=== PATIENT | male | born 1955 | race Caucasian/White ===

== ENCOUNTER 2019-12-01 17:04 | Inpatient (IN) | payer OTHER ==
[2019-12-01 17:45] LABS: #Lymphocytes 1.1 thou/uL (1.20-3.40); #Monocytes 0.6 thou/uL (0.11-0.59); %Basophils 0.1 % (0.0-1.0); %Eosinophils 0.1 % (0.0-10.0); %Lymphocytes 10.6 % (21.0-51.0); %Monocytes 5.6 % (0.0-10.0); %Neutrophils 83.7 % (42.0-75.0); Hemoglobin 15.2 g/dL (14.0-18.0); Mean Corpuscular HGB CONC 32.5 g/dL (32.0-36.0); Mean Corpuscular Hemoglobin 31.6 pg (27.0-31.0); Mean Corpuscular Volume 97.4 fL (78.0-98.0); Mean Platelet Volume 9.2 fL (7.4-10.4); Platelet Count 133 thou/uL (130-400); RBC Distribution Width 11.5 % (11.5-14.5); White Blood Cell (WBC) Count 10.8 thou/uL (4.8-10.8)
[2019-12-01 18:07] LABS: ALT (SGPT) 16 U/L (8-55); AST (SGOT) 55 U/L (5-34); Alkaline Phosphatase 121 U/L (40-110); Anion Gap 17 mmol/L (10-20); BUN (Urea Nitrogen) 19 mg/dL (8.4-25.7); CK (CPK) 2595 U/L (30-200); Calc. Creatinine Clearance 0 mL/min (70-130); Carbon Dioxide 21 mmol/L (23-31); Chloride 106 mmol/L (98-107); Estimated GFR-MDRD Greater than 90; Globulin 4.2 g/dL (2.4-3.5); Glucose 102 mg/dL (80-115); Protein, Total 9.2 g/dL (5.8-8.1); Sodium 140 mmol/L (136-145)
--- NOTE | 2019-12-01 18:23 | CT ---
CT HEAD WITHOUT CONTRAST: 12/01/19 INDICATIONS: Mental status change. There are no comparison studies. FINDINGS: There is large area of encephalomalacia involving the right temporal frontal lobe and parasylvian re gion indicating an old right middle cerebral artery distribution infarct. There is cortical lucency with sulcal effacement consistent with cytotoxic edema involving the left f rontal lobe consistent with acute/subacute infarct in the left MCA distribution. No hemorrhage. Ventricles have normal position. There is mild ex vacuo dilatation of the right lateral ventricle due to the right side volume loss. IMPRESSION: 1. Evidence of acute/subacute infarct involving the left frontal lobe. 2. Large area of encephalomalacia involving the right cerebral hemisphere indicating old infarct as described above. Findings relayed to the Emergency Room physician, Dr. Schultz at time of dictation. POS: JOSEPH
--- NOTE | 2019-12-01 18:29 | RAD ---
PORTABLE CHEST: 12/01/19 HISTORY: Hypertension. Mental status change. No comparison. Cardiomegaly. Mild vascular engorgement without infiltrate, edema, or effusion. IMPRESSION: Cardiomegaly with mild vascular engorgement. POS: AGW
[2019-12-01 18:39] LABS: CKMB 13.1 ng/mL (0-6.6)
[2019-12-01] MEDS ORDERED: Aspirin 300 MG Suppository ONE (19:01)
[2019-12-01 20:04] LABS: Bacteria/HPF None Seen HPF (None Seen); Bilirubin Negative (Negative); Blood, Urine 1+ (Negative); Clarity Clear (Clear); Glucose, Urine (Dipstick) Normal (Negative); Leukocyte Negative Leu/uL (Negative); Nitrite Negative (Negative); Protein, Urine (Dipstick) 30 mg/dL (Neg-Trace); RBC/HPF 21-50 HPF (0-3); Squamous Epithelial None Seen HPF (0-3); Urobilinogen Normal mg/dL (Less than 2); WBC/HPF 0-3 HPF (0-3)
[2019-12-01 21:44] LABS: Troponin I 0.034 ng/mL (< 0.028)
[2019-12-01] MEDS ORDERED: Cefepime 2 GM VIAL ONE (22:02)
[2019-12-01] MEDS ORDERED: Acetaminophen 650 MG Suppository ONE (22:04)
[2019-12-01] MEDS ORDERED: Vancomycin 1.5 GRAM/300 ML BAG 1.5 GM in Premix Bag 1 BAG IVPB SCH (22:15)
[2019-12-01] MEDS ORDERED: hydrALAZINE 20 MG/ML VIAL SLOW IVP PRN (23:09)
[2019-12-01] MEDS ORDERED: Ondansetron ODT 4 MG TAB PO PRN (23:14)
[2019-12-01] MEDS ORDERED: Ondansetron PF 4 MG/2 ML Vial IVP PRN (23:14)
[2019-12-01] MEDS ORDERED: Meropenem 1 GM in Sodium Chloride 0.9% 100 ML IVPB SCH (23:15)
[2019-12-02 00:23] LABS: INR-International Normal Ratio 1.2; Prothrombin Time 15.4 SEC (12.0-14.7)
[2019-12-02 00:24] LABS: PTT 30.6 SEC (22.9-36.1)
[2019-12-02] MEDS: D5 1/2 NS w/20 mEq KCL 1,000 ML IV SCH ×3 (00:48→14:31)
[2019-12-02] MEDS: MEROPENEM 1 GM/50 ML 1 GM in Premix Bag 1 BAG IVPB SCH ×3 (00:49→17:19)
[2019-12-02] MEDS ORDERED: Labetalol HCl 100 MG/20 ML VIAL SLOW IVP PRN (00:54)
--- NOTE | 2019-12-02 01:35 | HP ---
PRIMARY CARE PHYSICIAN: Patient is an inmate. CHIEF COMPLAINT: Altered mentation. HISTORY OF PRESENT ILLNESS: Patient is a 64-year-old male, with CVA, hypertension, and atrial fibrillation, was brought in to the emergency room by EMS with above complaints. History is limited due to the patient's mentation. He is currently at the [facility]. His baseline mentation is unavailable. He has chronic left-sided weakness secondary to right MCA CVA with hemorrhagic transformation in the past. He is currently on aspirin. He used to be on Coumadin until one or two months ago. Again, history is limited due to lack of access to the previous records. The patient was found to have altered mentation around 2:00 p.m. His blood pressures were in 160s. Eventually, [employer] was called. Patient is unable to talk at this time, however, he is able to nod to yes and no on and off. There is no fever or chills reported. He denies any pain at this time. In the emergency room, his initial vital signs showed temperature 99.8, respirations 20, pulse rate of 115 with a blood pressure of 179/118, and O2 saturation of 93% on room air. His CT scan of the brain showed acute/subacute infarct involving the left frontal lobe. He received aspirin in the emergency room. Later on, he was found to have 100.8 fever, for which blood cultures were obtained. He then received vancomycin and cefepime. He failed swallow evaluation in the emergency room. His initial NIH was 13 with a repeat NIH of 20. PAST MEDICAL HISTORY: 1. Hypertension. 2. Chronic atrial fibrillation. 3. Chronic hepatitis C. 4. Dementia. 5. Benign prostatic hypertrophy. 6. Degenerative joint disease. 7. 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 8. Hemorrhoids. PAST SURGICAL HISTORY: Unable to obtain due to current mentation. CURRENT MEDICATIONS: At the unit, 1. Aspirin 81 mg daily. 2. Colace 100 mg twice a day. 3. Terazosin 1 mg daily. 4. Cymbalta 30 mg daily. 5. Lipitor 40 mg at bedtime. 6. Amlodipine 5 mg daily. 7. Keppra 500 mg twice a day. 8. Lisinopril 40 mg daily. 9. Minoxidil 2.5 mg daily. 10. Omeprazole 20 mg daily. SOCIAL HISTORY: Cannot be obtained due to current mentation. FAMILY HISTORY: Cannot be obtained due to current mentation. REVIEW OF SYSTEMS: Cannot be obtained due to current mentation. PHYSICAL EXAMINATION: VITAL SIGNS: As discussed above. GENERAL: A 64-year-old male, in no apparent distress. HEENT: Head, atraumatic and normocephalic. Sclerae anicteric. No oral lesion. NECK: Supple. No JVD. No carotid bruit. No neck stiffness. LUNGS: Showed diminished air entry at bilateral bases with few rhonchi. HEART: 2/6 systolic murmur over the mitral area. ABDOMEN: Soft, nontender. Bowel sounds present. No rebound or guarding. EXTREMITIES: 1+ edema in bilateral lower extremity. No calf tenderness. SKIN: Warm and dry. PSYCHIATRY: Limited due to current mentation. NEUROLOGIC: Limited due to current mentation. There is no hypotonia on the right on limited examination. His strength in the left lower extremity is 3/5. He has handcuffs in the upper extremities. DIAGNOSTIC TESTS: 1. EKG by my review showed atrial fibrillation with PVCs. 2. CBC showed WBC 10.8 with hemoglobin 15.2, hematocrit 46.8, and platelet of 133. 3. PT of 15.4, INR 1.2, and PTT 30.6. 4. Chemistry showed sodium 140, potassium 4, chloride 106, bicarb 21, BUN 19, creatinine 0.8, calcium 11.0, AST of 55, ALT of 16, and alkaline phosphatase of 121. CK of 2595, troponin of 0.039 with CK-MB of 13. 5. Urinalysis was negative for wbc or bacteria. 6. Blood cultures have been sent. 7. Chest x-ray by my review was negative for infiltrate or edema. 8. CT scan of the brain by my review as discussed above. IMPRESSION: 1. Acute left frontal lobe cerebrovascular accident. 2. Encephalopathy secondary to cerebrovascular accident. 3. Rhabdomyolysis. 4. Low-grade fever of unclear etiology. 5. History of right middle cerebral artery cerebrovascular accident with hemorrhagic transformation causing left-sided weakness. 6. Hypertension. 7. Chronic atrial fibrillation, on aspirin. 8. Chronic hepatitis C. 9. Benign prostatic hypertrophy. 10. Degenerative joint disease. 11. Dementia. PLAN: Patient will be monitored in the stroke unit. We will continue aspirin. He has failed swallow evaluation. We will change Keppra to IV. Stroke Team will be consulted. Empiric meropenem for now. He received 1 dose of vancomycin in the emergency room. Recheck CK with other labs in the a.m. Check fasting lipid profile in the a.m. Neurology consultation. We will get MRI of the brain and carotid Doppler. Echocardiogram will be obtained. Neuro checks per protocol. Speech Therapy consultation. Gentle IV hydration for now. We will discuss the plan of care with the patient. Job ID: [id number]
[2019-12-02 05:34] LABS: ALT (SGPT) 16 U/L (8-55); AST (SGOT) 58 U/L (5-34); Albumin 3.8 g/dL (3.4-4.8); Alkaline Phosphatase 89 U/L (40-110); Anion Gap 14 mmol/L (10-20); BUN (Urea Nitrogen) 17 mg/dL (8.4-25.7); Bilirubin, Total 0.8 mg/dL (0.2-1.2); CK (CPK) 2558 U/L (30-200); Calc. Creatinine Clearance 121 mL/min (70-130); Calcium 9.4 mg/dL (7.8-10.44); Carbon Dioxide 18 mmol/L (23-31); Cardiac Risk 3.1 (Less than 4.5); Chloride 111 mmol/L (98-107); Cholesterol 65 mg/dl (< 200 Desired); Estimated GFR-MDRD Greater than 90; Globulin 3.1 g/dL (2.4-3.5); Glucose 107 mg/dL (80-115); HDL Cholesterol 21 mg/dL (>60 Neg Risk); LDL Cholesterol, Calculated 35 mg/dL; Magnesium 1.7 mg/dL (1.6-2.6); Potassium 3.9 mmol/L (3.5-5.1); Protein, Total 6.9 g/dL (5.8-8.1); Sodium 139 mmol/L (136-145); Triglycerides 44 mg/dL (Less than 150)
[2019-12-02 05:38] LABS: Troponin I 0.041 ng/mL (< 0.028)
[2019-12-02 06:23] LABS: Hemoglobin 13.2 g/dL (14.0-18.0); Mean Corpuscular HGB CONC 32.8 g/dL (32.0-36.0); Mean Corpuscular Hemoglobin 32.5 pg (27.0-31.0); Mean Corpuscular Volume 99.3 fL (78.0-98.0); RBC Distribution Width 11.4 % (11.5-14.5); Red Blood Cell (RBC) Count 4.07 mill/uL (4.70-6.10); White Blood Cell (WBC) Count 7.1 thou/uL (4.8-10.8)
[2019-12-02 06:47] LABS: #Monocytes 0.6 thou/uL (0.11-0.59); #Neutrophils 5.5 thou/uL (1.40-6.50); %Basophils 0.1 % (0.0-1.0); %Eosinophils 0.3 % (0.0-10.0); %Lymphocytes 13.7 % (21.0-51.0); %Monocytes 8.7 % (0.0-10.0); %Neutrophils 77.1 % (42.0-75.0); Mean Platelet Volume 8.9 fL (7.4-10.4); Platelet Count 114 thou/uL (130-400); Platelet Morphology Comment Appears Adequate
[2019-12-02] MEDS ORDERED: Aspirin 81 mg Enteric Coated Tablet PO SCH (09:00)
[2019-12-02] MEDS ORDERED: Heparin 5,000 UNITS/ML VIAL SC SCH (09:00)
[2019-12-02] MEDS ORDERED: Aspirin 300 MG Suppository PR SCH (09:00)
[2019-12-02] MEDS: Famotidine/PF 20 mg/2ml Vial SLOW IVP SCH ×2 (09:13→21:26)
[2019-12-02] MEDS: Famotidine 20 MG TAB PO SCH ×2 (09:13→21:47)
[2019-12-02 10:11] LABS: SARS-CoV-2 MS2 Positive; SARS-CoV-2 N Gene Negative; SARS-CoV-2 S Gene Negative; SARS-CoV-2 orf1ab Negative
--- NOTE | 2019-12-02 11:45 | ULT ---
BILATERAL CAROTID DUPLEX ULTRASOUND: HISTORY: Acute CVA. TECHNIQUE: Oh scale ultrasound with color flow and spectral Doppler imaging of the extracranial carotid artery systems was performed bilaterally. FINDINGS: Oh scale ultrasound with color flow and spectral Doppler imaging of the extracranial carotid artery systems is performed bilaterally. FINDINGS: There is plaque formation noted on both sides. The peak systolic velocity in the right ICA measures 50 cm/s with an end-diastolic velocity of 17 cm/ s and a systolic ratio of 0.81. The peak systolic velocity in the left ICA measures 65 cm/s with an end-diastolic velocity of 3 cm/s and a systolic ratio of 0.82. Flow in both vertebral arteries remains antegrade. IMPRESSION: No evidence of hemodynamically significant stenosis. POS: SJDI
--- NOTE | 2019-12-02 12:49 | PDOC.HOSPP ---
- Subjective Encounter Date: 12/02/19 Encounter Time: 12:45 Subjective: f/u for L frontal CVA likely embolic in context of chronic a-fib not on anticoagulation. Receiving general stroke protocol, pending DENTAL OFFICER evaluation. Remains aphasic. - Objective Vital Signs & Weight: Vital Signs (12 hours) Temp Pulse Resp BP BP Pulse Ox 12/02/19 11:45 99.1 F 101 H 18 167/105 H 92 L 12/02/19 09:40 100.5 F H 103 H 28 H 165/99 H 93 L 12/02/19 03:14 98.7 F 85 16 151/89 H 92 L 12/02/19 01:29 93 L Weight Weight 200 lb Result Diagrams: 12/02/19 05:09 12/02/19 05:09 Additional Labs: Microbiology 12/01/19 22:11 Venous blood - Left Hand Blood Culture - Preliminary Specimen has been received and culture in progress. No Growth to date. 12/01/19 21:42 Venous blood - Left Hand Blood Culture - Preliminary Specimen has been received and culture in progress. No Growth to date. Laboratory Tests 12/01/19 12/01/19 12/01/19 17:30 17:30 21:48 Lactic Acid 1.2 Magnesium 1.8 AST 55 H Creatine Kinase 2595 H TSH 3rd Generation COVID-19 PCR 12/01/19 12/02/19 12/02/19 22:25 05:09 05:09 Lactic Acid Magnesium 1.7 AST 58 H Creatine Kinase 2558 H TSH 3rd Generation 1.0758 COVID-19 PCR Not Detected Radiology Reviewed by me: Yes (Carotid sono - no significant stenosis) EKG Reviewed by me: Yes (Tele - A-fib in 90's) Hospitalist ROS - Medication Medications: Active Medications Generic Name Dose Route Start Last Admin Trade Name Freq PRN Reason Stop Dose Admin Aspirin 81 mg 12/02/19 09:00 12/02/19 09:14 Ecotrin PO Not Given DAILY ADALGISA Aspirin 300 mg 12/02/19 09:00 12/02/19 09:12 Aspirin [place] 300 mg DAILY ADALGISA Administration Famotidine 20 mg 12/02/19 09:00 12/02/19 09:13 Pepcid SLOW IVP 20 mg Q12HR ADALGISA Administration Famotidine 20 mg 12/02/19 09:00 12/02/19 09:13 Pepcid PO Not Given BID ADALGISA Heparin Sodium (Porcine) 5,000 units 12/02/19 09:00 12/02/19 09:12 Heparin SC 5,000 units BID ADALGISA Administration Potassium Chloride/Dextrose/Sod Cl 1,000 mls @ 125 mls/hr 12/01/19 23:15 12:20 D5 1/2 Ns W/20 Meq Kcl IV 1,000 mls .Q8H ADALGISA Administration Meropenem 1 gm/ Device 50 mls @ 100 mls/hr 12/01/19 23:59 12/02/19 09:14 IVPB 50 mls 0800,1600,2359 ADALGISA Administration Levetiracetam 500 mg/ Device 100 mls @ 200 mls/hr 12/02/19 09:00 12/02/19 11: 12 IVPB 100 mls BID ADALGISA Administration Sodium Chloride 10 ml 12/01/19 23:09 12/02/19 09:15 Flush - Normal Saline IVF 10 ml PRN PRN Administration Saline Flush - Exam General Appearance: NAD, awake alert Eye: PERRL, anicteric sclera ENT: normocephalic atraumatic, no oropharyngeal lesions Neck: supple, symmetric, no JVD, no thyromegaly Heart: no gallops, no rubs, normal peripheral pulses, irregular, murmur present , II/IV Heart - other findings: S1, S2 Respiratory: CTAB, no wheezes, no rales, no ronchi, normal chest expansion Gastrointestinal: soft, non-tender, non-distended, normal bowel sounds, no palpable masses Extremities: no cyanosis, no clubbing, no edema Skin: normal turgor, no lesions Neurological - other findings: L hemiplegia - chronic, aphasic, RUE weakness Musculoskeletal: generalized weakness Psychiatric: oriented to person, somnolent Hosp A/P (1) Acute CVA (cerebrovascular accident) Code(s): I63.9 - CEREBRAL INFARCTION, UNSPECIFIED Status: Acute Plan: Likely embolic given A-fib and not on anticoagulation, continue ASA, 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, stroke protocol, DENTAL OFFICER pending (2) Expressive aphasia Code(s): R47.01 - APHASIA Status: Acute Plan: Secondary to #1, DENTAL OFFICER following (3) Acute metabolic encephalopathy Code(s): G93.41 - METABOLIC ENCEPHALOPATHY Status: Acute Plan: Persistent, secondary to #1 (4) Rhabdomyolysis Code(s): M62.82 - RHABDOMYOLYSIS Status: Acute Qualifiers: Rhabdomyolysis type: non-traumatic Qualified Code(s): M62.82 - Rhabdomyolysis Plan: Continue to monitor, low-volume IVF's, avoid statins currently, serial CK monitoring (5) Chronic atrial fibrillation Code(s): I48.20 - CHRONIC ATRIAL FIBRILLATION, UNSPECIFIED Status: Chronic Plan: Continue rate-control medication regimen, ASA, consider risk for detention anticoagulation (6) Febrile Code(s): R50.9 - FEVER, UNSPECIFIED Status: Acute Plan: ? etiology, no focal process identified, continue monitor closely, r/o for COVID x 1 (7) HTN (hypertension) Code(s): I10 - ESSENTIAL (PRIMARY) HYPERTENSION Status: Chronic Qualifiers: Hypertension type: essential hypertension Qualified Code(s): I10 - Essential (primary) hypertension Plan: Labile, resume home BP regimen when cleared for po intake, permissive HTN currently per guidelines - Plan continue antibiotics, PT/OT, social media senior associate, speech therapy, DVT proph w/SCDs Continue routine stroke protocol ASA daily Hold statins x 48h given rhabdomyolysis Echo pending DENTAL OFFICER/PT/OT Consider risks of anticoagulation detention Continue IVF's AM lab: CMP, CK
--- NOTE | 2019-12-02 15:03 | EKG ---
Test Reason : Blood Pressure : / mmHG Vent. Rate : 116 BPM Atrial Rate : 116 BPM P-R Int : 000 ms QRS Dur : 094 ms QT Int : 322 ms P-R-T Axes : 000 108 -70 degrees QTc Int : 447 ms Atrial fibrillation with frequent Premature ventricular and fusion complexes Motion artifact Abnormal ECG Confirmed by HARLAN PIEDRA DO ([id number]), general expeditor SHERRI COBB ([id number]) on 12/02/2019 3:03:14 PM Referred By: Confirmed By:HARLAN PIEDRA DO
--- NOTE | 2019-12-02 15:16 | MRI ---
MRI BRAIN NONCONTRAST: DATE: 12/02/2019 HISTORY: 64-year-old male with stroke FINDINGS: There is a moderate size region of cytotoxic edema involving the lateral aspect of the left frontal l obe, beginning inferiorly at the region just superior to the greater wing of the sphenoid bone, and extending superiorly to involve the middle frontal gyrus near the convexity. This also contiguously i nvolves the left insula, and reaches the external capsule. This has restricted diffusion, and local effacement of sulcal markings. At the far inferior aspect of this acute infarction, there is blooming artifact on the gradient echo sequence (image 12 of 27, series 5), consistent with hemorrhagic transformation. In the contralateral right anterior temporal lobe, including the temporal tip and anterior operculum, plus the adjacent right lateral suprasylvian frontal lobe, contiguous with involvement of a large portion of the right basal ganglia, there is a moderate size region of encephalomalacia and gliosis. There is hemosiderin stain associated with the basal ganglia component of this indicating prior hemorrhagic transformation. There is mild ex vacuo dilation of the body of the right lateral ventricl e. No mass effect or midline shift. No extra-axial fluid collection. Mild to moderate chronic ischemic w treva matter changes. At the left paramedian aspect of the left upper cerebrum there is a short curvilinear focus of magnet ic susceptibility blooming artifact on the gradient echo sequence. This is favored to be a small hemosiderin stain rather than acute hemorrhage, although acute hemorrhage is not completely excluded. IMPRESSION: 1) moderately large acute or subacute infarction of left middle cerebral artery territory. 2) at the far inferior portion of this infarction, there is a small region of hemorrhagic transformat ion (which may or may not be visible on CT). 3) moderately large old infarction in the contralateral right middle cerebral artery territory with p rior hemorrhagic transformation.
[2019-12-02] MEDS ORDERED: Atorvastatin Calcium 40 MG TAB PO SCH (21:00)
[2019-12-02] MEDS: Atorvastatin Calcium 10 MG TAB PO SCH (21:26)
[2019-12-03] MEDS: MEROPENEM 1 GM/50 ML 1 GM in Premix Bag 1 BAG IVPB SCH ×3 (00:04→16:31)
[2019-12-03] MEDS: D5 1/2 NS w/20 mEq KCL 1,000 ML IV SCH ×3 (00:05→21:51)
[2019-12-03 05:11] LABS: ALT (SGPT) 18 U/L (8-55); AST (SGOT) 63 U/L (5-34); Albumin 3.9 g/dL (3.4-4.8); Alkaline Phosphatase 91 U/L (40-110); Anion Gap 12 mmol/L (10-20); BUN (Urea Nitrogen) 15 mg/dL (8.4-25.7); Bilirubin, Total 0.9 mg/dL (0.2-1.2); CK (CPK) 1819 U/L (30-200); Calc. Creatinine Clearance 124 mL/min (70-130); Calcium 9.5 mg/dL (7.8-10.44); Carbon Dioxide 21 mmol/L (23-31); Chloride 106 mmol/L (98-107); Estimated GFR-MDRD Greater than 90; Globulin 3.4 g/dL (2.4-3.5); Glucose 121 mg/dL (80-115); Protein, Total 7.3 g/dL (5.8-8.1); Sodium 135 mmol/L (136-145)
[2019-12-03] MEDS: Famotidine/PF 20 mg/2ml Vial SLOW IVP SCH ×2 (09:06→21:40)
[2019-12-03] MEDS: Famotidine 20 MG TAB PO SCH ×2 (10:53→21:52)
--- NOTE | 2019-12-03 11:38 | CON ---
DATE OF CONSULTATION: REASON FOR CONSULTATION: Altered mental status. HISTORY OF PRESENT ILLNESS: Mr. Saini is a 64-year-old male with history of prior CVA, hypertension, atrial fibrillation, who was brought to the emergency room by EMS on 12/01/2019 because of altered mental status. He is currently a resident at the [facility], and also has chronic residual left-sided weakness secondary to right MCA stroke with hemorrhagic conversion in the past. He takes aspirin daily, and used to be on Coumadin a couple of months ago. History is obtained by review of the records. Per records, the patient has been altered around 2 p.m. on 2019, his blood pressure was in 160s, so EMS was called. He was unable to talk at that time, so he was brought to [facility]. In the emergency room, his blood pressure was 179/118 with a pulse rate of 115. Head CT was done, which shows acute/subacute infarction involving the left frontal lobe. He was given aspirin in the emergency room and was found to have a fever of 100.8, so COVID testing was done, which came back negative. Neurology was consulted for further recommendations. Vital Signs & Weight: Vital Signs (12 hours) Temp Pulse Pulse Pulse Resp BP BP 12/03/19 09:17 87 88 168/105 H 177/106 H 12/03/19 07:51 97.9 F 86 20 12/03/19 06:25 105 H 24 H BP Pulse Ox 12/03/19 09:17 12/03/19 07:51 138/81 93 L 12/03/19 06:25 164/105 H 94 L Weight Admit Weight 200 lb Weight 200 lb I&O: 12/02/19 12/03/19 12/04/19 06:59 06:59 06:59 Intake Total 864 Balance 864 12/03/19 04:42 Additional Labs: Microbiology 12/01/19 22:11 Venous blood - Left Hand Blood Culture - Preliminary Specimen has been received and culture in progress. No Growth to date. 12/01/19 21:42 Venous blood - Left Hand Blood Culture - Preliminary Specimen has been received and culture in progress. No Growth to date. Laboratory Tests 12/01/19 12/01/19 12/01/19 17:30 17:30 21:48 Lactic Acid 1.2 Magnesium 1.8 AST 55 H Creatine Kinase 2595 H TSH 3rd Generation COVID-19 PCR 12/01/19 12/02/19 12/02/19 22:25 05:09 05:09 Lactic Acid Magnesium 1.7 AST 58 H Creatine Kinase 2558 H TSH 3rd Generation 1.0758 COVID-19 PCR Not Detected Radiology Reviewed by me: Yes (MRI brain - L MCA territorial CVA, old R CVA) EKG Reviewed by me: Yes (Tele - A-fib in 's) - Medication Medications: Active Medications Generic Name Dose Route Start Last Admin Trade Name Freq PRN Reason Stop Dose Admin Atorvastatin Calcium 10 mg 12/02/19 21:00 12/02/19 21:26 Lipitor PO 10 mg HS ADALGISA Administration Famotidine 20 mg 12/02/19 09:00 12/03/19 09:06 Pepcid SLOW IVP 20 mg Q12HR ADALGISA Administration Famotidine 20 mg 12/02/19 09:00 12/03/19 10:53 Pepcid PO Not Given BID ADALGISA Meropenem 1 gm/ Device 50 mls @ 100 mls/hr 12/01/19 23:59 12/03/19 09:06 IVPB 50 mls 0800,1600,2359 ADALGISA Administration Levetiracetam 500 mg/ Device 100 mls @ 200 mls/hr 12/02/19 09:00 12/02/19 21: 27 IVPB 100 mls BID ADALGISA Administration Potassium Chloride/Dextrose/Sod Cl 1,000 mls @ 100 mls/hr 12/02/19 12:58 00:05 D5 1/2 Ns W/20 Meq Kcl IV 1,000 mls .Q10H ADALGISA Administration Sodium Chloride 10 ml 12/01/19 23:09 12/02/19 09:15 Flush - Normal Saline IVF 10 ml PRN PRN Administration Saline Flush PAST MEDICAL HISTORY: Hypertension, chronic atrial fibrillation, chronic hepatitis C, dementia, benign prostatic hypertrophy, degenerative joint disease, and history of prior stroke. PAST SURGICAL HISTORY: Nothing significant. FAMILY HISTORY: Cannot be obtained secondary to lack of mentation. SOCIAL HISTORY: Cannot be obtained due to the patient's condition. CURRENT MEDICATIONS: 1. Aspirin 81 mg daily. 2. Colace 100 mg twice daily. 3. Terazosin 1 mg daily. 4. Cymbalta 30 mg daily. 5. Lipitor 40 mg at bedtime. 6. Amlodipine 5 mg daily. 7. Keppra 500 mg twice daily. 8. Lisinopril 40 mg daily. 9. Minoxidil 2.5 mg daily. 10. Omeprazole 20 mg daily. REVIEW OF SYSTEMS: Unable to obtain. Positive for weakness. PHYSICAL EXAMINATION: CVS: Regular rate and rhythm. CHEST: Clear. ABDOMEN: Soft. NEUROLOGIC: Mental status; the patient is extremely somnolent. He does not follow commands. He does not maintain any eye contact. Cranial nerves; pupils equal and reactive to light. Face symmetric. Mild left facial droop. Corneas positive. Motor; muscle tone and bulk are normal. Strength; exam limited due to somnolence. Withdraws to nail bed pressure Cerebellar could not be examined secondary to mentation. Gait deferred because of the patient's safety reasons. Reflexes symmetric bilaterally. ASSESSMENT AND PLAN: Mr. Robert Saini is admitted for evaluation and management of new left frontal infarction. He does have risk factors for stroke. 1. MRI of the brain reviewed, which showed a large acute/subacute infarction in the left middle cerebral artery territory. Imaging showed large old infarction in the contralateral right middle cerebral artery territory with prior hemorrhagic conversion. 2. Carotid Dopplers reviewed, which did not reveal any hemodynamically significant stenosis. 3. Continue neuro checks every 4 hours. 4. Consider EEG for altered mental status to rule out seizures. 5. Continue home medications. 6. Continue aspirin for secondary stroke prevention. 7. Resume statin once the rhabdomyolysis is under control. 8. Echocardiography pending. 9. Consider risk of anticoagulation long-term since he is at a fall risk, 10. PT/OT/speech. 11. Continue medical management per Primary Team. We will continue to follow. Thank you for the consult. Job ID: [id number] [id number]
--- NOTE | 2019-12-03 11:43 | PDOC.HOSPP ---
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 Speaking more per nursing and tolerating po intake. EEG today per Neurology. - Objective Vital Signs & Weight: Vital Signs (12 hours) Temp Pulse Pulse Pulse Resp BP BP 12/03/19 09:17 87 88 168/105 H 177/106 H 12/03/19 07:51 97.9 F 86 20 12/03/19 06:25 105 H 24 H BP Pulse Ox 12/03/19 09:17 12/03/19 07:51 138/81 93 L 12/03/19 06:25 164/105 H 94 L Weight Admit Weight 200 lb Weight 200 lb I&O: 12/02/19 12/03/19 12/04/19 06:59 06:59 06:59 Intake Total 864 Balance 864 Result Diagrams: 12/02/19 05:09 12/03/19 04:42 Additional Labs: Microbiology 12/01/19 22:11 Venous blood - Left Hand Blood Culture - Preliminary Specimen has been received and culture in progress. No Growth to date. 12/01/19 21:42 Venous blood - Left Hand Blood Culture - Preliminary Specimen has been received and culture in progress. No Growth to date. Laboratory Tests 12/01/19 12/01/19 12/01/19 17:30 17:30 21:48 Lactic Acid 1.2 Magnesium 1.8 AST 55 H Creatine Kinase 2595 H TSH 3rd Generation COVID-19 PCR 12/01/19 12/02/19 12/02/19 22:25 05:09 05:09 Lactic Acid Magnesium 1.7 AST 58 H Creatine Kinase 2558 H TSH 3rd Generation 1.0758 COVID-19 PCR Not Detected Microbiology 12/01/19 22:11 Venous blood - Left Hand Blood Culture - Preliminary Specimen has been received and culture in progress. No Growth to date. 12/01/19 21:42 Venous blood - Left Hand Blood Culture - Preliminary Specimen has been received and culture in progress. No Growth to date. Radiology Reviewed by me: Yes (MRI brain - L MCA territorial CVA, small hemorrhage inferiorly, old R CVA) EKG Reviewed by me: Yes (Tele - A-fib in 90's) Hospitalist ROS - Medication Medications: Active Medications Generic Name Dose Route Start Last Admin Trade Name Freq PRN Reason Stop Dose Admin Atorvastatin Calcium 10 mg 12/02/19 21:00 12/02/19 21:26 Lipitor PO 10 mg HS ADALGISA Administration Famotidine 20 mg 12/02/19 09:00 12/03/19 09:06 Pepcid SLOW IVP 20 mg Q12HR ADALGISA Administration Famotidine 20 mg 12/02/19 09:00 12/03/19 10:53 Pepcid PO Not Given BID ADALGISA Meropenem 1 gm/ Device 50 mls @ 100 mls/hr 12/01/19 23:59 12/03/19 09:06 IVPB 50 mls 0800,1600,2359 ADALGISA Administration Levetiracetam 500 mg/ Device 100 mls @ 200 mls/hr 12/02/19 09:00 12/02/19 21: 27 IVPB 100 mls BID ADALGISA Administration Potassium Chloride/Dextrose/Sod Cl 1,000 mls @ 100 mls/hr 12/02/19 12:58 00:05 D5 1/2 Ns W/20 Meq Kcl IV 1,000 mls .Q10H ADALGISA Administration Sodium Chloride 10 ml 12/01/19 23:09 12/02/19 09:15 Flush - Normal Saline IVF 10 ml PRN PRN Administration Saline Flush - Exam General Appearance: NAD, awake alert Eye: PERRL, anicteric sclera ENT: normocephalic atraumatic, no oropharyngeal lesions Neck: supple, symmetric, no JVD, no thyromegaly, no lymphadenopathy, no carotid bruit Heart: no gallops, no rubs, normal peripheral pulses, irregular, murmur present Heart - other findings: S1, S2 Respiratory: CTAB, no wheezes, no rales, no ronchi, normal chest expansion, no tachypnea Gastrointestinal: soft, non-tender, non-distended, normal bowel sounds, no palpable masses Extremities: no cyanosis, no clubbing Skin: normal turgor Neurological - other findings: expressive dysphasia, R hemiparesis Psychiatric: oriented to person, somnolent Hosp A/P (1) Acute CVA (cerebrovascular accident) Code(s): I63.9 - CEREBRAL INFARCTION, UNSPECIFIED Status: Acute Plan: L MCA territorial infarct, holding ASA and anticoagulation due to hemorrhagic component by MRI imaging, likely may resume ASA in 2-3 days (2) Expressive aphasia Code(s): R47.01 - APHASIA Status: Acute Plan: DIELECTRIC PRESS OPERATOR monitoring (3) Acute metabolic encephalopathy Code(s): G93.41 - METABOLIC ENCEPHALOPATHY Status: Acute Plan: Minimal improvement, serial monitoring, supportive care (4) Rhabdomyolysis Code(s): M62.82 - RHABDOMYOLYSIS Status: Acute Qualifiers: Rhabdomyolysis type: non-traumatic Qualified Code(s): M62.82 - Rhabdomyolysis Plan: Improved, hold statins, continue IVF's, serial CPK (5) Chronic atrial fibrillation Code(s): I48.20 - CHRONIC ATRIAL FIBRILLATION, UNSPECIFIED Status: Chronic Plan: Rate variable, rate-control measures, no anticoagulation due to hemorrhagic component of current CVA (6) Febrile Code(s): R50.9 - FEVER, UNSPECIFIED Status: Acute Plan: ? Neuro-mediated fever, serial monitoring, no focal infectious process noted (7) HTN (hypertension) Code(s): I10 - ESSENTIAL (PRIMARY) HYPERTENSION Status: Chronic Qualifiers: Hypertension type: essential hypertension Qualified Code(s): I10 - Essential (primary) hypertension Plan: Labile, resume home BP regimen, serial monitoring - Plan PT/OT, foster care social worker, speech therapy, DVT proph w/SCDs Continue routine stroke protocol ASA held due to hemorrhagic component of CVA Hold statins x 48h given rhabdomyolysis Echo pending DIELECTRIC PRESS OPERATOR/PT/OT Consider risks of anticoagulation tank terminal gauger, hold any anticoagulation currently Continue IVF's Continue Keppra 500mg BID AM lab: BMP, CK
--- NOTE | 2019-12-03 15:17 | EEG ---
Referring Physician: Lauren RUEDA EEG # [id number] TEST TYPE: PORTABLE EXTENDED VIDEO EEG REPORT: This EEG was performed using 24 channel [email or web address] video digital EEG machine with 24 disc electrodes. This was a an extended 2 hour 30 minutes of EEG recording. BACKGROUND: The posterior background rhythm was not observed. HYPERVENTILATION: Was not performed. PHOTIC STIMULATION: No significant response seen with photic stimulation: SLEEP: No stage change was observed. EEG DIAGNOSIS: 1.) Generalized irregular theta and delta activity seen throughout the recording, right greater than left. 2.) Absence of posterior background rhythm. CLINICAL INTERPRETATION: THIS EEG IS CONSISTENT WITH MODERATE GENERALIZED NONSPECIFIC CEREBRAL DYSFUNCTION. NO ICTAL OR INTERICTAL EPILEPTIFORM ABNORMALITIES SEEN DURING THE RECORDING. Exercise Planner: STAN Criminal Researcher: [email or web address] LEHMAN
[2019-12-03] MEDS: Minoxidil 2.5 MG TAB PO SCH (21:40)
[2019-12-04] MEDS: MEROPENEM 1 GM/50 ML 1 GM in Premix Bag 1 BAG IVPB SCH ×4 (00:21→23:58)
[2019-12-04] MEDS: D5 1/2 NS w/20 mEq KCL 1,000 ML IV SCH ×3 (01:13→12:16)
[2019-12-04 05:01] LABS: Anion Gap 11 mmol/L (10-20); BUN (Urea Nitrogen) 13 mg/dL (8.4-25.7); CK (CPK) 614 U/L (30-200); Calc. Creatinine Clearance 124 mL/min (70-130); Calcium 9.6 mg/dL (7.8-10.44); Carbon Dioxide 23 mmol/L (23-31); Chloride 105 mmol/L (98-107); Estimated GFR-MDRD Greater than 90; Glucose 122 mg/dL (80-115); Potassium 3.8 mmol/L (3.5-5.1); Sodium 135 mmol/L (136-145)
[2019-12-04] MEDS ORDERED: Lisinopril 20 MG TAB PO SCH (09:00)
[2019-12-04] MEDS: Amlodipine 5 MG TAB PO SCH (10:07)
[2019-12-04] MEDS: Famotidine 20 MG TAB PO SCH ×2 (10:07→20:38)
[2019-12-04] MEDS: Famotidine/PF 20 mg/2ml Vial SLOW IVP SCH ×2 (10:08→22:33)
[2019-12-04] MEDS: Minoxidil 2.5 MG TAB PO SCH ×2 (10:08→20:39)
[2019-12-04] MEDS: Terazosin HCl 1 MG CAP PO SCH (10:23)
--- NOTE | 2019-12-04 11:05 | PDOC.HOSPP ---
- Subjective Encounter Date: 12/04/19 Subjective: Patient is alert and oriented to himself and place. - Objective Vital Signs & Weight: Vital Signs (12 hours) Temp Pulse Resp BP BP BP Pulse Ox 12/04/19 07:30 99.6 F 84 18 165/103 H 96 12/04/19 04:22 98.9 F 157/94 H 12/04/19 03:20 100.9 F H 99 18 194/100 H 92 L 12/03/19 23:53 99.1 F 91 20 175/104 H 95 Weight Admit Weight 200 lb Weight 200 lb I&O: 12/03/19 12/04/19 12/05/19 06:59 06:59 06:59 Intake Total 864 118 Balance 864 118 Result Diagrams: 12/02/19 05:09 12/04/19 04:20 Radiology Reviewed by me: Yes EKG Reviewed by me: Yes Hospitalist ROS - Review of Systems Constitutional: denies: fever, chills, sweats, weakness, malaise, other Eyes: denies: pain, vision change, conjunctivae inflammation, eyelid inflammation, redness, other ENT: denies: ear pain, ear discharge, nose pain, nose discharge, nose congestion , mouth pain, mouth swelling, throat pain, throat swelling, other Respiratory: denies: cough, dry, shortness of breath, hemoptysis, SOB with excertion, pleuritic pain, sputum, wheezing, other Cardiovascular: denies: chest pain, palpitations, orthopnea, paroxysmal noc. dyspnea, edema, light headedness, other Gastrointestinal: denies: nausea, vomiting, abdominal pain, diarrhea, constipation, melena, hematochezia, other Genitourinary: denies: dysuria, frequency, incontinence, hematuria, retention, other Musculoskeletal: denies: neck pain, shoulder pain, arm pain, back pain, hand pain, leg pain, foot pain, other Neurological: reports: weakness, numbness, incoordination, change in speech, confusion - Medication Medications: Active Medications Generic Name Dose Route Start Last Admin Trade Name Freq PRN Reason Stop Dose Admin Amlodipine Besylate 5 mg 12/04/19 09:00 12/04/19 10:07 Norvasc PO 5 mg DAILY ADALGISA Administration Atorvastatin Calcium 10 mg 12/02/19 21:00 12/02/19 21:26 Lipitor PO 10 mg HS ADALGISA Administration Famotidine 20 mg 12/02/19 09:00 12/04/19 10:08 Pepcid SLOW IVP Not Given Q12HR ADALGISA Famotidine 20 mg 12/02/19 09:00 12/04/19 10:07 Pepcid PO 20 mg BID ADALGISA Administration Meropenem 1 gm/ Device 50 mls @ 100 mls/hr 12/01/19 23:59 12/04/19 10:07 IVPB 50 mls 0800,1600,2359 ADALGISA Administration Levetiracetam 500 mg/ Device 100 mls @ 200 mls/hr 12/02/19 09:00 12/04/19 10: 07 IVPB 100 mls BID ADALGISA Administration Potassium Chloride/Dextrose/Sod Cl 1,000 mls @ 100 mls/hr 12/02/19 12:58 08/24 01:13 D5 1/2 Ns W/20 Meq Kcl IV 1,000 mls .Q10H ADALGISA Administration Lisinopril 40 mg 12/04/19 09:00 12/04/19 10:08 Zestril PO 40 mg DAILY ADALGISA Administration Minoxidil 2.5 mg 12/03/19 21:00 12/04/19 10:08 Minoxidil PO 2.5 mg BID ADALGISA Administration Sodium Chloride 10 ml 12/01/19 23:09 12/02/19 09:15 Flush - Normal Saline IVF 10 ml PRN PRN Administration Saline Flush Terazosin HCl 1 mg 12/04/19 09:00 12/04/19 10:23 Hytrin PO 1 mg DAILY ADALGISA Administration - Exam General Appearance: awake alert Eye: PERRL, anicteric sclera ENT: normocephalic atraumatic, no oropharyngeal lesions, moist mucosa Neck: supple Heart: RRR Respiratory: CTAB Gastrointestinal: soft Extremities: no cyanosis, 1+ LE edema Skin: normal turgor Neurological: facial droop, hemiplegia, speech deficit Neurological - other findings: left facial droop, weakness left > right, toes equivocal Psychiatric: normal affect, oriented to person, oriented to place Hosp A/P (1) Acute CVA (cerebrovascular accident) Code(s): I63.9 - CEREBRAL INFARCTION, UNSPECIFIED Status: Acute (2) Acute metabolic encephalopathy Code(s): G93.41 - METABOLIC ENCEPHALOPATHY Status: Acute (3) Expressive aphasia Code(s): R47.01 - APHASIA Status: Acute (4) Febrile Code(s): R50.9 - FEVER, UNSPECIFIED Status: Acute (5) Rhabdomyolysis Code(s): M62.82 - RHABDOMYOLYSIS Status: Acute Qualifiers: Rhabdomyolysis type: non-traumatic Qualified Code(s): M62.82 - Rhabdomyolysis (6) Chronic atrial fibrillation Code(s): I48.20 - CHRONIC ATRIAL FIBRILLATION, UNSPECIFIED Status: Chronic (7) HTN (hypertension) Code(s): I10 - ESSENTIAL (PRIMARY) HYPERTENSION Status: Chronic Qualifiers: Hypertension type: essential hypertension Qualified Code(s): I10 - Essential (primary) hypertension - Plan old records reviewed/req, PT/OT, speech therapy, DVT proph w/SCDs Echocardiography completed which showed severely depressed function. Consider cardiology input. EEG reviewed which did not show any seizure activity or presence of interictal epileptiform discharges. MRI brain reviewed which showed acute/subacute left frontal infarct. Consider risk of hemorrhagic conversion with use of anticoagulation. Anticoagulation held at this time. Restart statin after rhabdomyolysis resolves. Neurochecks every 4 hours. Continue home medications. Strict control of BP and BG. PT/OT/ Speech on board. Continue medical management per primary team.
--- NOTE | 2019-12-04 11:51 | PDOC.HOSPP ---
- Subjective Encounter Date: 12/04/19 Encounter Time: 11:45 Subjective: f/u for L MCA territorial CVA with area of hemorrhagic conversion. - Objective Vital Signs & Weight: Vital Signs (12 hours) Temp Pulse Resp BP BP BP Pulse Ox 12/04/19 07:30 99.6 F 84 18 165/103 H 96 12/04/19 04:22 98.9 F 157/94 H 12/04/19 03:20 100.9 F H 99 18 194/100 H 92 L 12/03/19 23:53 99.1 F 91 20 175/104 H 95 Weight Admit Weight 200 lb Weight 200 lb I&O: 12/03/19 12/04/19 12/05/19 06:59 06:59 06:59 Intake Total 864 118 Balance 864 118 Result Diagrams: 12/02/19 05:09 12/04/19 04:20 Additional Labs: Microbiology 12/01/19 22:11 Venous blood - Left Hand Blood Culture - Preliminary Specimen has been received and culture in progress. No Growth to date. 12/01/19 22:11 Venous blood - Left Hand Blood Culture - Preliminary NO GROWTH AT 48 HOURS 12/01/19 21:42 Venous blood - Left Hand Blood Culture - Preliminary Specimen has been received and culture in progress. No Growth to date. 12/01/19 21:42 Venous blood - Left Hand Blood Culture - Preliminary NO GROWTH AT 48 HOURS Laboratory Tests 12/01/19 12/01/19 12/01/19 17:30 17:30 21:48 Lactic Acid 1.2 Magnesium 1.8 AST 55 H Creatine Kinase 2595 H TSH 3rd Generation COVID-19 PCR 12/01/19 12/02/19 12/02/19 22:25 05:09 05:09 Lactic Acid Magnesium 1.7 AST 58 H Creatine Kinase 2558 H TSH 3rd Generation 1.0758 COVID-19 PCR Not Detected Radiology Reviewed by me: Yes (2D echo - EF 25-30%, mod LAE, mod-severe TR/MR) EKG Reviewed by me: Yes (Tele - A-fib in 80's) Hospitalist ROS - Medication Medications: Active Medications Generic Name Dose Route Start Last Admin Trade Name Freq PRN Reason Stop Dose Admin Amlodipine Besylate 5 mg 12/04/19 09:00 12/04/19 10:07 Norvasc PO 5 mg DAILY ADALGISA Administration Atorvastatin Calcium 10 mg 12/02/19 21:00 12/02/19 21:26 Lipitor PO 10 mg HS ADALGISA Administration Famotidine 20 mg 12/02/19 09:00 12/04/19 10:08 Pepcid SLOW IVP Not Given Q12HR ADALGISA Famotidine 20 mg 12/02/19 09:00 12/04/19 10:07 Pepcid PO 20 mg BID ADALGISA Administration Meropenem 1 gm/ Device 50 mls @ 100 mls/hr 12/01/19 23:59 12/04/19 10:07 IVPB 50 mls 0800,1600,2359 ADALGISA Administration Levetiracetam 500 mg/ Device 100 mls @ 200 mls/hr 12/02/19 09:00 12/04/19 10: 07 IVPB 100 mls BID ADALGISA Administration Potassium Chloride/Dextrose/Sod Cl 1,000 mls @ 100 mls/hr 12/02/19 12:58 08/24 01:13 D5 1/2 Ns W/20 Meq Kcl IV 1,000 mls .Q10H ADALGISA Administration Lisinopril 40 mg 12/04/19 09:00 12/04/19 10:08 Zestril PO 40 mg DAILY ADALGISA Administration Minoxidil 2.5 mg 12/03/19 21:00 12/04/19 10:08 Minoxidil PO 2.5 mg BID ADALGISA Administration Sodium Chloride 10 ml 12/01/19 23:09 12/02/19 09:15 Flush - Normal Saline IVF 10 ml PRN PRN Administration Saline Flush Terazosin HCl 1 mg 12/04/19 09:00 12/04/19 10:23 Hytrin PO 1 mg DAILY ADALGISA Administration - Exam General Appearance: NAD, awake alert Eye: PERRL, anicteric sclera ENT: normocephalic atraumatic, no oropharyngeal lesions Neck: supple, symmetric, no JVD, no thyromegaly, no carotid bruit Heart: no gallops, no rubs, normal peripheral pulses, irregular, murmur present Heart - other findings: S1, S2 Respiratory: CTAB, no wheezes, no rales, no ronchi, normal chest expansion Gastrointestinal: soft, non-tender, non-distended, normal bowel sounds, no palpable masses Extremities: no cyanosis, no clubbing Skin: normal turgor Neurological - other findings: aphasia, dysphagia, BUE weakness, hemiparesis Musculoskeletal: generalized weakness Psychiatric: oriented to person Hosp A/P (1) Acute CVA (cerebrovascular accident) Code(s): I63.9 - CEREBRAL INFARCTION, UNSPECIFIED Status: Acute Plan: L MCA territorial involvement with area of hemorrhagic conversion, holding ASA currently (2) Expressive aphasia Code(s): R47.01 - APHASIA Status: Acute Plan: Persistent, SUPERVISOR INCISING for monitoring (3) Acute metabolic encephalopathy Code(s): G93.41 - METABOLIC ENCEPHALOPATHY Status: Acute Plan: Variable, multifactorial, supportive (4) Rhabdomyolysis Code(s): M62.82 - RHABDOMYOLYSIS Status: Acute Qualifiers: Rhabdomyolysis type: non-traumatic Qualified Code(s): M62.82 - Rhabdomyolysis Plan: Improved, continue IVF's, serial CPK (5) Chronic atrial fibrillation Code(s): I48.20 - CHRONIC ATRIAL FIBRILLATION, UNSPECIFIED Status: Chronic Plan: Rate-controlled currently, no anticoagulation due to hemorrhagic area within current L MCA territorial infarct (6) Cardiomyopathy Code(s): I42.9 - CARDIOMYOPATHY, UNSPECIFIED Status: Acute Plan: ? etiology however longstanding A-fib, ? ischemic component, consult Cardiology for any further recommendations, consider Life Vest (7) Febrile Code(s): R50.9 - FEVER, UNSPECIFIED Status: Acute Plan: Supportive, ? neurogenic fever, Empiric Meropenem currently (8) HTN (hypertension) Code(s): I10 - ESSENTIAL (PRIMARY) HYPERTENSION Status: Chronic Qualifiers: Hypertension type: essential hypertension Qualified Code(s): I10 - Essential (primary) hypertension - Plan continue antibiotics, PT/OT, protective services social worker, speech therapy, respiratory therapy, DVT proph w/SCDs Continue routine stroke protocol ASA held due to hemorrhagic component of CVA Hold statins x 48h given rhabdomyolysis Consult Cardiology regarding cardiomyopathy SUPERVISOR INCISING/PT/OT Consider risks of anticoagulation termite control technician, hold any anticoagulation currently Continue IVF's Continue Keppra 500mg BID CM for dispo planning AM lab: BMP, CBC, CPK
[2019-12-04] MEDS ORDERED: Spironolactone 25 MG TAB PO SCH (15:30)
--- NOTE | 2019-12-04 15:55 | CON ---
DATE OF CONSULTATION: 12/04/2019 REASON FOR CONSULTATION: Dilated cardiomyopathy. HISTORY OF PRESENT ILLNESS: Mr. Saini is a pleasant 64-year-old white gentleman, who comes to the hospital for altered mentation. He was evaluated and found to have an acute CVA. He has a history of chronic atrial fibrillation for which he was on Coumadin up until a few months ago when he had a stroke and he had hemorrhagic conversion of the stroke, so Coumadin was stopped. He came in altered. He remains altered on my evaluation. He is arousable and breathing on his own. However, he is unable to communicate appropriately. He had an echocardiogram during his admission that showed a reduced EF about 25% to 30%, so Cardiology was consulted for further evaluation and care. PAST MEDICAL HISTORY: 1. Hypertension. 2. Chronic atrial fibrillation. 3. Dementia. 4. BPH. 5. Degenerative joint disease. 6. 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 7. Hemorrhoids. OUTPATIENT MEDICATIONS: 1. Aspirin 81 a day. 2. Colace 100 mg b.i.d. 3. Terazosin. 4. Cymbalta. 5. Lipitor 40 mg at bedtime. 6. Amlodipine 5 mg a day. 7. Keppra 500 mg b.i.d. 8. Lisinopril 40 mg a day. 9. Minoxidil 2.5 mg a day. 10. Omeprazole 20 mg a day. SOCIAL HISTORY: Unobtainable. FAMILY HISTORY: Unobtainable. REVIEW OF SYSTEMS: Unobtainable. ALLERGIES: NO KNOWN DRUG ALLERGIES. PHYSICAL EXAMINATION: VITAL SIGNS: Temperature 99.6 up to 100, pulse 103, respiratory rate 18, saturating 92% on room air, blood pressure 153/89. GENERAL: Somnolent. HEENT: Normocephalic, atraumatic. NECK: Supple. LUNGS: Have referred sounds from his upper airway from the way he is breathing. CARDIOVASCULAR: S1, S2, heart rate in the 90s. ABDOMEN: Soft, positive bowel sounds. EXTREMITIES: No edema. SKIN: Warm and dry. LABORATORY DATA: Laboratory work was reviewed. White count of 10; hemoglobin 15, down to 13.2 now; hematocrit 40; platelet count of 114. Coags were reviewed. Chemistries were reviewed, unremarkable except for a very elevated creatine kinase, which is a lot better now, initially at 2500 and now down to 600. TSH was normal. Triglycerides of 44, cholesterol total of 65, LDL of 35, HDL of 21. UA was unremarkable. Serology: COVID-19 PCR was not detected. Echocardiogram was reviewed, EF at 25% to 30% with enlarged right ventricle, moderate to severe MR and mild to moderate TR. ASSESSMENT: 1. Chronic atrial fibrillation. 2. Acute cerebrovascular accident. 3. History of previous CVA while on Coumadin with hemorrhagic conversion afterwards. 4. Altered mental status currently. 5. New onset dilated cardiomyopathy. PLAN: 1. Not a good candidate at this time to do invasive procedures like heart catheterization to evaluate for ischemia. Also, currently not a good time for him to be evaluated for ischemia with an MPI. We would treat medically for now. 2. Would recommend a LifeVest before discharge if possible with his living arrangements as he is an inmate. 3. We will switch his lisinopril to Entresto and start a beta-jennifer in the form of Coreg 3.125 b.i.d. 4. He will need a 2-day washout of lisinopril, so we will stop it today and he will get his first dose of Entresto on Saturday morning. 5. Continue other medications for blood pressure control. 6. We will add spironolactone to his regimen as well. 7. I think he would be a candidate for a Watchman device. He will need outpatient evaluation with Electrophysiology once he is discharged from this hospital. Thank you for letting us participate in the care of your patient. We will follow. Job ID: [id number]
[2019-12-04] MEDS: Carvedilol 3.125 MG TAB PO SCH (17:01)
[2019-12-05 05:12] LABS: Band 1 % (5-11); Eosinophils 1 % (0-10); Hemoglobin 14.7 g/dL (14.0-18.0); Lymphocytes 15 % (21-51); MDiff Complete? YES; Mean Corpuscular Hemoglobin 31.9 pg (27.0-31.0); Mean Corpuscular Volume 96.6 fL (78.0-98.0); Mean Platelet Volume 8.8 fL (7.4-10.4); Metamyelocyte 1 % (0-0); Monocytes 7 % (0-10); Neutrophil 75 % (42-75); Platelet Count 134 thou/uL (130-400); Platelet Morphology Comment Appears Adequate; RBC Distribution Width 11.5 % (11.5-14.5); RBC Morphology Normal; Red Blood Cell (RBC) Count 4.61 mill/uL (4.70-6.10); White Blood Cell (WBC) Count 9.3 thou/uL (4.8-10.8)
[2019-12-05 05:16] LABS: Anion Gap 11 mmol/L (10-20); BUN (Urea Nitrogen) 14 mg/dL (8.4-25.7); CK (CPK) 207 U/L (30-200); Calc. Creatinine Clearance 131 mL/min (70-130); Calcium 9.4 mg/dL (7.8-10.44); Carbon Dioxide 24 mmol/L (23-31); Chloride 105 mmol/L (98-107); Estimated GFR-MDRD Greater than 90; Glucose 111 mg/dL (80-115); Potassium 4.2 mmol/L (3.5-5.1); Sodium 136 mmol/L (136-145)
--- NOTE | 2019-12-05 07:49 | RAD ---
Radiograph abdomen one view: DATE: 12/05/2019 2:59 AM HISTORY: 64-year-old male with abdominal pain and constipation. COMPARISON: None FINDINGS: Large round noncalcified mass in pelvis, superiorly displacing mildly dilated small bowel loops. Perh aps this represents a severely distended urinary bladder. Air present in multiple dilated small bowel loops. There is gas in nondilated colon. Moderate to large volume of colonic stool throughout. IMPRESSION: 1. Abnormal bowel gas pattern. 2. Large lower abdominal, pelvic mass. Perhaps this represents a very distended urinary bladder. 3. Recommend CT of abdomen and pelvis.
[2019-12-05] MEDS: Amlodipine 5 MG TAB PO SCH (09:20)
[2019-12-05] MEDS: Carvedilol 3.125 MG TAB PO SCH ×2 (09:21→18:14)
[2019-12-05] MEDS: Minoxidil 2.5 MG TAB PO SCH (09:21)
[2019-12-05] MEDS: MEROPENEM 1 GM/50 ML 1 GM in Premix Bag 1 BAG IVPB SCH (09:21)
[2019-12-05] MEDS: Famotidine 20 MG TAB PO SCH (09:35)
[2019-12-05] MEDS: Terazosin HCl 1 MG CAP PO SCH (09:35)
[2019-12-05] MEDS: Famotidine/PF 20 mg/2ml Vial SLOW IVP SCH (09:35)
--- NOTE | 2019-12-05 09:50 | PDOC.HOSPP ---
- Subjective Encounter Date: 12/05/19 Encounter Time: 09:00 Subjective: Patient seen and examined for Acute CVA. No new focal deficits. Mentation slowly improving. No new complaints. No overnight events - Objective Vital Signs & Weight: Vital Signs (12 hours) Temp Pulse Resp BP BP BP Pulse Ox 12/05/19 09:20 100 12/05/19 07:22 99.5 F 100 20 153/96 H 93 L 12/05/19 03:16 99.2 F 87 18 150/93 H 96 12/04/19 23:40 98.0 F 97 22 H 129/82 93 L Weight Admit Weight 200 lb Weight 201 lb 6.4 oz I&O: 12/04/19 12/05/19 12/06/19 06:59 06:59 06:59 Intake Total 118 817 Balance 118 817 Result Diagrams: 12/05/19 04:37 12/05/19 04:37 EKG Reviewed by me: Yes (Tele Afib) Hospitalist ROS - Review of Systems ROS unobtainable: due to mental status - Medication Medications: Active Medications Generic Name Dose Route Start Last Admin Trade Name Freq PRN Reason Stop Dose Admin Amlodipine Besylate 5 mg 12/04/19 09:00 12/05/19 09:20 Norvasc PO 5 mg DAILY ADALGISA Administration Atorvastatin Calcium 10 mg 12/02/19 21:00 12/02/19 21:26 Lipitor PO 10 mg HS ADALGISA Administration Carvedilol 3.125 mg 12/04/19 17:00 12/05/19 09:21 Coreg PO 3.125 mg BID-WM ADALGISA Administration Famotidine 20 mg 12/02/19 09:00 12/05/19 09:35 Pepcid PO 20 mg BID ADALGISA Administration Meropenem 1 gm/ Device 50 mls @ 100 mls/hr 12/01/19 23:59 12/05/19 09:21 IVPB 50 mls 0800,1600,2359 ADALGISA Administration Levetiracetam 500 mg/ Device 100 mls @ 200 mls/hr 12/02/19 09:00 12/04/19 20: 36 IVPB 100 mls BID ADALGISA Administration Potassium Chloride/Dextrose/Sod Cl 1,000 mls @ 50 mls/hr 12/04/19 12:04 12/03 12:14 D5 1/2 Ns W/20 Meq Kcl IV 1,000 mls .Q20H ADALGISA Administration Minoxidil 2.5 mg 12/03/19 21:00 12/05/19 09:21 Minoxidil PO 2.5 mg BID ADALGISA Administration Sodium Chloride 10 ml 12/01/19 23:09 12/04/19 20:39 Flush - Normal Saline IVF 10 ml PRN PRN Administration Saline Flush Terazosin HCl 1 mg 12/04/19 09:00 12/05/19 09:35 Hytrin PO 1 mg DAILY ADALGISA Administration - Exam General Appearance: NAD Heart: RRR, no gallops Respiratory: no wheezes, no rales Gastrointestinal: soft, non-tender, no guarding, no rigidity Extremities: no cyanosis Neurological: no new deficit Hosp A/P - Plan DVT proph w/SCDs Acute CVA Toxic Metabolic Encephalopathy due to CVA Chronic systolic HF EF 25-30% Chr Afib - not a anticoag candidate Rhabdomyolytis HTN Chronic Hep C BPH Dementia Abnormal KUB Constipation PLAN: DC Meropenem CT Abd with IV contrast - proba unable to tolerate PO contrast due to swallow dysfunction Not on ASA due to hemorrhagic conversion Cont Coreg Start Entresto in AM Cont other meds as above AM labs Lifevest before dc
[2019-12-05] MEDS ORDERED: Iopamidol-370 76% 500 ML 1 ML ONE (10:08)
[2019-12-05] MEDS ORDERED: levETIRAcetam 500 mg/5 ml Oral Solution PO SCH (10:45)
--- NOTE | 2019-12-05 13:40 | CT ---
CT ABDOMEN WITH CONTRAST CT PELVIS WITH CONTRAST: DATE: 12/05/2019 HISTORY: 64-year-old male with abdominal pain and constipation. COMPARISON: None TECHNIQUE: IV injection of iodinated contrast media: administered. Oral contrast media:Administered FINDINGS: Urinary bladder is severely distended, reaching slightly superior to the level of the umbilicus, negrita uring approximately 20.5 x 13 x 14 cm. It has normal, thin reilly. There is moderate retroperitoneal fat stranding, especially in the bilateral perirenal spaces, and along the bilateral paracolic gutter s. There is no organized focal fluid collection. The rectum is distended to dimensions of 7 x 6.5 cm by large volume of stool. No mural thickening. Mild perirectal fat stranding may or may not repres ent the same process as in the retroperitoneum. Mild bilateral hydronephrosis is probably due to the severely distended urinary bladder. 2.5 cm cortical cyst exophytically protruding from posterior left renal midpole cortical surface. No convincing evidence of renal parenchymal perfusion defects. No abdominal aortic aneurysm. No small bowel dilation. No pneumoperitoneum or pleural effusion. No ma vinayak pathology identified involving pancreas, liver, spleen, or adrenals. No colonic diverticulitis. Normal appendix. IMPRESSION: 1. Severely distended urinary bladder. 2. Mild bilateral hydronephrosis, due to the severely distended urinary bladder. 3. Retroperitoneal fat stranding consistent with edema, especially in the bilateral perirenal spaces and bilateral paracolic gutters. Cause uncertain. 4. Constipation, including large volume of stool distending the rectum.
[2019-12-05] MEDS: D5 1/2 NS w/20 mEq KCL 1,000 ML IV SCH (13:56)
[2019-12-05] MEDS ORDERED: Fleet Enema 133 ML BOT PR SCH (14:15)
[2019-12-05 16:44] LABS: Bacteria/HPF None Seen HPF (None Seen); Bilirubin Negative (Negative); Blood, Urine Negative (Negative); Clarity Clear (Clear); Glucose, Urine (Dipstick) Normal (Negative); Leukocyte Negative Leu/uL (Negative); Nitrite Negative (Negative); Protein, Urine (Dipstick) 30 mg/dL (Neg-Trace); Squamous Epithelial None Seen HPF (0-3); Urobilinogen 3 mg/dL (Less than 2); WBC/HPF 0-3 HPF (0-3)
[2019-12-05 16:45] LABS: Urine Culture Reflex No No
--- NOTE | 2019-12-05 17:12 | PDOC.CPN ---
- Subjective Date: 12/05/19 Time: 17:10 Interval history: Remains non verbal. - Review of Systems ROS unobtainable: due to mental status - Objective Allergies/Adverse Reactions: Allergies Allergy/AdvReac Type Severity Reaction Status Date / Time No Known Allergies Allergy Verified 12/01/19 23:11 Visit Medications: Current Medications Albuterol/Ipratropium (Duoneb) 3 ml NEB [id number] ADALGISA Albuterol/Ipratropium (Duoneb) 3 ml NEB [id number] PRN PRN Reason: SOB &/or Wheezing Amlodipine Besylate (Norvasc) 5 mg PO DAILY [facility] Last Admin: 12/05/19 09:20 Dose: 5 mg Atorvastatin Calcium (Lipitor) 10 mg PO [facility] Last Admin: 12/02/19 21:26 Dose: 10 mg Carvedilol (Coreg) 3.125 mg PO BID-[facility] Last Admin: 12/05/19 09:21 Dose: 3.125 mg Famotidine (Pepcid) 20 mg PO BID [facility] Last Admin: 12/05/19 09:35 Dose: 20 mg Hydralazine HCl (Apresoline) 10 mg SLOW IVP Q4H PRN PRN Reason: BP > 220/110 Potassium Chloride/Dextrose/Sod Cl (D5 1/2 Ns W/20 Meq Kcl) 1,000 mls @ 50 mls/ hr IV .Q20H [facility] Last Admin: 12/05/19 13:56 Dose: 1,000 mls Labetalol HCl (Normodyne) 10 mg SLOW IVP Q4H PRN PRN Reason: Systolic BP > 180 Levetiracetam (Keppra Oral Solution) 500 mg PO BID [facility] Minoxidil (Minoxidil) 2.5 mg PO BID [facility] Last Admin: 12/05/19 09:21 Dose: 2.5 mg Miscellaneous Medication (Pharmacy To Dose) 1 each IVPB PRN PRN PRN Reason: Pharmacy to dose Ondansetron HCl (Zofran Odt) 4 mg PO Q6H PRN PRN Reason: Nausea/Vomiting Ondansetron HCl (Zofran) 4 mg IVP Q6H PRN PRN Reason: Nausea/Vomiting Polyethylene Glycol (Miralax) 17 gm PO [facility] Sacubitril/Valsartan (Entresto 49 Mg-51 Mg Tablet) 1 tab PO BID ADALGISA Senna/Docusate Sodium (Senokot S) 2 tab PO BID ADALGISA Sodium Biphosphate/Sodium Phosphate (Fleet Enema) 133 ml DC NOW ADALGISA Stop: 12/05/19 18:00 Last Admin: 12/05/19 16:38 Dose: 133 ml Sodium Chloride (Flush - Normal Saline) 10 ml IVF PRN PRN PRN Reason: Saline Flush Last Admin: 12/04/19 20:39 Dose: 10 ml Terazosin HCl (Hytrin) 1 mg PO DAILY [facility] Last Admin: 12/05/19 09:35 Dose: 1 mg Vital Signs & Weight: Vital Signs Temp Pulse Pulse Resp BP BP BP 12/05/19 16:14 98.7 F 98 20 118/74 12/05/19 11:08 98.6 F 108 H 107 H 20 150/77 H 150/77 H 12/05/19 09:20 100 12/05/19 07:22 99.5 F 100 20 153/96 H Pulse Ox 12/05/19 16:14 93 L 12/05/19 11:08 94 L 12/05/19 09:20 12/05/19 07:22 93 L Admit Weight 200 lb Weight 201 lb 6.4 oz - Physical Exam General: no apparent distress HEENT: normocephaly Neck: supple neck Cardiac: irregularly regular Lungs: bibasilar rales Neuro: other (Non verbal from stroke .) Abdomen: active bowel sounds Extremities: 1+ LE edema Skin: clear Musculoskeletal: normal range of motion - Labs Result Diagrams: 12/05/19 04:37 12/05/19 04:37 Troponin/CKMB CK-MB (CK-2) 13.1 ng/mL (0-6.6) H* 12/01/19 17:30 Troponin I 0.041 ng/mL (< 0.028) H 12/02/19 05:09 - Telemetry Supraventricular conduction: atrial fibrillation - Assessment/Plan Assessment/Plan: 1. New onset Dilated CM 2. Acute/Subacute CVA 3. Chronic atrial fibrilation 4. Hx of previous CVA with hemorrhagic conversion. PLAN: - Seems volume up today. - IV lasix - Lifevest before discharge if possible. - Continue Bb and ENtresto once ACEi wash out period done.
[2019-12-05] MEDS ORDERED: Furosemide 40 MG/4 ML VIAL SLOW IVP SCH (17:15)
--- NOTE | 2019-12-05 19:55 | CT ---
CT BRAIN NONCONTRAST: DATE: 12/05/19 at 7:23 p.m. HISTORY: 64-year-old male with altered mental status. COMPARISON: MRI of 12/02/[address] of 12/01/19. FINDINGS: Again demonstrated is the moderately large region of left lateral frontal lobe cytotoxic edema with l ocal effacement of sulcal markings as described in detail on the prior MRI report. At the far inferio r aspect of this acute infarction, a small, approximately1.5 x 1 cm patchy focus of mild to moderate hyperdensity is present, which was not present on the prior CT, but corresponds to the mild focus of hemorrhage on the MRI. In the contralateral right anterior temporal lobe, again noted is the moderately large old infarction . This also involves a significant portion of the right basal ganglia and suprasylvian frontal lobe. No midline shift. No obstructive hydrocephalus. IMPRESSION: 1. Acute/early subacute moderate sized infarction in the left middle cerebral artery territory. 2. Small focus of mild hemorrhagic transformation at the inferior aspect of this infarction. Thi s is the only interval change compared to the CT of 12/01/19. 3. Moderately large old infarction in the contralateral right middle cerebral artery territory. 1. POS: JIN
[2019-12-05] MEDS ORDERED: Polyethylene Glycol 3350 17 GM Packet PO SCH (21:00)
[2019-12-06] MEDS: Famotidine 20 MG TAB PO SCH ×3 (01:33→20:17)
[2019-12-06] MEDS: levETIRAcetam 500 mg/5 ml Oral Solution PO SCH ×3 (01:33→20:17)
[2019-12-06] MEDS: Atorvastatin Calcium 10 MG TAB PO SCH ×2 (01:33→20:17)
[2019-12-06] MEDS: Minoxidil 2.5 MG TAB PO SCH ×2 (01:34→08:45)
[2019-12-06] MEDS: Senokot S 8.6-50 MG TAB PO SCH ×3 (01:34→20:17)
[2019-12-06 05:19] LABS: #Basophils 0.1 thou/uL (0.0-0.2); #Eosinphils 0.2 thou/uL (0.0-0.7); #Lymphocytes 1.6 thou/uL (1.20-3.40); #Monocytes 1.1 thou/uL (0.11-0.59); #Neutrophils 6.6 thou/uL (1.40-6.50); %Basophils 0.7 % (0.0-1.0); %Eosinophils 2.1 % (0.0-10.0); %Lymphocytes 17.2 % (21.0-51.0); Hemoglobin 14.6 g/dL (14.0-18.0); Mean Corpuscular HGB CONC 32.4 g/dL (32.0-36.0); Mean Corpuscular Hemoglobin 31.8 pg (27.0-31.0); Mean Corpuscular Volume 98.2 fL (78.0-98.0); Mean Platelet Volume 9.1 fL (7.4-10.4); Platelet Count 126 thou/uL (130-400); RBC Distribution Width 11.6 % (11.5-14.5); Red Blood Cell (RBC) Count 4.59 mill/uL (4.70-6.10); White Blood Cell (WBC) Count 9.6 thou/uL (4.8-10.8)
[2019-12-06 05:40] LABS: ALT (SGPT) 16 U/L (8-55); AST (SGOT) 25 U/L (5-34); Albumin 3.3 g/dL (3.4-4.8); Alkaline Phosphatase 80 U/L (40-110); Anion Gap 13 mmol/L (10-20); BUN (Urea Nitrogen) 20 mg/dL (8.4-25.7); Bilirubin, Total 1.2 mg/dL (0.2-1.2); Calc. Creatinine Clearance 123 mL/min (70-130); Calcium 9.1 mg/dL (7.8-10.44); Carbon Dioxide 24 mmol/L (23-31); Chloride 105 mmol/L (98-107); Estimated GFR-MDRD Greater than 90; Globulin 3.5 g/dL (2.4-3.5); Glucose 100 mg/dL (80-115); Potassium 4.2 mmol/L (3.5-5.1); Protein, Total 6.8 g/dL (5.8-8.1); Sodium 138 mmol/L (136-145)
[2019-12-06] MEDS: Amlodipine 5 MG TAB PO SCH (08:45)
[2019-12-06] MEDS: Sacubitril 49 MG/Valsartan 51 MG TABLET PO SCH (08:45)
[2019-12-06] MEDS: Carvedilol 3.125 MG TAB PO SCH ×2 (08:45→15:56)
[2019-12-06] MEDS: Terazosin HCl 1 MG CAP PO SCH (08:45)
--- NOTE | 2019-12-06 09:38 | PDOC.HOSPP ---
- Subjective Encounter Date: 12/06/19 Encounter Time: 08:30 non-verbal Subjective: Patient seen and examined for acute CVA. Events noted. Guillen placed yesterday. Poor appetite - Objective Vital Signs & Weight: Vital Signs (12 hours) Temp Pulse Resp BP BP Pulse Ox 12/06/19 07:58 80 20 91 L 12/06/19 07:40 98.5 F 88 16 159/97 H 92 L 12/06/19 03:20 98.7 F 88 17 137/86 92 L 12/06/19 00:35 18 95 12/05/19 23:30 99.1 F Weight Admit Weight 200 lb Weight 197 lb 12.8 oz I&O: 12/05/19 12/06/19 12/07/19 06:59 06:59 06:59 Intake Total 817 776 Output Total 4325 Balance 817 -4927 Result Diagrams: 12/06/19 04:59 12/06/19 04:59 Radiology Reviewed by me: Yes (CT abd - bladder distention) EKG Reviewed by me: Yes (Tele Afib) Hospitalist ROS - Review of Systems ROS unobtainable: due to mental status - Medication Medications: Active Medications Generic Name Dose Route Start Last Admin Trade Name Freq PRN Reason Stop Dose Admin Albuterol/Ipratropium 3 ml 12/05/19 19:00 12/06/19 07:58 Duoneb NEB 3 ml [id number] ADALGISA Administration Amlodipine Besylate 5 mg 12/04/19 09:00 12/06/19 08:45 Norvasc PO 5 mg DAILY ADALGISA Administration Atorvastatin Calcium 10 mg 12/02/19 21:00 12/06/19 01:33 Lipitor PO Not Given HS ADALGISA Carvedilol 3.125 mg 12/04/19 17:00 12/06/19 08:45 Coreg PO 3.125 mg BID-[facility] ADALGISA Administration Famotidine 20 mg 12/02/19 09:00 12/06/19 08:45 Pepcid PO 20 mg BID ADALGISA Administration Levetiracetam 500 mg 12/05/19 21:00 12/06/19 08:46 Keppra Oral Solution PO 500 mg BID ADALGISA Administration Minoxidil 2.5 mg 12/03/19 21:00 12/06/19 08:45 Minoxidil PO 2.5 mg BID ADALGISA Administration Polyethylene Glycol 17 gm 12/05/19 21:00 12/06/19 01:34 Miralax PO Not Given HS ADALGISA Sacubitril/Valsartan 1 tab 12/06/19 09:00 12/06/19 08:45 Entresto 49 Mg-51 Mg Tablet PO 1 tab BID ADALGISA Administration Senna/Docusate Sodium 2 tab 12/05/19 21:00 12/06/19 08:45 Senokot S PO 2 tab BID ADALGISA Administration Sodium Chloride 10 ml 12/01/19 23:09 12/04/19 20:39 Flush - Normal Saline IVF 10 ml PRN PRN Administration Saline Flush Terazosin HCl 1 mg 12/04/19 09:00 12/06/19 08:45 Hytrin PO 1 mg DAILY ADALGISA Administration - Exam General Appearance: NAD Heart: RRR, no gallops Respiratory: no wheezes, no rales Gastrointestinal: non-tender, no guarding, no rigidity Neurological: no new deficit Hosp A/P - Plan DVT proph w/SCDs Acute CVA with hemorrhagic conversion Toxic Metabolic Encephalopathy due to CVA Chronic systolic HF EF 25-30% Chr Afib - not a anticoag candidate Rhabdomyolysis Obstructiver uropathy/Urinary retention - guillen placed 5/2 - >2 lit in bladder Seizure disorder HTN Chronic Hep C BPH Dementia Constipation PLAN: Not on ASA due to hemorrhagic conversion Cont Coreg/Entresto Gentle IV hydration due to very poor PO intake Consult Palliative care Cont other meds as above Lifevest before dc AM labs
[2019-12-06] MEDS: D5 1/2 NS w/20 mEq KCL 1,000 ML IV SCH (11:19)
--- NOTE | 2019-12-06 14:12 | PDOC.CPN ---
- Subjective Date: 12/06/19 Time: 14:11 Interval history: Able to talk better today but has difficulty still. No angina. no SOB. - Review of Systems ROS unobtainable: due to mental status - Objective Allergies/Adverse Reactions: Allergies Allergy/AdvReac Type Severity Reaction Status Date / Time No Known Allergies Allergy Verified 12/01/19 23:11 Visit Medications: Current Medications Albuterol/Ipratropium (Duoneb) 3 ml NEB [id number] [facility] Last Admin: 12/06/19 12:51 Dose: 3 ml Albuterol/Ipratropium (Duoneb) 3 ml NEB [id number] PRN PRN Reason: SOB &/or Wheezing Amlodipine Besylate (Norvasc) 5 mg PO DAILY [facility] Last Admin: 12/06/19 08:45 Dose: 5 mg Atorvastatin Calcium (Lipitor) 10 mg PO [facility] Last Admin: 12/06/19 01:33 Dose: Not Given Carvedilol (Coreg) 3.125 mg PO BID[facility] Last Admin: 12/06/19 08:45 Dose: 3.125 mg Famotidine (Pepcid) 20 mg PO BID [facility] Last Admin: 12/06/19 08:45 Dose: 20 mg Hydralazine HCl (Apresoline) 10 mg SLOW IVP Q4H PRN PRN Reason: BP > 220/110 Potassium Chloride/Dextrose/Sod Cl (D5 1/2 Ns W/20 Meq Kcl) 1,000 mls @ 50 mls/ hr IV .Q20H [facility] Last Admin: 12/06/19 11:19 Dose: 1,000 mls Levetiracetam 500 mg/ Device 100 mls @ 200 mls/hr IVPB BID [facility] Labetalol HCl (Normodyne) 10 mg SLOW IVP Q4H PRN PRN Reason: Systolic BP > 180 Levetiracetam (Keppra Oral Solution) 500 mg PO BID [facility] Last Admin: 12/06/19 08:46 Dose: 500 mg Minoxidil (Minoxidil) 2.5 mg PO BID [facility] Last Admin: 12/06/19 08:45 Dose: 2.5 mg Miscellaneous Medication (Pharmacy To Dose) 1 each IVPB PRN PRN PRN Reason: Pharmacy to dose Ondansetron HCl (Zofran Odt) 4 mg PO Q6H PRN PRN Reason: Nausea/Vomiting Ondansetron HCl (Zofran) 4 mg IVP Q6H PRN PRN Reason: Nausea/Vomiting Polyethylene Glycol (Miralax) 17 gm PO BID [facility] Sacubitril/Valsartan (Entresto 49 Mg-51 Mg Tablet) 1 tab PO BID [facility] Last Admin: 12/06/19 08:45 Dose: 1 tab Senna/Docusate Sodium (Senokot S) 2 tab PO BID [facility] Last Admin: 12/06/19 08:45 Dose: 2 tab Sodium Chloride (Flush - Normal Saline) 10 ml IVF PRN PRN PRN Reason: Saline Flush Last Admin: 12/04/19 20:39 Dose: 10 ml Terazosin HCl (Hytrin) 1 mg PO DAILY [facility] Last Admin: 12/06/19 08:45 Dose: 1 mg Vital Signs & Weight: Vital Signs Temp Pulse Resp BP BP Pulse Ox 12/06/19 12:51 106 H 20 90 L 12/06/19 11:26 98.9 F 99 16 118/80 93 L 12/06/19 08:30 92 L 12/06/19 07:58 80 20 91 L 12/06/19 07:40 98.5 F 88 16 159/97 H 92 L 12/06/19 03:20 98.7 F 88 17 137/86 92 L Admit Weight 200 lb Weight 197 lb 12.8 oz - Physical Exam General: no apparent distress HEENT: mucus membranes moist Neck: supple neck Cardiac: irregularly regular Lungs: normal breath sounds Neuro: weakness Abdomen: active bowel sounds Extremities: 1+ LE edema Skin: clear Musculoskeletal: no pain - Labs Result Diagrams: 12/06/19 04:59 12/06/19 04:59 Troponin/CKMB CK-MB (CK-2) 13.1 ng/mL (0-6.6) H* 12/01/19 17:30 Troponin I 0.041 ng/mL (< 0.028) H 12/02/19 05:09 - Telemetry Supraventricular conduction: atrial fibrillation - Assessment/Plan Assessment/Plan: 1. New onset Dilated CM 2. Acute/Subacute CVA 3. Chronic atrial fibrilation 4. Hx of previous CVA with hemorrhagic conversion. PLAN: - Seems volume up still - Continue IV lasix - Lifevest before discharge if possible. - Continue BB and Entresto. - Will need outpatient evaluatoin for possible wathchman device. This will likely happen at [facility] as he is an inmate.
[2019-12-06] MEDS: Polyethylene Glycol 3350 17 GM Packet PO SCH (20:17)
[2019-12-07] MEDS: Sacubitril 49 MG/Valsartan 51 MG TABLET PO SCH ×3 (01:39→20:29)
[2019-12-07 05:21] LABS: #Basophils 0.1 thou/uL (0.0-0.2); #Eosinphils 0.2 thou/uL (0.0-0.7); #Lymphocytes 1.8 thou/uL (1.20-3.40); #Monocytes 0.8 thou/uL (0.11-0.59); #Neutrophils 5.4 thou/uL (1.40-6.50); %Basophils 0.6 % (0.0-1.0); %Eosinophils 2.5 % (0.0-10.0); %Lymphocytes 21.6 % (21.0-51.0); %Neutrophils 65.3 % (42.0-75.0); Hemoglobin 14.5 g/dL (14.0-18.0); Mean Corpuscular HGB CONC 32.2 g/dL (32.0-36.0); Mean Corpuscular Hemoglobin 31.3 pg (27.0-31.0); Mean Corpuscular Volume 97.2 fL (78.0-98.0); Mean Platelet Volume 9.9 fL (7.4-10.4); Platelet Count 143 thou/uL (130-400); RBC Distribution Width 11.7 % (11.5-14.5); Red Blood Cell (RBC) Count 4.64 mill/uL (4.70-6.10); White Blood Cell (WBC) Count 8.2 thou/uL (4.8-10.8)
[2019-12-07 05:56] LABS: Anion Gap 13 mmol/L (10-20); BUN (Urea Nitrogen) 27 mg/dL (8.4-25.7); Calc. Creatinine Clearance 128 mL/min (70-130); Calcium 8.8 mg/dL (7.8-10.44); Carbon Dioxide 23 mmol/L (23-31); Chloride 107 mmol/L (98-107); Estimated GFR-MDRD Greater than 90; Glucose 101 mg/dL (80-115); Sodium 139 mmol/L (136-145)
[2019-12-07] MEDS: D5 1/2 NS w/20 mEq KCL 1,000 ML IV SCH (06:59)
[2019-12-07] MEDS: Terazosin HCl 1 MG CAP PO SCH (09:12)
[2019-12-07] MEDS: Senokot S 8.6-50 MG TAB PO SCH ×2 (09:12→20:28)
[2019-12-07] MEDS: levETIRAcetam 500 mg/5 ml Oral Solution PO SCH ×2 (09:12→20:29)
[2019-12-07] MEDS: Carvedilol 3.125 MG TAB PO SCH ×2 (09:12→17:20)
[2019-12-07] MEDS: Famotidine 20 MG TAB PO SCH ×2 (09:12→20:29)
[2019-12-07] MEDS: Polyethylene Glycol 3350 17 GM Packet PO SCH ×2 (09:13→20:29)
--- NOTE | 2019-12-07 09:48 | PDOC.PALCO ---
Palliative Care Consult - Consult Details Requesting Physician: Dr Branch Reason for Consult: goals of care - Pertinent HPI 64 year old male who is an inmate at a correctional facility. He has residual left sided weakness secondary to past CVA. He was found to have sudden onset of alteration in mental status 12/01/2019 with hypertension, airlifted to [facility] emergency room for further evaluation. Low grade temp in emergency room with tachycardia and hypertension. CT revealed acute/subacute infarct to left frontal lobe. Dysphagia in emergency room. Admitted for further evaluation and medical management. Mr Saini has had a slow improvement in mentation and swallowing over the weekend. - Pertinent PMH Hypertension, Chronic atrial Fib, Chronic Hep C, Mild Dementia, - Social History Smoking Status: Unknown if ever smoked Alcohol Use: pt denies any use Drug Use History: none Living Situation: other ([facility]) - Medications MAR Reviewed: Yes - Allergies Allergies/Adverse Reactions: Allergies Allergy/AdvReac Type Severity Reaction Status Date / Time No Known Allergies Allergy Verified 12/01/19 23:11 - Subjective Awake, alert. Flat affect. Able to answer questions appropriately but with delayed response. Guards at bedside, able to take oral medications this morning , crushed with apple sauce. - ROS Constitutional: alert, weakness Eyes: other (Denied visual changes) ENT: difficulty swallowing, other (Denies throat pain/irritation) Respiratory: other (Denies shortness of breath) Cardiology: other (Denies chest pain) Gastrointestinal: constipation Musculoskeletal: limited mobility, other (Denies pain) Neurological: other (Denies numbness or headache) Skin: other (Denies rash, puritis) - Objective Vital Signs: Vital Signs - Most Recent Temp Pulse Resp BP Pulse Ox 97.7 F 90 14 139/79 94 L 12/07/19 07:18 12/07/19 08:22 12/07/19 08:22 12/07/19 07:18 12/07/19 07:18 Palliative Performance Scale: 30 - Physical Exam Constitutional: NAD HEENT: EOMI, moist MMs, sclera anicteric Respiratory: no wheezing, unlabored breathing Cardiovascular: irregular Gastrointestinal: soft, non-tender, positive bowel sounds Genitourinary: guillen catheter Musculoskeletal: no cyanosis, no clubbing Deviation from normal: Unable to follow request to portable trackman hands Skin: cap refill <2 seconds, no lesions, no rash Psychiatric: flat affect Deviation from normal: Oriented to self, place - Problem List (1) Palliative care encounter Code(s): Z51.5 - ENCOUNTER FOR PALLIATIVE CARE Current Visit: Yes Status: Acute (2) Physical deconditioning Code(s): R53.81 - OTHER MALAISE Current Visit: Yes Status: Acute (3) Acute CVA (cerebrovascular accident) Code(s): I63.9 - CEREBRAL INFARCTION, UNSPECIFIED Current Visit: Yes Status : Acute (4) Chronic atrial fibrillation Code(s): I48.20 - CHRONIC ATRIAL FIBRILLATION, UNSPECIFIED Current Visit: Yes Status: Chronic - Plan/Recommendations Plan: Reviewed documentation and assessed patient. Intermittently makes eye contact. Answers are appropriate, but delayed. In discussing resuscitation status he confirmed he wishes for all aggressive measures to occur. Complains of mild constipation. Will review medications. *Called and left message at correctional facility to discuss with [facility] patient MPOA if decision maker was needed. *Consider adding WA suppository for constipation, Miralax was ordered yesterday and given x2 along with Docusate *Aggressive measures *Attempt to revisit to discuss advance directives if decline or recurrent CVA occurs. [50] minutes spent on this encounter with >50% of the time in counseling and coordination of care. Thank you for this very appropriate consult.
--- NOTE | 2019-12-07 11:15 | PDOC.HOSPP ---
- Subjective Encounter Date: 12/07/19 Subjective: Patient alert to himself only. - Objective Vital Signs & Weight: Vital Signs (12 hours) Temp Pulse Resp BP Pulse Ox 12/07/19 08:22 90 14 12/07/19 07:18 97.7 F 77 20 139/79 94 L 12/07/19 03:21 99.6 F 87 16 112/75 93 L 12/07/19 01:03 95 16 90 L Weight Admit Weight 200 lb Weight 197 lb 12.8 oz I&O: 12/06/19 12/07/19 12/08/19 06:59 06:59 06:59 Intake Total 776 1223 Output Total 4325 1100 Balance -3549 123 Result Diagrams: 12/07/19 04:48 12/07/19 04:48 Radiology Reviewed by me: Yes EKG Reviewed by me: Yes Hospitalist ROS - Review of Systems Constitutional: denies: fever, chills, sweats, weakness, malaise, other Eyes: denies: pain, vision change, conjunctivae inflammation, eyelid inflammation, redness, other ENT: denies: ear pain, ear discharge, nose pain, nose discharge, nose congestion , mouth pain, mouth swelling, throat pain, throat swelling, other Respiratory: denies: cough, dry, shortness of breath, hemoptysis, SOB with excertion, pleuritic pain, sputum, wheezing, other Cardiovascular: denies: chest pain, palpitations, orthopnea, paroxysmal noc. dyspnea, edema, light headedness, other Gastrointestinal: denies: nausea, vomiting, abdominal pain, diarrhea, constipation, melena, hematochezia, other Musculoskeletal: denies: neck pain, shoulder pain, arm pain, back pain, hand pain, leg pain, foot pain, other Neurological: reports: weakness, numbness, incoordination, change in speech, confusion - Medication Medications: Active Medications Generic Name Dose Route Start Last Admin Trade Name Freq PRN Reason Stop Dose Admin Albuterol/Ipratropium 3 ml 12/05/19 19:00 12/07/19 08:22 Duoneb NEB 3 ml [id number] ADALGISA Administration Amlodipine Besylate 5 mg 12/04/19 09:00 12/06/19 08:45 Norvasc PO 5 mg DAILY ADALGISA Administration Atorvastatin Calcium 10 mg 12/02/19 21:00 12/06/19 20:17 Lipitor PO 10 mg HS ADALGISA Administration Carvedilol 3.125 mg 12/04/19 17:00 12/07/19 09:12 Coreg PO 3.125 mg BID-WM ADALGISA Administration Famotidine 20 mg 12/02/19 09:00 12/07/19 09:12 Pepcid PO 20 mg BID ADALGISA Administration Potassium Chloride/Dextrose/Sod Cl 1,000 mls @ 50 mls/hr 12/06/19 09:45 12/06 06:59 D5 1/2 Ns W/20 Meq Kcl IV 1,000 mls .Q20H ADALGISA Administration Levetiracetam 500 mg/ Device 100 mls @ 200 mls/hr 12/06/19 21:00 12/07/19 07: 06 IVPB Not Given BID ADALGISA Levetiracetam 500 mg 12/05/19 21:00 12/07/19 09:12 Keppra Oral Solution PO 500 mg BID ADALGISA Administration Minoxidil 2.5 mg 12/03/19 21:00 12/06/19 08:45 Minoxidil PO 2.5 mg BID ADALGISA Administration Polyethylene Glycol 17 gm 12/06/19 21:00 12/07/19 09:13 Miralax PO 17 gm BID ADALGISA Administration Sacubitril/Valsartan 1 tab 12/06/19 09:00 12/07/19 09:12 Entresto 49 Mg-51 Mg Tablet PO 1 tab BID ADALGISA Administration Senna/Docusate Sodium 2 tab 12/05/19 21:00 12/07/19 09:12 Senokot S PO 2 tab BID ADALGISA Administration Sodium Chloride 10 ml 12/01/19 23:09 12/06/19 20:18 Flush - Normal Saline IVF 10 ml PRN PRN Administration Saline Flush Terazosin HCl 1 mg 12/04/19 09:00 12/07/19 09:12 Hytrin PO 1 mg DAILY ADALGISA Administration - Exam General Appearance: awake alert, ill appearing Eye: PERRL, anicteric sclera ENT: normocephalic atraumatic, no oropharyngeal lesions, moist mucosa Neck: supple Heart: RRR Respiratory: CTAB Gastrointestinal: soft Extremities: no cyanosis Skin: normal turgor Neurological: facial droop, hemiplegia, speech deficit Neurological - other findings: left facial droop, weakness left > right, toes equivocal Musculoskeletal - other findings: Increased tone Psychiatric: normal affect, oriented to person Hosp A/P (1) Acute CVA (cerebrovascular accident) Code(s): I63.9 - CEREBRAL INFARCTION, UNSPECIFIED Status: Acute (2) Acute metabolic encephalopathy Code(s): G93.41 - METABOLIC ENCEPHALOPATHY Status: Acute (3) Expressive aphasia Code(s): R47.01 - APHASIA Status: Acute (4) Febrile Code(s): R50.9 - FEVER, UNSPECIFIED Status: Acute (5) Rhabdomyolysis Code(s): M62.82 - RHABDOMYOLYSIS Status: Acute Qualifiers: Rhabdomyolysis type: non-traumatic Qualified Code(s): M62.82 - Rhabdomyolysis (6) Chronic atrial fibrillation Code(s): I48.20 - CHRONIC ATRIAL FIBRILLATION, UNSPECIFIED Status: Chronic (7) HTN (hypertension) Code(s): I10 - ESSENTIAL (PRIMARY) HYPERTENSION Status: Chronic Qualifiers: Hypertension type: essential hypertension Qualified Code(s): I10 - Essential (primary) hypertension - Plan old records reviewed/req, PT/OT, speech therapy Echocardiography completed which showed severely depressed function. Cardiology on board. Recommended watchman device as outpatient. EEG reviewed which did not show any seizure activity or presence of interictal epileptiform discharges. MRI brain reviewed which showed acute/subacute left frontal infarct. Anticoagulation held at this time due to risk of hemorrhagic consult. Restart statin after rhabdomyolysis resolves. Neurochecks every 4 hours. Continue home medications. Strict control of BP and BG. PT/OT/ Speech on board. Appreciate palliative care input. Continue medical management per primary team.
--- NOTE | 2019-12-07 11:38 | PDOC.HOSPP ---
- Subjective Encounter Date: 12/07/19 Encounter Time: 09:00 Subjective: awake, watching tv, not fully oriented but follows verbal stimuli (needs 2-3 prompts sometimes) is eating 50% of his meals barely stood up with PT no c/o sob or new weakness or chest pain or palp - Objective Vital Signs & Weight: Vital Signs (12 hours) Temp Pulse Resp BP Pulse Ox 12/07/19 08:22 90 14 12/07/19 07:18 97.7 F 77 20 139/79 94 L 12/07/19 03:21 99.6 F 87 16 112/75 93 L 12/07/19 01:03 95 16 90 L Weight Admit Weight 200 lb Weight 197 lb 12.8 oz I&O: 12/06/19 12/07/19 12/08/19 06:59 06:59 06:59 Intake Total 776 1223 Output Total 4325 1100 Balance -3549 123 Result Diagrams: 12/07/19 04:48 12/07/19 04:48 Hospitalist ROS - Medication Medications: Active Medications Generic Name Dose Route Start Last Admin Trade Name Freq PRN Reason Stop Dose Admin Albuterol/Ipratropium 3 ml 12/05/19 19:00 12/07/19 08:22 Duoneb NEB 3 ml [id number] ADALGISA Administration Amlodipine Besylate 5 mg 12/04/19 09:00 12/06/19 08:45 Norvasc PO 5 mg DAILY ADALGISA Administration Atorvastatin Calcium 10 mg 12/02/19 21:00 12/06/19 20:17 Lipitor PO 10 mg HS ADALGISA Administration Carvedilol 3.125 mg 12/04/19 17:00 12/07/19 09:12 Coreg PO 3.125 mg BID-WM ADALGISA Administration Famotidine 20 mg 12/02/19 09:00 12/07/19 09:12 Pepcid PO 20 mg BID ADALGISA Administration Potassium Chloride/Dextrose/Sod Cl 1,000 mls @ 50 mls/hr 12/06/19 09:45 12/06 06:59 D5 1/2 Ns W/20 Meq Kcl IV 1,000 mls .Q20H ADALGISA Administration Levetiracetam 500 mg/ Device 100 mls @ 200 mls/hr 12/06/19 21:00 12/07/19 07: 06 IVPB Not Given BID ADALGISA Levetiracetam 500 mg 12/05/19 21:00 12/07/19 09:12 Keppra Oral Solution PO 500 mg BID ADALGISA Administration Minoxidil 2.5 mg 12/03/19 21:00 12/06/19 08:45 Minoxidil PO 2.5 mg BID ADALGISA Administration Polyethylene Glycol 17 gm 12/06/19 21:00 12/07/19 09:13 Miralax PO 17 gm BID ADALGISA Administration Sacubitril/Valsartan 1 tab 12/06/19 09:00 12/07/19 09:12 Entresto 49 Mg-51 Mg Tablet PO 1 tab BID ADALGISA Administration Senna/Docusate Sodium 2 tab 12/05/19 21:00 12/07/19 09:12 Senokot S PO 2 tab BID ADALGISA Administration Sodium Chloride 10 ml 12/01/19 23:09 12/06/19 20:18 Flush - Normal Saline IVF 10 ml PRN PRN Administration Saline Flush Terazosin HCl 1 mg 12/04/19 09:00 12/07/19 09:12 Hytrin PO 1 mg DAILY ADALGISA Administration - Exam General Appearance: ill appearing Eye: PERRL, anicteric sclera ENT: no oropharyngeal lesions, moist mucosa Neck: supple, no JVD Heart: irregular, murmur present Respiratory: no wheezes, no rales Gastrointestinal: soft, non-tender, non-distended, normal bowel sounds Extremities: no cyanosis, no edema Neurological: hemiplegia, speech deficit Hosp A/P (1) Acute CVA (cerebrovascular accident) Code(s): I63.9 - CEREBRAL INFARCTION, UNSPECIFIED Status: Acute (2) Seizure disorder Code(s): G40.909 - EPILEPSY, UNSP, NOT INTRACTABLE, WITHOUT STATUS EPILEPTICUS Status: Chronic (3) Chronic hepatitis Code(s): K73.9 - CHRONIC HEPATITIS, UNSPECIFIED Status: Chronic (4) BPH (benign prostatic hyperplasia) Code(s): N40.0 - BENIGN PROSTATIC HYPERPLASIA WITHOUT LOWER URINRY TRACT SYMP Status: Acute Qualifiers: Lower urinary tract symptom presence: symptoms present Lower urinary tract symptom detail: urinary retention Qualified Code(s): N40.1 - Benign prostatic hyperplasia with lower urinary tract symptoms; R33.8 - Other retention of urine (5) H/O: CVA (cerebrovascular accident) Code(s): Z86.73 - PRSNL HX OF TIA (TIA), AND CEREB INFRC W/O RESID DEFICITS Status: Chronic (6) Acute metabolic encephalopathy Code(s): G93.41 - METABOLIC ENCEPHALOPATHY Status: Acute (7) Cardiomyopathy Code(s): I42.9 - CARDIOMYOPATHY, UNSPECIFIED Status: Acute Qualifiers: Cardiomyopathy type: unspecified Qualified Code(s): I42.9 - Cardiomyopathy , unspecified (8) Expressive aphasia Code(s): R47.01 - APHASIA Status: Acute (9) Physical deconditioning Code(s): R53.81 - OTHER MALAISE Status: Acute (10) Rhabdomyolysis Code(s): M62.82 - RHABDOMYOLYSIS Status: Resolved Qualifiers: Rhabdomyolysis type: non-traumatic Qualified Code(s): M62.82 - Rhabdomyolysis (11) Chronic atrial fibrillation Code(s): I48.20 - CHRONIC ATRIAL FIBRILLATION, UNSPECIFIED Status: Chronic (12) HTN (hypertension) Code(s): I10 - ESSENTIAL (PRIMARY) HYPERTENSION Status: Chronic Qualifiers: Hypertension type: essential hypertension Qualified Code(s): I10 - Essential (primary) hypertension - Plan has new acute left mca infarct with mild hemorrhagic conversion h/o large right mca infarct with encephalomalacia on MRI rhabdomyolysis is almost resolved afib is rate controlled echo showed ef of 25% with severe mitral regurgitation. continue coreg, low dose lipitor, keppra, entresto, hytrin he will need watchman's device due to cva with hemorrhagic conversion and risk of bleeding for afib life vest if [facility] very severe deconditioning, barely able to stand with therapy, needs infirmary has indwelling guillen, needs outpt urology appointment in 2 weeks hemo/neuorstable
--- NOTE | 2019-12-07 14:31 | PDOC.CPN ---
- Subjective Date: 12/07/19 Time: 14:30 Interval history: No new issues. Remains non verbal. - Review of Systems ROS unobtainable: due to mental status - Objective Allergies/Adverse Reactions: Allergies Allergy/AdvReac Type Severity Reaction Status Date / Time No Known Allergies Allergy Verified 12/01/19 23:11 Visit Medications: Current Medications Albuterol/Ipratropium (Duoneb) 3 ml NEB [id number] [facility] Last Admin: 12/07/19 08:22 Dose: 3 ml Albuterol/Ipratropium (Duoneb) 3 ml NEB [id number] PRN PRN Reason: SOB &/or Wheezing Amlodipine Besylate (Norvasc) 5 mg PO DAILY [facility] Last Admin: 12/06/19 08:45 Dose: 5 mg Atorvastatin Calcium (Lipitor) 10 mg PO HS [facility] Last Admin: 12/06/19 20:17 Dose: 10 mg Carvedilol (Coreg) 3.125 mg PO BID-[facility] Last Admin: 12/07/19 09:12 Dose: 3.125 mg Famotidine (Pepcid) 20 mg PO BID [facility] Last Admin: 12/07/19 09:12 Dose: 20 mg Hydralazine HCl (Apresoline) 10 mg SLOW IVP Q4H PRN PRN Reason: BP > 220/110 Potassium Chloride/Dextrose/Sod Cl (D5 1/2 Ns W/20 Meq Kcl) 1,000 mls @ 50 mls/ hr IV .Q20H [facility] Last Admin: 12/07/19 06:59 Dose: 1,000 mls Levetiracetam 500 mg/ Device 100 mls @ 200 mls/hr IVPB BID [facility] Last Admin: 12/07/19 07:06 Dose: Not Given Labetalol HCl (Normodyne) 10 mg SLOW IVP Q4H PRN PRN Reason: Systolic BP > 180 Levetiracetam (Keppra Oral Solution) 500 mg PO BID [facility] Last Admin: 12/07/19 09:12 Dose: 500 mg Minoxidil (Minoxidil) 2.5 mg PO BID [facility] Last Admin: 12/06/19 08:45 Dose: 2.5 mg Miscellaneous Medication (Pharmacy To Dose) 1 each IVPB PRN PRN PRN Reason: Pharmacy to dose Ondansetron HCl (Zofran Odt) 4 mg PO Q6H PRN PRN Reason: Nausea/Vomiting Ondansetron HCl (Zofran) 4 mg IVP Q6H PRN PRN Reason: Nausea/Vomiting Polyethylene Glycol (Miralax) 17 gm PO BID [facility] Last Admin: 12/07/19 09:13 Dose: 17 gm Sacubitril/Valsartan (Entresto 49 Mg-51 Mg Tablet) 1 tab PO BID [facility] Last Admin: 12/07/19 09:12 Dose: 1 tab Senna/Docusate Sodium (Senokot S) 2 tab PO BID [facility] Last Admin: 12/07/19 09:12 Dose: 2 tab Sodium Chloride (Flush - Normal Saline) 10 ml IVF PRN PRN PRN Reason: Saline Flush Last Admin: 12/06/19 20:18 Dose: 10 ml Terazosin HCl (Hytrin) 1 mg PO DAILY [facility] Last Admin: 12/07/19 09:12 Dose: 1 mg Vital Signs & Weight: Vital Signs Temp Pulse Resp BP Pulse Ox 12/07/19 11:31 99.2 F 89 22 H 111/76 93 L 12/07/19 08:45 94 L 12/07/19 08:22 90 14 12/07/19 07:18 97.7 F 77 20 139/79 94 L 12/07/19 03:21 99.6 F 87 16 112/75 93 L Admit Weight 200 lb Weight 197 lb 12.8 oz - Physical Exam General: no apparent distress HEENT: normocephaly Neck: supple neck Cardiac: irregularly regular Lungs: clear to auscultation Neuro: weakness Abdomen: active bowel sounds Extremities: 1+ LE edema Skin: clear Musculoskeletal: no pain - Labs Result Diagrams: 12/07/19 04:48 12/07/19 04:48 Troponin/CKMB CK-MB (CK-2) 13.1 ng/mL (0-6.6) H* 12/01/19 17:30 Troponin I 0.041 ng/mL (< 0.028) H 12/02/19 05:09 - Telemetry Supraventricular conduction: atrial fibrillation - Assessment/Plan Assessment/Plan: 1. New onset Dilated CM 2. Acute/Subacute CVA 3. Chronic atrial fibrilation 4. Hx of previous CVA with hemorrhagic conversion. PLAN: - Has diuresed well. - Continue IV lasix - Lifevest before discharge, placed order today. - Continue BB and Entresto. - Will need outpatient evaluation for possible wathchman device. This will likely happen at [facility] as he is an inmate.
[2019-12-07] MEDS: Atorvastatin Calcium 10 MG TAB PO SCH (20:29)
[2019-12-08] MEDS: D5 1/2 NS w/20 mEq KCL 1,000 ML IV SCH (02:02)
[2019-12-08 05:33] LABS: #Basophils 0.1 thou/uL (0.0-0.2); #Eosinphils 0.2 thou/uL (0.0-0.7); #Lymphocytes 1.6 thou/uL (1.20-3.40); #Monocytes 0.9 thou/uL (0.11-0.59); #Neutrophils 5.9 thou/uL (1.40-6.50); %Basophils 1.1 % (0.0-1.0); %Eosinophils 2.9 % (0.0-10.0); %Lymphocytes 18.4 % (21.0-51.0); %Monocytes 10.1 % (0.0-10.0); %Neutrophils 67.5 % (42.0-75.0); Hemoglobin 14.7 g/dL (14.0-18.0); Mean Corpuscular Hemoglobin 31.4 pg (27.0-31.0); Mean Corpuscular Volume 98.2 fL (78.0-98.0); Platelet Count 159 thou/uL (130-400); RBC Distribution Width 11.6 % (11.5-14.5); Red Blood Cell (RBC) Count 4.69 mill/uL (4.70-6.10); White Blood Cell (WBC) Count 8.7 thou/uL (4.8-10.8)
[2019-12-08 05:54] LABS: Anion Gap 11 mmol/L (10-20); BUN (Urea Nitrogen) 21 mg/dL (8.4-25.7); Calc. Creatinine Clearance 145 mL/min (70-130); Calcium 8.8 mg/dL (7.8-10.44); Carbon Dioxide 21 mmol/L (23-31); Chloride 108 mmol/L (98-107); Estimated GFR-MDRD Greater than 90; Glucose 99 mg/dL (80-115); Potassium 4.2 mmol/L (3.5-5.1); Sodium 136 mmol/L (136-145)
[2019-12-08] MEDS: Famotidine 20 MG TAB PO SCH ×2 (09:27→20:15)
[2019-12-08] MEDS: Carvedilol 3.125 MG TAB PO SCH ×2 (09:27→17:59)
[2019-12-08] MEDS: levETIRAcetam 500 mg/5 ml Oral Solution PO SCH ×2 (09:27→20:15)
[2019-12-08] MEDS: Polyethylene Glycol 3350 17 GM Packet PO SCH ×2 (09:29→20:15)
[2019-12-08] MEDS: Sacubitril 49 MG/Valsartan 51 MG TABLET PO SCH ×2 (09:29→20:15)
[2019-12-08] MEDS: Terazosin HCl 1 MG CAP PO SCH (09:29)
[2019-12-08] MEDS: Senokot S 8.6-50 MG TAB PO SCH ×2 (09:29→20:15)
--- NOTE | 2019-12-08 11:07 | PDOC.HOSPP ---
- Subjective Encounter Date: 12/08/19 Encounter Time: 10:00 Subjective: is awake watching tv, not fully oriented needs 2-3 prompting, poor attention span - Objective Vital Signs & Weight: Vital Signs (12 hours) Temp Pulse Resp BP BP Pulse Ox 12/08/19 08:34 82 16 92 L 12/08/19 08:22 94 L 12/08/19 07:25 98.7 F 76 18 122/87 94 L 12/08/19 03:25 98.3 F 99 16 122/64 94 L 12/08/19 00:00 80 14 92 L 12/07/19 23:25 99 F 85 18 136/91 H 93 L Weight Admit Weight 200 lb Weight 199 lb 4.8 oz I&O: 12/07/19 12/08/19 12/09/19 06:59 06:59 06:59 Intake Total 1223 1880 Output Total 1100 1300 Balance 123 580 Result Diagrams: 12/08/19 05:18 12/08/19 05:18 Hospitalist ROS - Medication Medications: Active Medications Generic Name Dose Route Start Last Admin Trade Name Freq PRN Reason Stop Dose Admin Albuterol/Ipratropium 3 ml 12/05/19 19:00 12/08/19 08:34 Duoneb NEB 3 ml [id number] ADALGISA Administration Amlodipine Besylate 5 mg 12/04/19 09:00 12/06/19 08:45 Norvasc PO 5 mg DAILY ADALGISA Administration Atorvastatin Calcium 10 mg 12/02/19 21:00 12/07/19 20:29 Lipitor PO 10 mg HS ADALGISA Administration Carvedilol 3.125 mg 12/04/19 17:00 12/08/19 09:27 Coreg PO 3.125 mg BID-WM ADALGISA Administration Famotidine 20 mg 12/02/19 09:00 12/08/19 09:27 Pepcid PO 20 mg BID ADALGISA Administration Potassium Chloride/Dextrose/Sod Cl 1,000 mls @ 50 mls/hr 12/06/19 09:45 12/07 02:02 D5 1/2 Ns W/20 Meq Kcl IV 1,000 mls .Q20H ADALGISA Administration Levetiracetam 500 mg/ Device 100 mls @ 200 mls/hr 12/06/19 21:00 12/08/19 09: 29 IVPB Not Given BID ADALGISA Levetiracetam 500 mg 12/05/19 21:00 12/08/19 09:27 Keppra Oral Solution PO 500 mg BID ADALGISA Administration Minoxidil 2.5 mg 12/03/19 21:00 12/06/19 08:45 Minoxidil PO 2.5 mg BID ADALGISA Administration Polyethylene Glycol 17 gm 12/06/19 21:00 12/08/19 09:29 Miralax PO 17 gm BID ADALGISA Administration Sacubitril/Valsartan 1 tab 12/06/19 09:00 12/08/19 09:29 Entresto 49 Mg-51 Mg Tablet PO 1 tab BID ADALGISA Administration Senna/Docusate Sodium 2 tab 12/05/19 21:00 12/08/19 09:29 Senokot S PO 2 tab BID ADALGISA Administration Sodium Chloride 10 ml 12/01/19 23:09 12/06/19 20:18 Flush - Normal Saline IVF 10 ml PRN PRN Administration Saline Flush Terazosin HCl 1 mg 12/04/19 09:00 12/08/19 09:29 Hytrin PO 1 mg DAILY ADALGISA Administration - Exam Eye: PERRL, anicteric sclera ENT: no oropharyngeal lesions, moist mucosa Neck: supple, no JVD Heart: RRR, no murmur Respiratory: no wheezes, no rales Gastrointestinal: soft, non-tender, non-distended, normal bowel sounds Extremities: no cyanosis, no edema Neurological: hemiplegia, speech deficit Hosp A/P (1) Acute CVA (cerebrovascular accident) Code(s): I63.9 - CEREBRAL INFARCTION, UNSPECIFIED Status: Acute (2) Seizure disorder Code(s): G40.909 - EPILEPSY, UNSP, NOT INTRACTABLE, WITHOUT STATUS EPILEPTICUS Status: Chronic (3) Chronic hepatitis Code(s): K73.9 - CHRONIC HEPATITIS, UNSPECIFIED Status: Chronic (4) BPH (benign prostatic hyperplasia) Code(s): N40.0 - BENIGN PROSTATIC HYPERPLASIA WITHOUT LOWER URINRY TRACT SYMP Status: Acute Qualifiers: Lower urinary tract symptom presence: symptoms present Lower urinary tract symptom detail: urinary retention Qualified Code(s): N40.1 - Benign prostatic hyperplasia with lower urinary tract symptoms; R33.8 - Other retention of urine (5) H/O: CVA (cerebrovascular accident) Code(s): Z86.73 - PRSNL HX OF TIA (TIA), AND CEREB INFRC W/O RESID DEFICITS Status: Chronic (6) Acute metabolic encephalopathy Code(s): G93.41 - METABOLIC ENCEPHALOPATHY Status: Acute (7) Cardiomyopathy Code(s): I42.9 - CARDIOMYOPATHY, UNSPECIFIED Status: Acute Qualifiers: Cardiomyopathy type: unspecified Qualified Code(s): I42.9 - Cardiomyopathy , unspecified (8) Expressive aphasia Code(s): R47.01 - APHASIA Status: Acute (9) Physical deconditioning Code(s): R53.81 - OTHER MALAISE Status: Acute (10) Rhabdomyolysis Code(s): M62.82 - RHABDOMYOLYSIS Status: Resolved Qualifiers: Rhabdomyolysis type: non-traumatic Qualified Code(s): M62.82 - Rhabdomyolysis (11) Chronic atrial fibrillation Code(s): I48.20 - CHRONIC ATRIAL FIBRILLATION, UNSPECIFIED Status: Chronic (12) HTN (hypertension) Code(s): I10 - ESSENTIAL (PRIMARY) HYPERTENSION Status: Chronic Qualifiers: Hypertension type: essential hypertension Qualified Code(s): I10 - Essential (primary) hypertension - Plan has new acute left mca infarct with mild hemorrhagic conversion h/o large right mca infarct with encephalomalacia on MRI rhabdomyolysis is almost resolved afib is rate controlled echo showed ef of 25% with severe mitral regurgitation. continue coreg, low dose lipitor, keppra, entresto, hytrin he will need watchman's device due to cva with hemorrhagic conversion and risk of bleeding for afib life vest very severe deconditioning, barely able to stand with therapy, needs infirmary has indwelling guillen, needs outpt urology appointment in 2 weeks [facility]stable [facility]
--- NOTE | 2019-12-08 18:25 | PDOC.CPN ---
- Subjective Date: 12/08/19 Time: 18:24 Interval history: Remains non verbal. - Review of Systems ROS unobtainable: due to mental status - Objective Allergies/Adverse Reactions: Allergies Allergy/AdvReac Type Severity Reaction Status Date / Time No Known Allergies Allergy Verified 12/01/19 23:11 Visit Medications: Current Medications Albuterol/Ipratropium (Duoneb) 3 ml NEB [id number] [facility] Last Admin: 12/08/19 14:16 Dose: 3 ml Albuterol/Ipratropium (Duoneb) 3 ml NEB [id number] PRN PRN Reason: SOB &/or Wheezing Amlodipine Besylate (Norvasc) 5 mg PO DAILY [facility] Last Admin: 12/06/19 08:45 Dose: 5 mg Atorvastatin Calcium (Lipitor) 10 mg PO [facility] Last Admin: 12/07/19 20:29 Dose: 10 mg Carvedilol (Coreg) 3.125 mg PO BID-[facility] Last Admin: 12/08/19 17:59 Dose: 3.125 mg Famotidine (Pepcid) 20 mg PO BID [facility] Last Admin: 12/08/19 09:27 Dose: 20 mg Hydralazine HCl (Apresoline) 10 mg SLOW IVP Q4H PRN PRN Reason: BP > 220/110 Labetalol HCl (Normodyne) 10 mg SLOW IVP Q4H PRN PRN Reason: Systolic BP > 180 Levetiracetam (Keppra Oral Solution) 500 mg PO BID [facility] Last Admin: 12/08/19 09:27 Dose: 500 mg Minoxidil (Minoxidil) 2.5 mg PO BID [facility] Last Admin: 12/06/19 08:45 Dose: 2.5 mg Miscellaneous Medication (Pharmacy To Dose) 1 each IVPB PRN PRN PRN Reason: Pharmacy to dose Ondansetron HCl (Zofran Odt) 4 mg PO Q6H PRN PRN Reason: Nausea/Vomiting Ondansetron HCl (Zofran) 4 mg IVP Q6H PRN PRN Reason: Nausea/Vomiting Polyethylene Glycol (Miralax) 17 gm PO BID [facility] Last Admin: 12/08/19 09:29 Dose: 17 gm Sacubitril/Valsartan (Entresto 49 Mg-51 Mg Tablet) 1 tab PO BID [facility] Last Admin: 12/08/19 09:29 Dose: 1 tab Senna/Docusate Sodium (Senokot S) 2 tab PO BID [facility] Last Admin: 12/08/19 09:29 Dose: 2 tab Sodium Chloride (Flush - Normal Saline) 10 ml IVF PRN PRN PRN Reason: Saline Flush Last Admin: 12/06/19 20:18 Dose: 10 ml Terazosin HCl (Hytrin) 1 mg PO DAILY [facility] Last Admin: 12/08/19 09:29 Dose: 1 mg Vital Signs & Weight: Vital Signs Temp Pulse Resp BP Pulse Ox 12/08/19 15:35 97.7 F 92 20 111/81 94 L 12/08/19 14:16 81 16 12/08/19 11:45 99 F 91 18 111/76 95 12/08/19 08:34 82 16 92 L 12/08/19 08:22 94 L 12/08/19 07:25 98.7 F 76 18 122/87 94 L Admit Weight 200 lb Weight 199 lb 4.8 oz - Physical Exam General: no apparent distress HEENT: normocephaly Neck: midline trachea Cardiac: irregularly regular Lungs: clear to auscultation Neuro: weakness Abdomen: active bowel sounds Extremities: 1+ LE edema Skin: clear Musculoskeletal: no pain - Labs Result Diagrams: 12/08/19 05:18 12/08/19 05:18 Troponin/CKMB CK-MB (CK-2) 13.1 ng/mL (0-6.6) H* 12/01/19 17:30 Troponin I 0.041 ng/mL (< 0.028) H 12/02/19 05:09 - Telemetry Supraventricular conduction: atrial fibrillation - Assessment/Plan Assessment/Plan: 1. New onset Dilated CM 2. Acute/Subacute CVA 3. Chronic atrial fibrilation 4. Hx of previous CVA with hemorrhagic conversion. PLAN: - Switch to PO lasix. - Cannot do lifevest as he cannot follow commands. - May discharge at any time from cardiac perspective. - Will need follow up with Cardiology at [facility] for re evaluation of LV function to assess for need of an AICD and for up titration of medications. - May discharge any time from cardiac perspective.
[2019-12-08] MEDS: Atorvastatin Calcium 10 MG TAB PO SCH (20:15)
[2019-12-09] MEDS: Polyethylene Glycol 3350 17 GM Packet PO SCH ×2 (10:16→21:02)
[2019-12-09] MEDS: levETIRAcetam 500 mg/5 ml Oral Solution PO SCH ×2 (10:16→21:00)
[2019-12-09] MEDS: Carvedilol 3.125 MG TAB PO SCH ×2 (10:16→17:32)
[2019-12-09] MEDS: Sacubitril 49 MG/Valsartan 51 MG TABLET PO SCH ×2 (10:16→21:00)
[2019-12-09] MEDS: Famotidine 20 MG TAB PO SCH ×2 (10:16→21:01)
[2019-12-09] MEDS: Terazosin HCl 1 MG CAP PO SCH (10:16)
[2019-12-09] MEDS: Senokot S 8.6-50 MG TAB PO SCH ×2 (10:17→21:01)
--- NOTE | 2019-12-09 11:34 | PDOC.HOSPP ---
- Subjective Encounter Date: 12/09/19 Encounter Time: 09:45 Subjective: awake, not oriented, does not follow verbal stimuli this am not in distress ate his breakfast - Objective Vital Signs & Weight: Vital Signs (12 hours) Temp Pulse Resp BP BP Pulse Ox 12/09/19 08:00 93 L 12/09/19 07:33 97.5 F L 90 16 126/91 H 93 L 12/09/19 07:11 93 16 94 L 12/09/19 03:20 98.4 F 98 16 119/74 93 L 12/09/19 00:50 82 16 93 L Weight Admit Weight 200 lb Weight 195 lb 8 oz I&O: 12/08/19 12/09/19 12/10/19 06:59 06:59 06:59 Intake Total 1880 960 Output Total 1300 1150 Balance 580 -190 Result Diagrams: 12/08/19 05:18 12/08/19 05:18 Hospitalist ROS - Medication Medications: Active Medications Generic Name Dose Route Start Last Admin Trade Name Freq PRN Reason Stop Dose Admin Albuterol/Ipratropium 3 ml 12/05/19 19:00 12/09/19 07:11 Duoneb NEB 3 ml [id number] ADALGISA Administration Amlodipine Besylate 5 mg 12/04/19 09:00 12/06/19 08:45 Norvasc PO 5 mg DAILY ADALGISA Administration Atorvastatin Calcium 10 mg 12/02/19 21:00 12/08/19 20:15 Lipitor PO 10 mg HS ADALGISA Administration Carvedilol 3.125 mg 12/04/19 17:00 12/09/19 10:16 Coreg PO 3.125 mg BID-WM ADALGISA Administration Famotidine 20 mg 12/02/19 09:00 12/09/19 10:16 Pepcid PO 20 mg BID ADALGISA Administration Levetiracetam 500 mg 12/05/19 21:00 12/09/19 10:16 Keppra Oral Solution PO 500 mg BID ADALGISA Administration Minoxidil 2.5 mg 12/03/19 21:00 12/06/19 08:45 Minoxidil PO 2.5 mg BID ADALGISA Administration Polyethylene Glycol 17 gm 12/06/19 21:00 12/09/19 10:16 Miralax PO Not Given BID ADALGISA Sacubitril/Valsartan 1 tab 12/06/19 09:00 12/09/19 10:16 Entresto 49 Mg-51 Mg Tablet PO 1 tab BID ADALGISA Administration Senna/Docusate Sodium 2 tab 12/05/19 21:00 12/09/19 10:17 Senokot S PO Not Given BID ADALGISA Sodium Chloride 10 ml 12/01/19 23:09 12/06/19 20:18 Flush - Normal Saline IVF 10 ml PRN PRN Administration Saline Flush Terazosin HCl 1 mg 12/04/19 09:00 12/09/19 10:16 Hytrin PO 1 mg DAILY ADALGISA Administration - Exam General Appearance: ill appearing Eye: PERRL, anicteric sclera ENT: no oropharyngeal lesions, moist mucosa Neck: supple, no JVD Heart: RRR, no murmur Respiratory: normal chest expansion, no tachypnea Gastrointestinal: soft, non-tender, non-distended, normal bowel sounds Extremities: no cyanosis, no edema Neurological: hemiplegia, speech deficit Hosp A/P (1) Acute CVA (cerebrovascular accident) Code(s): I63.9 - CEREBRAL INFARCTION, UNSPECIFIED Status: Acute (2) Seizure disorder Code(s): G40.909 - EPILEPSY, UNSP, NOT INTRACTABLE, WITHOUT STATUS EPILEPTICUS Status: Chronic (3) Chronic hepatitis Code(s): K73.9 - CHRONIC HEPATITIS, UNSPECIFIED Status: Chronic (4) BPH (benign prostatic hyperplasia) Code(s): N40.0 - BENIGN PROSTATIC HYPERPLASIA WITHOUT LOWER URINRY TRACT SYMP Status: Acute Qualifiers: Lower urinary tract symptom presence: symptoms present Lower urinary tract symptom detail: urinary retention Qualified Code(s): N40.1 - Benign prostatic hyperplasia with lower urinary tract symptoms; R33.8 - Other retention of urine (5) H/O: CVA (cerebrovascular accident) Code(s): Z86.73 - PRSNL HX OF TIA (TIA), AND CEREB INFRC W/O RESID DEFICITS Status: Chronic (6) Acute metabolic encephalopathy Code(s): G93.41 - METABOLIC ENCEPHALOPATHY Status: Acute (7) Cardiomyopathy Code(s): I42.9 - CARDIOMYOPATHY, UNSPECIFIED Status: Acute Qualifiers: Cardiomyopathy type: unspecified Qualified Code(s): I42.9 - Cardiomyopathy , unspecified (8) Expressive aphasia Code(s): R47.01 - APHASIA Status: Acute (9) Physical deconditioning Code(s): R53.81 - OTHER MALAISE Status: Acute (10) Rhabdomyolysis Code(s): M62.82 - RHABDOMYOLYSIS Status: Resolved Qualifiers: Rhabdomyolysis type: non-traumatic Qualified Code(s): M62.82 - Rhabdomyolysis (11) Chronic atrial fibrillation Code(s): I48.20 - CHRONIC ATRIAL FIBRILLATION, UNSPECIFIED Status: Chronic (12) HTN (hypertension) Code(s): I10 - ESSENTIAL (PRIMARY) HYPERTENSION Status: Chronic Qualifiers: Hypertension type: essential hypertension Qualified Code(s): I10 - Essential (primary) hypertension - Plan has new acute left mca infarct with mild hemorrhagic conversion h/o large right mca infarct with encephalomalacia on MRI rhabdomyolysis is almost resolved afib is rate controlled echo showed ef of 25% with severe mitral regurgitation. continue coreg, low dose lipitor, keppra, entresto, hytrin he will need watchman's device due to cva with hemorrhagic conversion and risk of bleeding for afib life vest is not an option as patient is not oriented to follow instructions. very severe deconditioning, barely able to stand with therapy, needs infirmary has indwelling guillen, needs outpt urology appointment in 2 weeks hemo/neuorstable dc plan anytime to infirmary when its ready
--- NOTE | 2019-12-09 17:45 | PDOC.CPN ---
- Subjective Date: 12/09/19 Time: 17:42 Interval history: No new issues,. Remains minimally verbal. Says yes to everything. - Review of Systems ROS unobtainable: due to mental status - Objective Allergies/Adverse Reactions: Allergies Allergy/AdvReac Type Severity Reaction Status Date / Time No Known Allergies Allergy Verified 12/01/19 23:11 Visit Medications: Current Medications Albuterol/Ipratropium (Duoneb) 3 ml NEB [id number] [facility] Last Admin: 12/09/19 13:27 Dose: 3 ml Albuterol/Ipratropium (Duoneb) 3 ml NEB [id number] PRN PRN Reason: SOB &/or Wheezing Amlodipine Besylate (Norvasc) 5 mg PO DAILY [facility] Last Admin: 12/06/19 08:45 Dose: 5 mg Atorvastatin Calcium (Lipitor) 10 mg PO [facility] Last Admin: 12/08/19 20:15 Dose: 10 mg Carvedilol (Coreg) 3.125 mg PO BID-[facility] Last Admin: 12/09/19 17:32 Dose: 3.125 mg Famotidine (Pepcid) 20 mg PO BID [facility] Last Admin: 12/09/19 10:16 Dose: 20 mg Hydralazine HCl (Apresoline) 10 mg SLOW IVP Q4H PRN PRN Reason: BP > 220/110 Labetalol HCl (Normodyne) 10 mg SLOW IVP Q4H PRN PRN Reason: Systolic BP > 180 Levetiracetam (Keppra Oral Solution) 500 mg PO BID [facility] Last Admin: 12/09/19 10:16 Dose: 500 mg Minoxidil (Minoxidil) 2.5 mg PO BID [facility] Last Admin: 12/06/19 08:45 Dose: 2.5 mg Miscellaneous Medication (Pharmacy To Dose) 1 each IVPB PRN PRN PRN Reason: Pharmacy to dose Ondansetron HCl (Zofran Odt) 4 mg PO Q6H PRN PRN Reason: Nausea/Vomiting Ondansetron HCl (Zofran) 4 mg IVP Q6H PRN PRN Reason: Nausea/Vomiting Polyethylene Glycol (Miralax) 17 gm PO BID [facility] Last Admin: 12/09/19 10:16 Dose: Not Given Sacubitril/Valsartan (Entresto 49 Mg-51 Mg Tablet) 1 tab PO BID [facility] Last Admin: 12/09/19 10:16 Dose: 1 tab Senna/Docusate Sodium (Senokot S) 2 tab PO BID [facility] Last Admin: 12/09/19 10:17 Dose: Not Given Sodium Chloride (Flush - Normal Saline) 10 ml IVF PRN PRN PRN Reason: Saline Flush Last Admin: 12/06/19 20:18 Dose: 10 ml Terazosin HCl (Hytrin) 1 mg PO DAILY [facility] Last Admin: 12/09/19 10:16 Dose: 1 mg Vital Signs & Weight: Vital Signs Temp Pulse Pulse Resp BP BP Pulse Ox 12/09/19 15:19 98.4 F 81 16 117/87 94 L 12/09/19 13:27 87 16 94 L 12/09/19 11:30 97.6 F 87 16 128/80 96 12/09/19 10:07 78 135/93 H 12/09/19 08:00 93 L 12/09/19 07:33 97.5 F L 90 16 126/91 H 93 L 12/09/19 07:11 93 16 94 L Admit Weight 200 lb Weight 195 lb 8 oz - Physical Exam General: no apparent distress HEENT: normocephaly Neck: midline trachea Cardiac: no murmur Lungs: normal breath sounds Neuro: weakness Abdomen: active bowel sounds Extremities: no edema Skin: clear Musculoskeletal: normal range of motion - Labs Result Diagrams: 12/08/19 05:18 12/08/19 05:18 Troponin/CKMB CK-MB (CK-2) 13.1 ng/mL (0-6.6) H* 12/01/19 17:30 Troponin I 0.041 ng/mL (< 0.028) H 12/02/19 05:09 - Telemetry Supraventricular conduction: atrial fibrillation - Assessment/Plan Assessment/Plan: 1. New onset Dilated CM 2. Acute/Subacute CVA 3. Chronic atrial fibrilation 4. Hx of previous CVA with hemorrhagic conversion. PLAN: - Switch to PO lasix. - Cannot do lifevest as he cannot follow commands. - Will need follow up with Cardiology at [facility] for re evaluation of LV function to assess for need of an AICD and for up titration of medications. May aklso need consideration of a watchman device. - May discharge any time from cardiac perspective. - Would recommend starting Eliquis or warfarin for stroke prophylaxis in 2-4 weeks to minimize risk for hemorrhagic conversion of CVA. - Will sign off. Please call with any questions.
[2019-12-09] MEDS: Atorvastatin Calcium 10 MG TAB PO SCH (21:01)
[2019-12-10] MEDS: Famotidine 20 MG TAB PO SCH ×2 (08:46→20:13)
[2019-12-10] MEDS: Polyethylene Glycol 3350 17 GM Packet PO SCH ×2 (08:46→20:14)
[2019-12-10] MEDS: Terazosin HCl 1 MG CAP PO SCH (08:46)
[2019-12-10] MEDS: Carvedilol 3.125 MG TAB PO SCH ×2 (08:46→16:46)
[2019-12-10] MEDS: Sacubitril 49 MG/Valsartan 51 MG TABLET PO SCH ×2 (08:46→20:13)
[2019-12-10] MEDS: levETIRAcetam 500 mg/5 ml Oral Solution PO SCH ×2 (08:46→20:13)
[2019-12-10] MEDS: Senokot S 8.6-50 MG TAB PO SCH ×2 (08:47→20:13)
--- NOTE | 2019-12-10 17:16 | PDOC.HOSPP ---
- Subjective Encounter Date: 12/10/19 Encounter Time: 14:00 Subjective: Patient seen and examined for acute CVA. Somnolent. No new complaints. No overnight events - Objective Vital Signs & Weight: Vital Signs (12 hours) Temp Pulse Resp BP Pulse Ox 12/10/19 15:25 98.5 F 96 18 140/87 93 L 12/10/19 11:57 96 20 94 L 12/10/19 11:39 97.3 F L 84 15 101/72 94 L 12/10/19 08:00 97 12/10/19 07:31 100 20 131/90 97 12/10/19 07:25 97 16 94 L Weight Admit Weight 200 lb Weight 192 lb 8 oz I&O: 12/09/19 12/10/19 12/11/19 06:59 06:59 06:59 Intake Total 960 474 Output Total 1150 1125 Balance -190 -226 Result Diagrams: 12/08/19 05:18 12/08/19 05:18 EKG Reviewed by me: Yes (Tele Afib) Hospitalist ROS - Review of Systems Respiratory: denies: cough, dry, shortness of breath, hemoptysis, SOB with excertion, pleuritic pain, sputum, wheezing, other Cardiovascular: denies: chest pain, palpitations, orthopnea, paroxysmal noc. dyspnea, edema, light headedness, other - Medication Medications: Active Medications Generic Name Dose Route Start Last Admin Trade Name Freq PRN Reason Stop Dose Admin Amlodipine Besylate 5 mg 12/04/19 09:00 12/06/19 08:45 Norvasc PO 5 mg DAILY [facility] Administration Atorvastatin Calcium 10 mg 12/02/19 21:00 12/09/19 21:01 Lipitor PO 10 mg HS [facility] Administration Carvedilol 3.125 mg 12/04/19 17:00 12/10/19 16:46 Coreg PO 3.125 mg BID-WM [facility] Administration Famotidine 20 mg 12/02/19 09:00 12/10/19 08:46 Pepcid PO 20 mg BID [facility] Administration Levetiracetam 500 mg 12/05/19 21:00 12/10/19 08:46 Keppra Oral Solution PO 500 mg BID [facility] Administration Minoxidil 2.5 mg 12/03/19 21:00 12/06/19 08:45 Minoxidil PO 2.5 mg BID [facility] Administration Polyethylene Glycol 17 gm 12/06/19 21:00 12/10/19 08:46 Miralax PO Not Given BID [facility] Sacubitril/Valsartan 1 tab 12/06/19 09:00 12/10/19 08:46 Entresto 49 Mg-51 Mg Tablet PO 1 tab BID [facility] Administration Senna/Docusate Sodium 2 tab 12/05/19 21:00 12/10/19 08:47 Senokot S PO Not Given BID [facility] Sodium Chloride 10 ml 12/01/19 23:09 12/09/19 21:01 Flush - Normal Saline IVF 10 ml PRN PRN Administration Saline Flush Terazosin HCl 1 mg 12/04/19 09:00 12/10/19 08:46 Hytrin PO 1 mg DAILY [facility] Administration - Exam General Appearance: NAD Heart: no gallops, irregular Respiratory: no wheezes, no rales Gastrointestinal: non-tender, non-distended Extremities: no cyanosis, no clubbing Neurological: no new deficit Hosp A/P - Plan DVT proph w/SCDs Acute CVA with hemorrhagic conversion Toxic Metabolic Encephalopathy due to CVA Chronic systolic HF EF 25-30% Chr Afib - not a anticoag candidate Rhabdomyolysis Obstructive uropathy/Urinary retention - guillen placed 5/2 Seizure disorder HTN Chronic Hep C BPH Dementia Constipation PLAN: Not on ASA due to hemorrhagic conversion - Will check with Neuro if ok to restart Cont Coreg/Entresto Cont other meds as above Await [facility] bed - forms completed
[2019-12-10] MEDS: Atorvastatin Calcium 10 MG TAB PO SCH (20:13)
[2019-12-11] MEDS: Famotidine 20 MG TAB PO SCH ×2 (09:47→20:01)
[2019-12-11] MEDS: Aspirin 81 mg Enteric Coated Tablet PO SCH (09:47)
[2019-12-11] MEDS: Carvedilol 3.125 MG TAB PO SCH ×2 (09:48→16:53)
[2019-12-11] MEDS: Terazosin HCl 1 MG CAP PO SCH (09:48)
[2019-12-11] MEDS: Sacubitril 49 MG/Valsartan 51 MG TABLET PO SCH ×2 (09:48→20:01)
[2019-12-11] MEDS: Polyethylene Glycol 3350 17 GM Packet PO SCH (09:48)
[2019-12-11] MEDS: levETIRAcetam 500 mg/5 ml Oral Solution PO SCH ×2 (09:48→20:00)
[2019-12-11] MEDS: Senokot S 8.6-50 MG TAB PO SCH ×2 (09:48→20:01)
--- NOTE | 2019-12-11 11:55 | PDOC.CPN ---
- Subjective Date: 12/11/19 Time: 11:53 Interval history: Remains non verbal. - Review of Systems ROS unobtainable: due to mental status - Objective Allergies/Adverse Reactions: Allergies Allergy/AdvReac Type Severity Reaction Status Date / Time No Known Allergies Allergy Verified 12/01/19 23:11 Visit Medications: Current Medications Albuterol/Ipratropium (Duoneb) 3 ml NEB [id number] PRN PRN Reason: SOB &/or Wheezing Amlodipine Besylate (Norvasc) 5 mg PO DAILY [facility] Last Admin: 12/06/19 08:45 Dose: 5 mg Aspirin (Ecotrin) 81 mg PO DAILY [facility] Last Admin: 12/11/19 09:47 Dose: 81 mg Atorvastatin Calcium (Lipitor) 10 mg PO HS [facility] Last Admin: 12/10/19 20:13 Dose: 10 mg Carvedilol (Coreg) 6.25 mg PO BID-[facility] Famotidine (Pepcid) 20 mg PO BID [facility] Last Admin: 12/11/19 09:47 Dose: 20 mg Hydralazine HCl (Apresoline) 10 mg SLOW IVP Q4H PRN PRN Reason: BP > 220/110 Labetalol HCl (Normodyne) 10 mg SLOW IVP Q4H PRN PRN Reason: Systolic BP > 180 Levetiracetam (Keppra Oral Solution) 500 mg PO BID [facility] Last Admin: 12/11/19 09:48 Dose: 500 mg Minoxidil (Minoxidil) 2.5 mg PO BID [facility] Last Admin: 12/06/19 08:45 Dose: 2.5 mg Ondansetron HCl (Zofran Odt) 4 mg PO Q6H PRN PRN Reason: Nausea/Vomiting Ondansetron HCl (Zofran) 4 mg IVP Q6H PRN PRN Reason: Nausea/Vomiting Polyethylene Glycol (Miralax) 17 gm PO BID [facility] Last Admin: 12/11/19 09:48 Dose: Not Given Sacubitril/Valsartan (Entresto 49 Mg-51 Mg Tablet) 1 tab PO BID [facility] Last Admin: 12/11/19 09:48 Dose: 1 tab Senna/Docusate Sodium (Senokot S) 2 tab PO BID [facility] Last Admin: 12/11/19 09:48 Dose: 2 tab Sodium Chloride (Flush - Normal Saline) 10 ml IVF PRN PRN PRN Reason: Saline Flush Last Admin: 12/10/19 20:14 Dose: 10 ml Terazosin HCl (Hytrin) 1 mg PO DAILY [facility] Last Admin: 12/11/19 09:48 Dose: 1 mg Vital Signs & Weight: Vital Signs Temp Pulse Pulse Pulse Resp BP BP 12/11/19 11:27 97.7 F 89 18 12/11/19 08:57 83 97 120/89 126/99 H 12/11/19 08:50 12/11/19 07:30 98.1 F 99 20 12/11/19 03:08 98.5 F 76 20 BP BP Pulse Ox 12/11/19 11:27 118/84 93 L 12/11/19 08:57 12/11/19 08:50 95 12/11/19 07:30 120/88 95 12/11/19 03:08 129/62 95 Admit Weight 200 lb Weight 192 lb 4.8 oz - Physical Exam General: no apparent distress HEENT: mucus membranes moist Neck: midline trachea Cardiac: regular rate and rhythm Lungs: normal breath sounds Neuro: weakness Abdomen: active bowel sounds Extremities: no edema Skin: clear Musculoskeletal: normal range of motion - Labs Result Diagrams: 12/08/19 05:18 12/08/19 05:18 Troponin/CKMB CK-MB (CK-2) 13.1 ng/mL (0-6.6) H* 12/01/19 17:30 Troponin I 0.041 ng/mL (< 0.028) H 12/02/19 05:09 - Telemetry Sinus rhythms and dysrhythmias: sinus rhythm - Assessment/Plan Assessment/Plan: 1. New onset Dilated CM 2. Acute/Subacute CVA 3. Chronic atrial fibrilation 4. Hx of previous CVA with hemorrhagic conversion. 5. Non sustained VT (9 beats) PLAN: - Cannot do lifevest as he cannot follow commands. - Will increase Coreg - No other new recs. - Will sign off. Call with questions.
--- NOTE | 2019-12-11 13:37 | PDOC.HOSPP ---
- Subjective Encounter Date: 12/11/19 Encounter Time: 10:30 Subjective: Patient seen and examined for acute CVA. No new focal deficits. No CP. No new complaints. No overnight events - Objective Vital Signs & Weight: Vital Signs (12 hours) Temp Pulse Pulse Pulse Resp BP BP 12/11/19 11:27 97.7 F 89 18 12/11/19 08:57 83 97 120/89 126/99 H 12/11/19 08:50 12/11/19 07:30 98.1 F 99 20 12/11/19 03:08 98.5 F 76 20 BP BP Pulse Ox 12/11/19 11:27 118/84 93 L 12/11/19 08:57 12/11/19 08:50 95 12/11/19 07:30 120/88 95 12/11/19 03:08 129/62 95 Weight Admit Weight 200 lb Weight 192 lb 4.8 oz I&O: 12/10/19 12/11/19 12/12/19 06:59 06:59 06:59 Intake Total 474 463 Output Total 1126 630 Balance -651 -167 Result Diagrams: 12/08/19 05:18 12/08/19 05:18 EKG Reviewed by me: Yes (Tele Afib/NSVT earlier) Hospitalist ROS - Review of Systems Respiratory: denies: cough, dry, shortness of breath, hemoptysis, SOB with excertion, pleuritic pain, sputum, wheezing, other Cardiovascular: denies: chest pain, palpitations, orthopnea, paroxysmal noc. dyspnea, edema, light headedness, other Gastrointestinal: denies: nausea, vomiting, abdominal pain, diarrhea, constipation, melena, hematochezia, other - Medication Medications: Active Medications Generic Name Dose Route Start Last Admin Trade Name Freq PRN Reason Stop Dose Admin Aspirin 81 mg 12/11/19 09:00 12/11/19 09:47 Ecotrin PO 81 mg DAILY [facility] Administration Atorvastatin Calcium 10 mg 12/02/19 21:00 12/10/19 20:13 Lipitor PO 10 mg HS [facility] Administration Famotidine 20 mg 12/02/19 09:00 12/11/19 09:47 Pepcid PO 20 mg BID [facility] Administration Levetiracetam 500 mg 12/05/19 21:00 12/11/19 09:48 Keppra Oral Solution PO 500 mg BID [facility] Administration Polyethylene Glycol 17 gm 12/06/19 21:00 12/11/19 09:48 Miralax PO Not Given BID [facility] Sacubitril/Valsartan 1 tab 12/06/19 09:00 12/11/19 09:48 Entresto 49 Mg-51 Mg Tablet PO 1 tab BID [facility] Administration Senna/Docusate Sodium 2 tab 12/05/19 21:00 12/11/19 09:48 Senokot S PO 2 tab BID [facility] Administration Sodium Chloride 10 ml 12/01/19 23:09 12/10/19 20:14 Flush - Normal Saline IVF 10 ml PRN PRN Administration Saline Flush Terazosin HCl 1 mg 12/04/19 09:00 12/11/19 09:48 Hytrin PO 1 mg DAILY [facility] Administration - Exam General Appearance: NAD Heart: RRR, no gallops Respiratory: no wheezes, no rales Gastrointestinal: non-tender, non-distended, normal bowel sounds Extremities: no cyanosis, no clubbing Neurological: no new deficit Hosp A/P - Plan DVT proph w/SCDs Acute CVA with hemorrhagic conversion Toxic Metabolic Encephalopathy due to CVA Chronic systolic HF EF 25-30% NSVT Chr Afib - not a anticoag candidate Rhabdomyolysis Obstructive uropathy/Urinary retention - guillen placed 5/2 Seizure disorder HTN Chronic Hep C BPH Dementia Constipation PLAN: ASA restarted 2 gm IV Magnessium due to NSVT Coreg dose increased due to NSVT Cont Entresto Cont other meds as above Await [facility] bed - forms completed - stable for dc
[2019-12-11] MEDS ORDERED: Magnesium 2 GM/50 ML 2 GM in Premix Bag 1 BAG IVPB SCH (13:45)
[2019-12-11] MEDS: Atorvastatin Calcium 10 MG TAB PO SCH (20:02)
[2019-12-12] MEDS: Polyethylene Glycol 3350 17 GM Packet PO SCH ×3 (03:36→21:01)
--- NOTE | 2019-12-12 08:06 | PDOC.HOSPP ---
- Subjective Encounter Date: 12/12/19 Encounter Time: 07:30 Subjective: Patient seen and examined for acute CVA. No new complaints. No overnight events - Objective Vital Signs & Weight: Vital Signs (12 hours) Temp Pulse Resp BP BP Pulse Ox 12/12/19 07:14 98.4 F 82 18 122/92 H 94 L 12/12/19 03:18 97.7 F 78 18 125/81 95 Weight Admit Weight 200 lb Weight 185 lb 6.4 oz I&O: 12/11/19 12/12/19 12/13/19 06:59 06:59 06:59 Intake Total 463 500 Output Total 630 1025 Balance -167 -525 Result Diagrams: 12/08/19 05:18 12/08/19 05:18 EKG Reviewed by me: Yes (Tele Afib) Hospitalist ROS - Review of Systems Respiratory: denies: cough, dry, shortness of breath, hemoptysis, SOB with excertion, pleuritic pain, sputum, wheezing, other Cardiovascular: denies: chest pain, palpitations, orthopnea, paroxysmal noc. dyspnea, edema, light headedness, other - Medication Medications: Active Medications Generic Name Dose Route Start Last Admin Trade Name Freq PRN Reason Stop Dose Admin Aspirin 81 mg 12/11/19 09:00 12/11/19 09:47 Ecotrin PO 81 mg DAILY [facility] Administration Atorvastatin Calcium 10 mg 12/02/19 21:00 12/11/19 20:02 Lipitor PO 10 mg HS ADAL[facility]ISA Administration Carvedilol 6.25 mg 12/11/19 17:00 12/11/19 16:53 Coreg PO 6.25 mg BID-WM ADALGISA Administration Famotidine 20 mg 12/02/19 09:00 12/11/19 20:01 Pepcid PO 20 mg BID [facility] Administration Levetiracetam 500 mg 12/05/19 21:00 12/11/19 20:00 Keppra Oral Solution PO 500 mg BID [facility] Administration Polyethylene Glycol 17 gm 12/06/19 21:00 12/12/19 03:36 Miralax PO Not Given BID [facility] Sacubitril/Valsartan 1 tab 12/06/19 09:00 12/11/19 20:01 Entresto 49 Mg-51 Mg Tablet PO 1 tab BID [facility] Administration Senna/Docusate Sodium 2 tab 12/05/19 21:00 12/11/19 20:01 Senokot S PO 2 tab BID [facility] Administration Sodium Chloride 10 ml 12/01/19 23:09 12/10/19 20:14 Flush - Normal Saline IVF 10 ml PRN PRN Administration Saline Flush Terazosin HCl 1 mg 12/04/19 09:00 12/11/19 09:48 Hytrin PO 1 mg DAILY [facility] Administration - Exam General Appearance: NAD Neck: supple, no JVD Heart: no gallops, irregular Respiratory: CTAB, no wheezes, no rales Gastrointestinal: soft, non-distended, normal bowel sounds Extremities: no cyanosis Skin: normal turgor Hosp A/P - Plan DVT proph w/SCDs Acute CVA with hemorrhagic conversion Toxic Metabolic Encephalopathy due to CVA Chronic systolic HF EF 25-30% NSVT Chr Afib - not a anticoag candidate Rhabdomyolysis Obstructive uropathy/Urinary retention - guillen placed 5/2 Seizure disorder HTN Chronic Hep C BPH Dementia Constipation PLAN: ASA restarted Cont Coreg Cont Entresto Not a candidate for lifevest per Cardiology [facility] - stable for dc Cont other meds as above
[2019-12-12] MEDS: Terazosin HCl 1 MG CAP PO SCH (09:43)
[2019-12-12] MEDS: Famotidine 20 MG TAB PO SCH ×2 (09:44→21:01)
[2019-12-12] MEDS: Aspirin 81 mg Enteric Coated Tablet PO SCH (09:44)
[2019-12-12] MEDS: Sacubitril 49 MG/Valsartan 51 MG TABLET PO SCH ×2 (09:44→21:01)
[2019-12-12] MEDS: Senokot S 8.6-50 MG TAB PO SCH ×2 (09:44→21:02)
[2019-12-12] MEDS: Carvedilol 3.125 MG TAB PO SCH ×2 (09:44→18:20)
[2019-12-12] MEDS: levETIRAcetam 500 mg/5 ml Oral Solution PO SCH ×2 (09:45→21:01)
[2019-12-12] MEDS: Atorvastatin Calcium 10 MG TAB PO SCH (21:01)
[2019-12-13 04:48] LABS: #Basophils 0.1 thou/uL (0.0-0.2); #Eosinphils 0.1 thou/uL (0.0-0.7); #Lymphocytes 1.5 thou/uL (1.20-3.40); #Monocytes 0.7 thou/uL (0.11-0.59); #Neutrophils 7.4 thou/uL (1.40-6.50); %Basophils 0.6 % (0.0-1.0); %Eosinophils 0.9 % (0.0-10.0); %Lymphocytes 15.3 % (21.0-51.0); %Monocytes 7.2 % (0.0-10.0); %Neutrophils 76.1 % (42.0-75.0); Hemoglobin 15.5 g/dL (14.0-18.0); Mean Corpuscular HGB CONC 31.8 g/dL (32.0-36.0); Mean Corpuscular Volume 97.4 fL (78.0-98.0); Mean Platelet Volume 9.3 fL (7.4-10.4); Platelet Count 193 thou/uL (130-400); RBC Distribution Width 11.8 % (11.5-14.5); Red Blood Cell (RBC) Count 4.98 mill/uL (4.70-6.10); White Blood Cell (WBC) Count 9.7 thou/uL (4.8-10.8)
[2019-12-13 05:04] LABS: Anion Gap 13 mmol/L (10-20); BUN (Urea Nitrogen) 27 mg/dL (8.4-25.7); Calc. Creatinine Clearance 137 mL/min (70-130); Calcium 9.1 mg/dL (7.8-10.44); Carbon Dioxide 21 mmol/L (23-31); Chloride 111 mmol/L (98-107); Estimated GFR-MDRD Greater than 90; Glucose 108 mg/dL (80-115); Magnesium 2.2 mg/dL (1.6-2.6); Potassium 4.2 mmol/L (3.5-5.1); Sodium 141 mmol/L (136-145)
--- NOTE | 2019-12-13 08:52 | PDOC.HOSPP ---
- Subjective Encounter Date: 12/13/19 Encounter Time: 08:00 Subjective: Patient seen and examined for CVA. No new focal deficits. No new complaints. No overnight events - Objective Vital Signs & Weight: Vital Signs (12 hours) Temp Pulse Resp BP Pulse Ox 12/13/19 07:50 98.8 F 98 22 H 119/84 94 L 12/13/19 03:53 98.2 F 92 22 H 118/79 94 L Weight Admit Weight 200 lb Weight 186 lb 4.8 oz I&O: 12/12/19 12/13/19 12/14/19 06:59 06:59 06:59 Intake Total 500 Output Total 1025 580 Balance -525 -580 Result Diagrams: 12/13/19 04:24 12/13/19 04:24 EKG Reviewed by me: Yes (Tele Afib) Hospitalist ROS - Review of Systems Respiratory: denies: cough, dry, shortness of breath, hemoptysis, SOB with excertion, pleuritic pain, sputum, wheezing, other Cardiovascular: denies: chest pain, palpitations, orthopnea, paroxysmal noc. dyspnea, edema, light headedness, other - Medication Medications: Active Medications Generic Name Dose Route Start Last Admin Trade Name Freq PRN Reason Stop Dose Admin Aspirin 81 mg 12/11/19 09:00 12/12/19 09:44 Ecotrin PO 81 mg DAILY [facility] Administration Atorvastatin Calcium 10 mg 12/02/19 21:00 12/12/19 21:01 Lipitor PO 10 mg HS [facility]ISA Administration Carvedilol 6.25 mg 12/11/19 17:00 12/12/19 18:20 Coreg PO 6.25 mg BID-WM ADALGISA Administration Famotidine 20 mg 12/02/19 09:00 12/12/19 21:01 Pepcid PO 20 mg BID ADAL[facility]ISA Administration Levetiracetam 500 mg 12/05/19 21:00 12/12/19 21:01 Keppra Oral Solution PO 500 mg BID ADAL[facility]ISA Administration Polyethylene Glycol 17 gm 12/06/19 21:00 12/12/19 21:01 Miralax PO Not Given BID [facility] Sacubitril/Valsartan 1 tab 12/06/19 09:00 12/12/19 21:01 Entresto 49 Mg-51 Mg Tablet PO 1 tab BID [facility] Administration Senna/Docusate Sodium 2 tab 12/05/19 21:00 12/12/19 21:02 Senokot S PO Not Given BID [facility] Sodium Chloride 10 ml 12/01/19 23:09 12/10/19 20:14 Flush - Normal Saline IVF 10 ml PRN PRN Administration Saline Flush Terazosin HCl 1 mg 12/04/19 09:00 12/12/19 09:43 Hytrin PO 1 mg DAILY [facility] Administration - Exam General Appearance: NAD Heart: RRR, no gallops Respiratory: no wheezes, no ronchi Gastrointestinal: non-tender, non-distended Extremities: no cyanosis, no clubbing Neurological: no new deficit Hosp A/P - Plan DVT proph w/SCDs Acute CVA with hemorrhagic conversion - on ASA Toxic Metabolic Encephalopathy due to CVA Chronic systolic HF EF 25-30% NSVT - BB dose increased Chr Afib - not a anticoag candidate Rhabdomyolysis Obstructive uropathy/Urinary retention - guillen placed 5/2 Seizure disorder HTN Chronic Hep C BPH Dementia Constipation PLAN: Cont ASA Cont Coreg Cont Entresto Not a candidate for lifevest per Cardiology AICD eval as outpt [facility] bed - stable for dc Cont other meds as above
[2019-12-13] MEDS: Carvedilol 3.125 MG TAB PO SCH ×2 (10:00→16:01)
[2019-12-13] MEDS: Terazosin HCl 1 MG CAP PO SCH (10:00)
[2019-12-13] MEDS: Famotidine 20 MG TAB PO SCH ×2 (10:00→21:17)
[2019-12-13] MEDS: Aspirin 81 mg Enteric Coated Tablet PO SCH (10:00)
[2019-12-13] MEDS: levETIRAcetam 500 mg/5 ml Oral Solution PO SCH ×2 (10:00→21:18)
[2019-12-13] MEDS: Senokot S 8.6-50 MG TAB PO SCH ×2 (10:01→21:17)
[2019-12-13] MEDS: Polyethylene Glycol 3350 17 GM Packet PO SCH ×2 (10:03→21:18)
[2019-12-13] MEDS: Sacubitril 49 MG/Valsartan 51 MG TABLET PO SCH ×2 (10:13→21:17)
[2019-12-13] MEDS: Atorvastatin Calcium 10 MG TAB PO SCH (21:18)
[2019-12-14] MEDS: Senokot S 8.6-50 MG TAB PO SCH ×2 (08:47→21:50)
[2019-12-14] MEDS: Sacubitril 49 MG/Valsartan 51 MG TABLET PO SCH ×2 (08:47→21:50)
[2019-12-14] MEDS: Aspirin 81 mg Enteric Coated Tablet PO SCH (08:48)
[2019-12-14] MEDS: Famotidine 20 MG TAB PO SCH ×2 (08:48→21:48)
[2019-12-14] MEDS: levETIRAcetam 500 mg/5 ml Oral Solution PO SCH ×2 (08:48→21:48)
[2019-12-14] MEDS: Terazosin HCl 1 MG CAP PO SCH (08:48)
[2019-12-14] MEDS: Carvedilol 3.125 MG TAB PO SCH ×2 (08:48→18:08)
[2019-12-14] MEDS: Polyethylene Glycol 3350 17 GM Packet PO SCH ×2 (08:48→21:49)
--- NOTE | 2019-12-14 10:19 | PDOC.HOSPP ---
- Subjective Encounter Date: 12/14/19 Encounter Time: 08:30 Subjective: not oriented, needs multiple verbal prompts to respond - Objective Vital Signs & Weight: Vital Signs (12 hours) Temp Pulse Resp BP Pulse Ox 12/14/19 08:06 98.8 F 105 H 16 130/84 93 L 12/14/19 04:00 100.9 F H 104 H 18 129/73 92 L Weight Admit Weight 200 lb Weight 186 lb 4.8 oz I&O: 12/13/19 12/14/19 12/15/19 06:59 06:59 06:59 Intake Total 600 Output Total 580 700 Balance -580 -100 Result Diagrams: 12/13/19 04:24 12/13/19 04:24 Hospitalist ROS - Medication Medications: Active Medications Generic Name Dose Route Start Last Admin Trade Name Freq PRN Reason Stop Dose Admin Aspirin 81 mg 12/11/19 09:00 12/14/19 08:48 Ecotrin PO 81 mg DAILY [facility] Administration Atorvastatin Calcium 10 mg 12/02/19 21:00 12/13/19 21:18 Lipitor PO 10 mg HS [facility]ISA Administration Carvedilol 6.25 mg 12/11/19 17:00 12/14/19 08:48 Coreg PO 6.25 mg BID-WM ADAL[facility]ISA Administration Famotidine 20 mg 12/02/19 09:00 12/14/19 08:48 Pepcid PO 20 mg BID [facility] Administration Levetiracetam 500 mg 12/05/19 21:00 12/14/19 08:48 Keppra Oral Solution PO 500 mg BID AD[facility] Administration Polyethylene Glycol 17 gm 12/06/19 21:00 12/14/19 08:48 Miralax PO Not Given BID [facility] Sacubitril/Valsartan 1 tab 12/06/19 09:00 12/14/19 08:47 Entresto 49 Mg-51 Mg Tablet PO 1 tab BID [facility] Administration Senna/Docusate Sodium 2 tab 12/05/19 21:00 12/14/19 08:47 Senokot S PO 2 tab BID [facility] Administration Sodium Chloride 10 ml 12/01/19 23:09 12/10/19 20:14 Flush - Normal Saline IVF 10 ml PRN PRN Administration Saline Flush Terazosin HCl 1 mg 12/04/19 09:00 12/14/19 08:48 Hytrin PO 1 mg DAILY [facility] Administration - Exam General Appearance: ill appearing Eye: PERRL, anicteric sclera ENT: no oropharyngeal lesions, moist mucosa Neck: supple, no JVD Heart: RRR, no murmur Respiratory: no wheezes, no rales Gastrointestinal: soft, non-tender, non-distended, normal bowel sounds Extremities: no cyanosis, no edema Neurological: hemiplegia, speech deficit Hosp A/P (1) Acute CVA (cerebrovascular accident) Code(s): I63.9 - CEREBRAL INFARCTION, UNSPECIFIED Status: Acute (2) Seizure disorder Code(s): G40.909 - EPILEPSY, UNSP, NOT INTRACTABLE, WITHOUT STATUS EPILEPTICUS Status: Chronic (3) Chronic hepatitis Code(s): K73.9 - CHRONIC HEPATITIS, UNSPECIFIED Status: Chronic (4) BPH (benign prostatic hyperplasia) Code(s): N40.0 - BENIGN PROSTATIC HYPERPLASIA WITHOUT LOWER URINRY TRACT SYMP Status: Acute Qualifiers: Lower urinary tract symptom presence: symptoms present Lower urinary tract symptom detail: urinary retention Qualified Code(s): N40.1 - Benign prostatic hyperplasia with lower urinary tract symptoms; R33.8 - Other retention of urine (5) H/O: CVA (cerebrovascular accident) Code(s): Z86.73 - PRSNL HX OF TIA (TIA), AND CEREB INFRC W/O RESID DEFICITS Status: Chronic (6) Acute metabolic encephalopathy Code(s): G93.41 - METABOLIC ENCEPHALOPATHY Status: Acute (7) Cardiomyopathy Code(s): I42.9 - CARDIOMYOPATHY, UNSPECIFIED Status: Acute Qualifiers: Cardiomyopathy type: unspecified Qualified Code(s): I42.9 - Cardiomyopathy , unspecified (8) Expressive aphasia Code(s): R47.01 - APHASIA Status: Acute (9) Physical deconditioning Code(s): R53.81 - OTHER MALAISE Status: Acute (10) Rhabdomyolysis Code(s): M62.82 - RHABDOMYOLYSIS Status: Resolved Qualifiers: Rhabdomyolysis type: non-traumatic Qualified Code(s): M62.82 - Rhabdomyolysis (11) Chronic atrial fibrillation Code(s): I48.20 - CHRONIC ATRIAL FIBRILLATION, UNSPECIFIED Status: Chronic (12) HTN (hypertension) Code(s): I10 - ESSENTIAL (PRIMARY) HYPERTENSION Status: Chronic Qualifiers: Hypertension type: essential hypertension Qualified Code(s): I10 - Essential (primary) hypertension - Plan has new acute left mca infarct with mild hemorrhagic conversion h/o large right mca infarct with encephalomalacia on MRI rhabdomyolysis resolved afib is rate controlled echo showed ef of 25% with severe mitral regurgitation. continue coreg, low dose lipitor, keppra, hytrin he will need watchman's device due to cva with hemorrhagic conversion and risk of bleeding for afib as outpt when more stable life vest is not an option as patient is not oriented to follow instructions. very severe deconditioning, barely able to stand with therapy, needs infirmary has indwelling guillen, needs outpt urology appointment in 2 weeks hemo/neuorstable dc plan anytime to infirmary when its ready
--- NOTE | 2019-12-14 19:51 | PDOC.EVN ---
Event Note - Event Note Event Note: Notified by RN, patient tachypneic with fever, temp 101.3. Concern for aspiration while eating earlier this morning. He required suction of food in his mouth. Sats 91% on RA, 96% on 3L by NC. HR and BP normal. Will obtain CBC/CMP, lactic acid and blood cultures. CXR ordered as well as UA (Has guillen catheter). KS tylenol to be given as he is now NPO.
[2019-12-14] MEDS: Acetaminophen 650 MG Suppository PR PRN (20:05)
[2019-12-14 20:38] LABS: #Lymphocytes 1.4 thou/uL (1.20-3.40); #Monocytes 0.8 thou/uL (0.11-0.59); %Basophils 0.3 % (0.0-1.0); %Eosinophils 0.2 % (0.0-10.0); %Lymphocytes 12.4 % (21.0-51.0); %Monocytes 6.7 % (0.0-10.0); %Neutrophils 80.5 % (42.0-75.0); Hemoglobin 17.1 g/dL (14.0-18.0); Mean Corpuscular HGB CONC 32.1 g/dL (32.0-36.0); Mean Corpuscular Hemoglobin 31.5 pg (27.0-31.0); Mean Corpuscular Volume 98.3 fL (78.0-98.0); Mean Platelet Volume 9.5 fL (7.4-10.4); Platelet Count 166 thou/uL (130-400); RBC Distribution Width 12.1 % (11.5-14.5); Red Blood Cell (RBC) Count 5.44 mill/uL (4.70-6.10); White Blood Cell (WBC) Count 11.2 thou/uL (4.8-10.8)
--- NOTE | 2019-12-14 20:40 | RAD ---
CHEST ONE VIEW: Indications: History of fever and possible aspiration. Comparison: 12-01-2019 FINDINGS: There is persistent moderate cardiomegaly. There are areas of patchy airspace opacity in the left mid lung and right lower lobe which may reflect areas of pneumonia. There are small bilateral pleural eff usions. Neck soft tissue limited evaluation of the lung apices. No definite acute osseous abnormality is noted. IMPRESSION: 1. Patchy airspace opacity in the left midlung and right lower lobe may be sequellae of multifocal pn eumonia. Aspiration cannot be entirely excluded. 2. Moderate cardiomegaly with small bilateral pleural effusion. Component of CHF is not excluded. 3. Continued radiographic follow up is recommended. POS: BH
[2019-12-14 20:52] LABS: Lactic Acid 1.2 mmol/L (0.5-2.2)
[2019-12-14 21:22] LABS: ALT (SGPT) 23 U/L (8-55); AST (SGOT) 41 U/L (5-34); Albumin 3.3 g/dL (3.4-4.8); Alkaline Phosphatase 98 U/L (40-110); Anion Gap 15 mmol/L (10-20); BUN (Urea Nitrogen) 34 mg/dL (8.4-25.7); Bilirubin, Total 0.9 mg/dL (0.2-1.2); Calc. Creatinine Clearance 99 mL/min (70-130); Calcium 9.2 mg/dL (7.8-10.44); Carbon Dioxide 21 mmol/L (23-31); Chloride 113 mmol/L (98-107); Estimated GFR-MDRD 87; Globulin 4.6 g/dL (2.4-3.5); Glucose 116 mg/dL (80-115); Magnesium 2.3 mg/dL (1.6-2.6); Potassium 4.9 mmol/L (3.5-5.1); Protein, Total 7.9 g/dL (5.8-8.1); Sodium 144 mmol/L (136-145)
[2019-12-14] MEDS: Atorvastatin Calcium 10 MG TAB PO SCH (21:48)
[2019-12-14 22:09] LABS: Bacteria/HPF 1+ HPF (None Seen); Bilirubin Negative (Negative); Blood, Urine 1+ (Negative); Clarity Turbid (Clear); Glucose, Urine (Dipstick) Normal (Negative); Leukocyte 500 Leu/uL (Negative); Nitrite 2+ (Negative); Protein, Urine (Dipstick) 300 mg/dL (Neg-Trace); Squamous Epithelial None Seen HPF (0-3); WBC/HPF Greater than 50 HPF (0-3)
[2019-12-14 22:28] LABS: Urine Culture Reflex Yes Yes
[2019-12-15] MEDS: Piperacillin/Tazobactam 3.375 GM in Sodium Chloride 0.9% 100 ML IVPB SCH ×4 (00:45→18:03)
--- NOTE | 2019-12-15 10:02 | PDOC.HOSPP ---
- Subjective Encounter Date: 12/15/19 Encounter Time: 09:45 Subjective: pt up in bed does not talk much. - Objective Vital Signs & Weight: Vital Signs (12 hours) Temp Pulse Resp BP BP Pulse Ox 12/15/19 07:55 99.7 F H 86 15 144/95 H 97 12/15/19 05:40 28 H 95 12/15/19 03:01 97.7 F 94 18 124/83 96 12/14/19 23:42 97.9 F 96 28 H 135/81 96 Weight Admit Weight 200 lb Weight 180 lb 8 oz I&O: 12/14/19 12/15/19 12/16/19 06:59 06:59 06:59 Intake Total 600 320 Output Total 700 450 Balance -100 -130 Result Diagrams: 12/14/19 20:18 12/14/19 20:18 Additional Labs: Accuchecks 12/14/19 19:04 POC Glucose 131 H Hospitalist ROS - Review of Systems Other: unable to obtain - Medication Medications: Active Medications Generic Name Dose Route Start Last Admin Trade Name Freq PRN Reason Stop Dose Admin Acetaminophen 650 mg 12/14/19 19:43 12/14/19 20:05 Tylenol [place] 650 mg Q4H PRN Administration Headache/Fever or Pain Aspirin 81 mg 12/11/19 09:00 12/14/19 08:48 Ecotrin PO 81 mg DAILY ADALGISA Administration Atorvastatin Calcium 10 mg 12/02/19 21:00 12/14/19 21:48 Lipitor PO Not Given HS ADALGISA Carvedilol 6.25 mg 12/11/19 17:00 12/14/19 18:08 Coreg PO 6.25 mg BID-WM ADALGISA Administration Famotidine 20 mg 12/02/19 09:00 12/14/19 21:48 Pepcid PO Not Given BID ADALGISA Piperacillin Sod/Tazobactam 100 mls @ 200 mls/hr 12/14/19 23:00 12/15/19 05: 35 Sod 3.375 gm/ Sodium Chloride IVPB 100 mls 0500,1100,1700,2300 ADALGISA Administration Levetiracetam 500 mg 12/05/19 21:00 12/14/19 21:48 Keppra Oral Solution PO Not Given BID ADALGISA Polyethylene Glycol 17 gm 12/06/19 21:00 12/14/19 21:49 Miralax PO Not Given BID [facility] Sacubitril/Valsartan 1 tab 12/06/19 09:00 12/14/19 21:50 Entresto 49 Mg-51 Mg Tablet PO Not Given BID ADALGISA Senna/Docusate Sodium 2 tab 12/05/19 21:00 12/14/19 21:50 Senokot S PO Not Given BID [facility] Sodium Chloride 10 ml 12/01/19 23:09 12/10/19 20:14 Flush - Normal Saline IVF 10 ml PRN PRN Administration Saline Flush Terazosin HCl 1 mg 12/04/19 09:00 12/14/19 08:48 Hytrin PO 1 mg DAILY [facility] Administration - Exam Heart: negative: RRR, no murmur, no gallops, no rubs, normal peripheral pulses, irregular, diminshed peripheral pulses, murmur present, II/IV, III/IV Respiratory: negative: CTAB, no wheezes, no rales, no ronchi, normal chest expansion, no tachypnea, normal percussion, rales, rhonchi, tachypneic, wheezes Gastrointestinal: negative: soft, non-tender, non-distended, normal bowel sounds , no palpable masses, no hepatomegaly, no splenomegaly, no bruit, no guarding, no rigidity, tender to palpation, distended, diminished bowl sounds, voluntary guarding Psychiatric - other findings: awake and follows commands Hosp A/P - Plan DVT proph w/SCDs Acute CVA with hemorrhagic conversion - on ASA aspiration pna 12/13 Toxic Metabolic Encephalopathy due to CVA Chronic systolic HF EF 25-30% NSVT - BB dose increased Chr Afib - not a anticoag candidate Rhabdomyolysis Obstructive uropathy/Urinary retention - guillen placed 12/04 Seizure disorder HTN Chronic Hep C BPH Dementia Constipation PLAN: Cont ASA Cont Coreg Cont Entresto Not a candidate for lifevest per Cardiology [facility] - stable for dc Cont other meds as above 12/14 will continue zosyn for now. speech to see him again. His cxr appear worse and had a fever last night.
[2019-12-15] MEDS: Famotidine 20 MG TAB PO SCH ×2 (10:41→22:41)
[2019-12-15] MEDS: Terazosin HCl 1 MG CAP PO SCH (10:41)
[2019-12-15] MEDS: Sacubitril 49 MG/Valsartan 51 MG TABLET PO SCH ×2 (10:42→22:41)
[2019-12-15] MEDS: Senokot S 8.6-50 MG TAB PO SCH ×2 (10:42→22:41)
[2019-12-15] MEDS: levETIRAcetam 500 mg/5 ml Oral Solution PO SCH ×3 (10:42→22:56)
[2019-12-15] MEDS: Carvedilol 3.125 MG TAB PO SCH ×2 (10:42→18:06)
[2019-12-15] MEDS: Polyethylene Glycol 3350 17 GM Packet PO SCH ×3 (10:43→22:56)
--- NOTE | 2019-12-15 12:07 | CT ---
NONCONTRAST CT OF THE BRAIN: INDICATION: AMS, recent stroke. FINDINGS: There are evolutionary changes involving acute to subacute left frontal lobe infarct. Small focus of intraparenchymal hemorrhage seen involving the left anterior insular cortex appears slightly less pr onounced. The degree of surrounding cytotoxic edema appears less pronounced. Remote right MCA distr ibution infarct is similar-appearing. Mastoid air cells are clear. Paranasal sinuses are clear. Th e skull is intact. IMPRESSION: 1. Slightly less prominent region of hemorrhagic conversion involving the left anterior insular kailash ex in the left middle cerebral artery distribution infarct. 2. Stable chronic right-sided middle cerebral artery distribution infarct with encephalomalacia. 3. Improving cytotoxic edema of the left middle cerebral artery distribution infarct. POS: BH
[2019-12-15] MEDS: Aspirin 81 mg Enteric Coated Tablet PO SCH (13:26)
[2019-12-15] MEDS: Atorvastatin Calcium 10 MG TAB PO SCH (22:42)
[2019-12-16] MEDS: Piperacillin/Tazobactam 3.375 GM in Sodium Chloride 0.9% 100 ML IVPB SCH ×4 (00:34→17:35)
[2019-12-16] MEDS: Acetaminophen 650 MG Suppository PR PRN ×2 (03:25→08:48)
[2019-12-16] MEDS: Aspirin 81 mg Enteric Coated Tablet PO SCH (08:47)
[2019-12-16] MEDS: levETIRAcetam 500 mg/5 ml Oral Solution PO SCH (08:47)
[2019-12-16] MEDS: Famotidine 20 MG TAB PO SCH ×2 (08:47→21:11)
[2019-12-16] MEDS: Terazosin HCl 1 MG CAP PO SCH (08:47)
[2019-12-16] MEDS: Polyethylene Glycol 3350 17 GM Packet PO SCH ×2 (08:47→21:11)
[2019-12-16] MEDS: Carvedilol 3.125 MG TAB PO SCH ×2 (08:47→17:35)
[2019-12-16] MEDS: Sacubitril 49 MG/Valsartan 51 MG TABLET PO SCH ×2 (08:47→21:12)
[2019-12-16] MEDS: Senokot S 8.6-50 MG TAB PO SCH ×2 (08:47→21:12)
[2019-12-16 09:37] LABS: #Lymphocytes 1.6 thou/uL (1.20-3.40); #Monocytes 0.7 thou/uL (0.11-0.59); %Basophils 0.2 % (0.0-1.0); %Lymphocytes 12.8 % (21.0-51.0); %Monocytes 5.9 % (0.0-10.0); %Neutrophils 81.1 % (42.0-75.0); Hemoglobin 18.1 g/dL (14.0-18.0); Mean Corpuscular HGB CONC 30.9 g/dL (32.0-36.0); Mean Corpuscular Hemoglobin 30.8 pg (27.0-31.0); Mean Corpuscular Volume 99.5 fL (78.0-98.0); Mean Platelet Volume 9.8 fL (7.4-10.4); Platelet Count 143 thou/uL (130-400); RBC Distribution Width 12.5 % (11.5-14.5); Red Blood Cell (RBC) Count 5.87 mill/uL (4.70-6.10); White Blood Cell (WBC) Count 12.3 thou/uL (4.8-10.8)
[2019-12-16 10:10] LABS: ALT (SGPT) 24 U/L (8-55); AST (SGOT) 50 U/L (5-34); Albumin 3.2 g/dL (3.4-4.8); Alkaline Phosphatase 86 U/L (40-110); Anion Gap 16 mmol/L (10-20); BUN (Urea Nitrogen) 47 mg/dL (8.4-25.7); Bilirubin, Total 1.1 mg/dL (0.2-1.2); Calc. Creatinine Clearance 57 mL/min (70-130); Calcium 9.2 mg/dL (7.8-10.44); Carbon Dioxide 19 mmol/L (23-31); Chloride 121 mmol/L (98-107); Estimated GFR-MDRD 48; Globulin 4.6 g/dL (2.4-3.5); Glucose 137 mg/dL (80-115); Potassium 4.3 mmol/L (3.5-5.1); Protein, Total 7.8 g/dL (5.8-8.1); Sodium 152 mmol/L (136-145)
[2019-12-16] MEDS ORDERED: Sodium Chloride 0.9% 500 ML IV SCH (11:30)
[2019-12-16] MEDS ORDERED: Enoxaparin Sodium 40 MG/0.4 ML SYRINGE SC SCH ×2 (11:45→23:00)
[2019-12-16] MEDS: Dextrose 5 %-0.45 % NaCl 1,000 ML IV SCH (12:10)
--- NOTE | 2019-12-16 15:45 | ULT ---
BILATERAL LOWER EXTREMITY VENOUS ULTRASOUND: 12/16/19 COMPARISON: None. HISTORY: Bilateral extremity edema and fever. TECHNIQUE: Multiplanar jansen scale and color Doppler images were obtained in a bilateral lower extremity venous u ltrasound. Spectral analysis of the Doppler waveforms were performed. FINDINGS: There is a fairly large amount of thrombus in the left leg extending from the proximal superficial fe moral vein down to below the knee including the popliteal veins, posterior tibial veins and peroneal veins. There is also thrombus in the left profunda femoral vein. In the right lower extremity, there is thrombus only seen in the popliteal vein. The superficial femoral vein, common femoral and profund a femoral vein are patent on the right. IMPRESSION: Positive bilateral lower extremity DVT. POS: EAA
--- NOTE | 2019-12-16 16:02 | PDOC.HOSPP ---
- Subjective Encounter Date: 12/16/19 Encounter Time: 09:00 Subjective: pt up in bed appears drowsy but arousable. - Objective Vital Signs & Weight: Vital Signs (12 hours) Temp Pulse Pulse Pulse Resp BP BP 12/16/19 15:46 98.4 F 89 20 12/16/19 11:46 98.5 F 68 12/16/19 09:10 58 L 90 105/69 100/74 12/16/19 08:00 101.5 F H 60 12/16/19 05:30 98.6 F BP 12/16/19 15:46 92/63 12/16/19 11:46 85/57 L 12/16/19 09:10 12/16/19 08:00 108/75 12/16/19 05:30 Weight Admit Weight 200 lb Weight 180 lb 8 oz I&O: 12/15/19 12/16/19 12/17/19 06:59 06:59 06:59 Intake Total 320 470 Output Total 450 1350 Balance -130 -880 Result Diagrams: 12/16/19 09:30 12/16/19 09:30 Additional Labs: Accuchecks 12/15/19 16:04 POC Glucose 108 Hospitalist ROS - Review of Systems Other: unable to obtain - Medication Medications: Active Medications Generic Name Dose Route Start Last Admin Trade Name Freq PRN Reason Stop Dose Admin Acetaminophen 650 mg 12/14/19 19:43 12/16/19 08:48 Tylenol [place] 650 mg Q4H PRN Administration Headache/Fever or Pain Aspirin 81 mg 12/11/19 09:00 12/16/19 08:47 Ecotrin PO 81 mg DAILY ADALGISA Administration Atorvastatin Calcium 10 mg 12/02/19 21:00 12/15/19 22:42 Lipitor PO 10 mg HS ADALGISA Administration Carvedilol 6.25 mg 12/11/19 17:00 12/16/19 08:47 Coreg PO 6.25 mg BID-WM ADALGISA Administration Famotidine 20 mg 12/02/19 09:00 12/16/19 08:47 Pepcid PO 20 mg BID ADALGISA Administration Piperacillin Sod/Tazobactam 100 mls @ 200 mls/hr 12/14/19 23:00 12/16/19 12: 10 Sod 3.375 gm/ Sodium Chloride IVPB 100 mls 0500,1100,1700,2300 ADALGISA Administration Dextrose/Sodium Chloride 1,000 mls @ 100 mls/hr 12/16/19 11:30 12/16/19 12:10 D5 1/2 Ns IV 1,000 mls .Q10H ADALGISA Administration Polyethylene Glycol 17 gm 12/06/19 21:00 12/16/19 08:47 Miralax PO 17 gm BID ADALGISA Administration Sacubitril/Valsartan 1 tab 12/06/19 09:00 12/16/19 08:47 Entresto 49 Mg-51 Mg Tablet PO 1 tab BID ADALGISA Administration Senna/Docusate Sodium 2 tab 12/05/19 21:00 12/16/19 08:47 Senokot S PO 2 tab BID ADALGISA Administration Sodium Chloride 10 ml 12/01/19 23:09 12/10/19 20:14 Flush - Normal Saline IVF 10 ml PRN PRN Administration Saline Flush Terazosin HCl 1 mg 12/04/19 09:00 12/16/19 08:47 Hytrin PO 1 mg DAILY ADALGISA Administration - Exam Neck: negative: supple, symmetric, no JVD, no thyromegaly, no lymphadenopathy, no carotid bruit, JVD Heart: negative: RRR, no murmur, no gallops, no rubs, normal peripheral pulses, irregular, diminshed peripheral pulses, murmur present, II/IV, III/IV Respiratory: negative: CTAB, no wheezes, no rales, no ronchi, normal chest expansion, no tachypnea, normal percussion, rales, rhonchi, tachypneic, wheezes Gastrointestinal: negative: soft, non-tender, non-distended, normal bowel sounds , no palpable masses, no hepatomegaly, no splenomegaly, no bruit, no guarding, no rigidity, tender to palpation, distended, diminished bowl sounds, voluntary guarding Hosp A/P - Plan DVT proph w/SCDs Acute CVA with hemorrhagic conversion - on ASA aspiration pna 12/13 Toxic Metabolic Encephalopathy due to CVA Chronic systolic HF EF 25-30% NSVT - BB dose increased Chr Afib - not a anticoag candidate Rhabdomyolysis Obstructive uropathy/Urinary retention - guillen placed 12/04 Seizure disorder HTN Chronic Hep C BPH Dementia Constipation PLAN: Cont ASA Cont Coreg Cont Entresto Not a candidate for lifevest per Cardiology AICD eval as outpt [facility] bed - stable for dc Cont other meds as above 12/14 will continue zosyn for now. speech to see him again. His cxr appear worse and had a fever last night. 12/15 will order Doppler to rule out dvt, pt is having fever on zosyn. speech will do a modified barium on her in am. will get palliative to see him pippa for advance directive.
--- NOTE | 2019-12-16 17:07 | PDOC.EVN ---
Event Note - Event Note Event Note: pt has dvt, spoke with neurology if ok to start AC given his large stroke with hemorrhagic conversion. will give half dose now check ct brain in am if negative will start pt on full dose of AC.
[2019-12-16] MEDS ORDERED: Enoxaparin Sodium 80 MG/0.8 ML SYRINGE SC SCH (21:00)
[2019-12-16] MEDS: Atorvastatin Calcium 10 MG TAB PO SCH (21:11)
[2019-12-17] MEDS: Piperacillin/Tazobactam 3.375 GM in Sodium Chloride 0.9% 100 ML IVPB SCH ×5 (00:29→23:28)
[2019-12-17] MEDS: Dextrose 5 %-0.45 % NaCl 1,000 ML IV SCH ×4 (00:37→17:10)
[2019-12-17 05:10] LABS: Hemoglobin 16.7 g/dL (14.0-18.0); Platelet Count 134 thou/uL (130-400)
--- NOTE | 2019-12-17 08:26 | CT ---
CT head noncontrast HISTORY: CVA. Follow-up. COMPARISON: 12/14/2019 and 11/23/2019. FINDINGS: Wedge-shaped low density defect at the left inferior frontal lobe is similar in appearance to the prior exam. No acute hemorrhage is evident. Encephalomalacia at the right frontotemporal lobe consistent with an old area of infarct is also stab le. There is no mass effect. Ventricles are unremarkable. Mild diffuse cortical atrophy. Visualized paranasal sinuses remain well aerated. IMPRESSION : Stable radiographic appearance of the acute left MCA infarct and old right MCA infarct. No hemorrhage or other acute process evident.
[2019-12-17] MEDS ORDERED: Enoxaparin Sodium 40 MG/0.4 ML SYRINGE SC SCH (09:00)
[2019-12-17] MEDS: Carvedilol 3.125 MG TAB PO SCH ×2 (09:31→17:10)
[2019-12-17] MEDS: Aspirin 81 mg Enteric Coated Tablet PO SCH (09:32)
[2019-12-17] MEDS: Sacubitril 49 MG/Valsartan 51 MG TABLET PO SCH ×2 (09:32→21:16)
[2019-12-17] MEDS: Terazosin HCl 1 MG CAP PO SCH (09:32)
[2019-12-17] MEDS: Senokot S 8.6-50 MG TAB PO SCH ×2 (09:32→21:16)
[2019-12-17] MEDS: Polyethylene Glycol 3350 17 GM Packet PO SCH ×2 (09:32→21:15)
[2019-12-17] MEDS: Famotidine 20 MG TAB PO SCH (09:32)
[2019-12-17 10:30] LABS: Hemoglobin 16.5 g/dL (14.0-18.0); Platelet Count 130 thou/uL (130-400)
[2019-12-17] MEDS: Heparin 10,000 UNITS/ 10 ML VIAL SLOW IVP SCH (11:14)
[2019-12-17] MEDS: Heparin 25,000 units/D5W 500 ML IVPB SCH (11:17)
--- NOTE | 2019-12-17 11:55 | PDOC.HOSPP ---
- Subjective Encounter Date: 12/17/19 Encounter Time: 10:00 Subjective: awakens to touch, is not oriented awaiting modifide barium swallow today - Objective Vital Signs & Weight: Vital Signs (12 hours) Temp Pulse Resp BP Pulse Ox 12/17/19 11:19 98.8 F 110 H 18 102/77 95 12/17/19 07:40 95 12/17/19 07:35 99.9 F H 95 24 H 92/58 L 95 12/17/19 03:40 99.3 F 92 18 107/72 96 Weight Admit Weight 200 lb Weight 183 lb I&O: 12/16/19 12/17/19 12/18/19 06:59 06:59 06:59 Intake Total 470 2500 Output Total 1350 800 Balance -880 1700 Result Diagrams: 12/17/19 10:11 12/17/19 05:02 Hospitalist ROS - Medication Medications: Active Medications Generic Name Dose Route Start Last Admin Trade Name Freq PRN Reason Stop Dose Admin Acetaminophen 650 mg 12/14/19 19:43 12/16/19 08:48 Tylenol [place] 650 mg Q4H PRN Administration Headache/Fever or Pain Aspirin 81 mg 12/11/19 09:00 12/17/19 09:32 Ecotrin PO Not Given DAILY [facility] Atorvastatin Calcium 10 mg 12/02/19 21:00 12/16/19 21:11 Lipitor PO Not Given [facility] Carvedilol 6.25 mg 12/11/19 17:00 12/17/19 09:31 Coreg PO Not Given BID-WM [facility] Famotidine 20 mg 12/17/19 09:00 12/17/19 09:32 Pepcid PO Not Given DAILY [facility] Heparin Sodium (Porcine) 0 units 12/17/19 10:00 12/17/19 11:14 Heparin 1,000 Units/Ml (10 Ml) SLOW IVP 6.6 ml ASDIR ADALGISA Administration Protocol Piperacillin Sod/Tazobactam 100 mls @ 200 mls/hr 12/14/19 23:00 12/17/19 11: 31 Sod 3.375 gm/ Sodium Chloride IVPB 100 mls 0500,1100,1700,2300 ADALGISA Administration Dextrose/Sodium Chloride 1,000 mls @ 100 mls/hr 12/16/19 11:30 12/17/19 09:31 D5 1/2 Ns IV Not Given .Q10H ADALGISA Levetiracetam 500 mg/ Device 100 mls @ 200 mls/hr 12/16/19 21:00 12/17/19 10: 03 IVPB 100 mls BID ADALGISA Administration Heparin Sodium/Dextrose 500 mls @ 0 mls/hr 12/17/19 10:00 12/17/19 11:17 Heparin 25,000 Units/D5w IVPB 500 mls INF ADALGISA Administration Protocol Per Protocol Polyethylene Glycol 17 gm 12/06/19 21:00 12/17/19 09:32 Miralax PO Not Given BID ADALGISA Sacubitril/Valsartan 1 tab 12/06/19 09:00 12/17/19 09:32 Entresto 49 Mg-51 Mg Tablet PO Not Given BID ADALGISA Senna/Docusate Sodium 2 tab 12/05/19 21:00 12/17/19 09:32 Senokot S PO Not Given BID ADALGISA Sodium Chloride 10 ml 12/01/19 23:09 12/10/19 20:14 Flush - Normal Saline IVF 10 ml PRN PRN Administration Saline Flush Terazosin HCl 1 mg 12/04/19 09:00 12/17/19 09:32 Hytrin PO Not Given DAILY ADALGISA - Exam General Appearance: ill appearing Eye: anicteric sclera ENT: no oropharyngeal lesions, dry oral mucosa Neck: supple, no JVD Heart: RRR, no murmur Respiratory: no wheezes, no rales, rhonchi Gastrointestinal: soft, non-tender, non-distended, normal bowel sounds Extremities: no cyanosis, 1+ LE edema Neurological: hemiplegia, speech deficit Hosp A/P (1) Acute CVA (cerebrovascular accident) Code(s): I63.9 - CEREBRAL INFARCTION, UNSPECIFIED Status: Acute (2) Seizure disorder Code(s): G40.909 - EPILEPSY, UNSP, NOT INTRACTABLE, WITHOUT STATUS EPILEPTICUS Status: Chronic (3) Chronic hepatitis Code(s): K73.9 - CHRONIC HEPATITIS, UNSPECIFIED Status: Chronic (4) BPH (benign prostatic hyperplasia) Code(s): N40.0 - BENIGN PROSTATIC HYPERPLASIA WITHOUT LOWER URINRY TRACT SYMP Status: Acute Qualifiers: Lower urinary tract symptom presence: symptoms present Lower urinary tract symptom detail: urinary retention Qualified Code(s): N40.1 - Benign prostatic hyperplasia with lower urinary tract symptoms; R33.8 - Other retention of urine (5) H/O: CVA (cerebrovascular accident) Code(s): Z86.73 - PRSNL HX OF TIA (TIA), AND CEREB INFRC W/O RESID DEFICITS Status: Chronic (6) Acute metabolic encephalopathy Code(s): G93.41 - METABOLIC ENCEPHALOPATHY Status: Acute (7) Cardiomyopathy Code(s): I42.9 - CARDIOMYOPATHY, UNSPECIFIED Status: Acute Qualifiers: Cardiomyopathy type: unspecified Qualified Code(s): I42.9 - Cardiomyopathy , unspecified (8) Expressive aphasia Code(s): R47.01 - APHASIA Status: Acute (9) Physical deconditioning Code(s): R53.81 - OTHER MALAISE Status: Acute (10) Rhabdomyolysis Code(s): M62.82 - RHABDOMYOLYSIS Status: Resolved Qualifiers: Rhabdomyolysis type: non-traumatic Qualified Code(s): M62.82 - Rhabdomyolysis (11) Chronic atrial fibrillation Code(s): I48.20 - CHRONIC ATRIAL FIBRILLATION, UNSPECIFIED Status: Chronic (12) HTN (hypertension) Code(s): I10 - ESSENTIAL (PRIMARY) HYPERTENSION Status: Chronic Qualifiers: Hypertension type: essential hypertension Qualified Code(s): I10 - Essential (primary) hypertension (13) DVT (deep venous thrombosis) Code(s): I82.409 - ACUTE EMBOLISM AND THOMBOS UNSP DEEP VN UNSP LOWER EXTREMITY Status: Acute Qualifiers: DVT location: lower extremity Chronicity: acute Laterality: bilateral (14) Aspiration pneumonia Code(s): J69.0 - PNEUMONITIS DUE TO INHALATION OF FOOD AND VOMIT Status: Acute Qualifiers: Aspiration pneumonia type: due to regurgitated food Laterality: bilateral Lung location: lower lobe of lung Qualified Code(s): J69.0 - Pneumonitis due to inhalation of food and vomit (15) LYNN (acute kidney injury) Code(s): N17.9 - ACUTE KIDNEY FAILURE, UNSPECIFIED Status: Acute - Plan has new acute left mca infarct with right hemiparesis, aphasia and dysphagia new b/l dvt, on heparin drip is on zosyn, iv fluids watch for renal function will likely need peg tube for nutrition and medications h/o large right mca infarct with encephalomalacia on MRI rhabdomyolysis resolved afib is rate controlled echo showed ef of 25% with severe mitral regurgitation. continue coreg, low dose lipitor, keppra, hytrin will add coumadin once procedures are completed life vest is not an option as patient is not oriented to follow instructions. very severe deconditioning, barely able to stand with therapy, needs infirmary has indwelling guillen, needs outpt urology appointment in 2 weeks hemo/neuorstable awaiting infirmary bed
--- NOTE | 2019-12-17 13:06 | PDOC.PALPN ---
Palliative Progress Note - Subjective Pronounced weakness, lists to left. Primarily asphagic, mumbles but not able to discern the meaning. - Objective Vital Signs: Vital Signs - Most Recent Temp Pulse Resp BP Pulse Ox 98.8 F 110 H 18 102/77 95 12/17/19 11:19 12/17/19 11:19 12/17/19 11:19 12/17/19 11:19 12/17/19 11:19 - Physical Exam Constitutional: encephalitic, ill appearing HEENT: moist MMs, sclera anicteric Respiratory: unlabored breathing Cardiovascular: irregular Gastrointestinal: soft, non-tender, positive bowel sounds Genitourinary: guillen catheter Musculoskeletal: edema present, diffuse muscle atrophy Neurology: hemiplegia Skin: cap refill <2 seconds Deviation from normal: unable to assess orientation - Assessment (1) Palliative care encounter Code(s): Z51.5 - ENCOUNTER FOR PALLIATIVE CARE Current Visit: Yes Status: Acute (2) Physical deconditioning Code(s): R53.81 - OTHER MALAISE Current Visit: Yes Status: Acute (3) Acute CVA (cerebrovascular accident) Code(s): I63.9 - CEREBRAL INFARCTION, UNSPECIFIED Current Visit: Yes Status : Acute (4) Chronic atrial fibrillation Code(s): I48.20 - CHRONIC ATRIAL FIBRILLATION, UNSPECIFIED Current Visit: Yes Status: Chronic - Plan Plan: Spoke with Karen at [facility] and discussed Mr Saini. She confirmed that any change from full resuscitation status would be between two physicians at admitting facility. She then referred me to medical review for consideration of PEG that we were inquiring about depending on findings of modified barium swallow. Spoke with Marie with medical review at [facility], states that PEG is covered and only requirement is consent obtianed between two physicians at admitting facility. Communicated with Dr Ackerman and Isabel Siddiqi at [facility] [phone] Utilization Review [60] minutes spent on this encounter with >50% of the time in counseling and coordination of care. - ROS Non Response: due to mental status
--- NOTE | 2019-12-17 13:27 | CON ---
DATE OF CONSULTATION: 12/17/2019 CHIEF COMPLAINT: "Can't swallow." HISTORY OF PRESENT ILLNESS: Mr. Saini is a 64-year-old man who is a [facility] inmate, who was admitted with hemorrhagic stroke. He has had some trouble swallowing after that. He had a repeat CT scan of his brain today that did not show further hemorrhage. He had an ultrasound of his lower extremities last night, that showed extensive lower extremity DVTs and he is being started on a heparin drip for that now. He has not been eating much by mouth, and GI was consulted to evaluate for a gastrostomy tube placement. He is going down for a modified barium swallow this afternoon. The patient is unable to communicate his history otherwise. He will squeeze my fingers on command and he seems to try to answer when I asked him his name, but it appears that he likely has a dysarthria and it is difficult to tell if he truly has altered mental status at this point. PAST MEDICAL HISTORY: 1. Hypertension. 2. Chronic hepatitis C. 3. Atrial fibrillation. 4. Dementia. 5. BPH. 6. Degenerative joint disease. 7. History of stroke in the past with hemorrhage. PAST SURGICAL HISTORY: Not known. FAMILY HISTORY: Unobtainable due to his inability to communicate. SOCIAL HISTORY: No alcohol, tobacco, or drugs known. He is currently a [facility] inmate. ALLERGIES: NO KNOWN DRUG ALLERGIES. CURRENT MEDICATIONS: Include: 1. Aspirin. 2. Famotidine. 3. Labetalol. 4. Levetiracetam. 5. Zosyn. 6. MiraLAX scheduled twice daily. 7. Senna. 8. Terazosin. 9. He has been started on a heparin drip. REVIEW OF SYSTEMS: Unobtainable due to his inability to communicate. PHYSICAL EXAMINATION: VITAL SIGNS: Temperature 98.8, pulse 95 to 110, blood pressure 102/77. He did have temperature yesterday at 101.5 at 8 a.m. GENERAL: He seems to attempt to answer his name when I asked him, but he has an apparent dysarthria. Otherwise, he will squeeze my fingers bilaterally on command. I am unable to communicate with him otherwise. HEENT: His eyes have no scleral icterus. Oropharynx is clear without lesions. No cervical or supraclavicular lymphadenopathy. LUNGS: Clear to auscultation bilaterally. HEART: Regular rate and rhythm without murmur. ABDOMEN: Soft, nontender, and nondistended. Bowel sounds are present. He has no scars over the left upper quadrant. EXTREMITIES: Trace lower extremity edema with imprints from his restraints. LABORATORY DATA: White blood cell count 12.3 yesterday, hemoglobin 16.5, and platelets 143. INR 1.2. Creatinine 2.40 up from 1.48 yesterday up from 0.8 on 12/14/2019, sodium 152, potassium 4.3, chloride 121, CO2 of 19, BUN 37, bilirubin 1.1, AST 50, ALT 24, alkaline phosphatase 86, and albumin 3.2. He had a COVID test, that was negative. IMPRESSION: 1. Hemorrhagic stroke with dysarthria and dysphagia. He is going for modified barium swallow today. GI has been consulted for percutaneous endoscopic gastrostomy tube placement if he fails his barium swallow. 2. Acute renal failure. 3. Hypernatremia. 4. History of chronic hepatitis C. 5. Acute bilateral deep vein thromboses, for which he is being started on a heparin drip. CT scan of the brain reportedly shows no further active bleeding. RECOMMENDATIONS: 1. We will await the results of the modified barium swallow today. 2. IV fluid management regarding the acute renal failure and hypernatremia per the primary service. 3. If he fails the modified barium swallow, then we can proceed with gastrostomy tube placement after consent is obtained. He can be fed with an NG tube in the meantime if necessary. 4. He is currently on broad-spectrum antibiotics in light of a fever yesterday and question of silent aspiration. Job ID: [id number]
--- NOTE | 2019-12-17 14:55 | RAD ---
Modified barium swallow HISTORY: Dysphagia. Feeding difficulties. FINDINGS: Exam was performed in conjunction with speech therapy with multiple consistencies. Video review is available and demonstrates early spill of contrast with multiple consistencies. Deep penetration with multiple consistencies. Aspiration was evident on one occasion with delayed coughing by the patient. Partial clearance upon secondary swallowing. Significant pooling within the valleculae and piriform s inuses. With thicker materials, the patient refused to swallow, only moving the contrast around the bowel. The esophagus below the level of the hypopharynx was not evaluated. Please see separate detailed repo rt from speech pathology.
[2019-12-17 17:01] LABS: PTT 140.1 SEC (22.9-36.1)
[2019-12-17] MEDS: Atorvastatin Calcium 10 MG TAB PO SCH (21:15)
[2019-12-18] MEDS: Piperacillin/Tazobactam 3.375 GM in Sodium Chloride 0.9% 100 ML IVPB SCH ×3 (05:06→17:01)
[2019-12-18] MEDS: Dextrose 5 %-0.45 % NaCl 1,000 ML IV SCH ×2 (05:22→16:00)
[2019-12-18] MEDS ORDERED: Sodium Chloride 0.9% 0 ML ONE ×2 (11:30→11:40)
[2019-12-18] MEDS ORDERED: Piperacillin/Tazobactam 3.375 GM VIAL ONE (11:30)
[2019-12-18] MEDS ORDERED: PHENYLEPHRINE-NS 100 MCG/ML 10 ML SYRINGE ONE ×2 (11:41→13:34)
[2019-12-18] MEDS ORDERED: PROPOFOL 200 MG/20 ML VIAL ONE (11:41)
--- NOTE | 2019-12-18 12:14 | PDOC.HOSPP ---
- Subjective Encounter Date: 12/18/19 Encounter Time: 10:50 Subjective: awakens, follows some verbal stimuli but mostly no not in distress, is npo - Objective Vital Signs & Weight: Vital Signs (12 hours) Temp Pulse Resp BP Pulse Ox 12/18/19 09:40 96 12/18/19 07:34 98.8 F 83 18 127/73 96 12/18/19 06:58 96 12/18/19 04:00 97.5 F L 92 18 96 Weight Admit Weight 200 lb Weight 183 lb I&O: 12/17/19 12/18/19 12/19/19 06:59 06:59 06:59 Intake Total 2500 2550 Output Total 800 1250 Balance 1700 1300 Result Diagrams: 12/17/19 10:11 12/17/19 05:02 Hospitalist ROS - Medication Medications: Active Medications Generic Name Dose Route Start Last Admin Trade Name Freq PRN Reason Stop Dose Admin Acetaminophen 650 mg 12/14/19 19:43 12/16/19 08:48 Tylenol MS 650 mg Q4H PRN Administration Headache/Fever or Pain Aspirin 81 mg 12/11/19 09:00 12/17/19 09:32 Ecotrin PO Not Given DAILY [facility] Atorvastatin Calcium 10 mg 12/02/19 21:00 12/17/19 21:15 Lipitor PO Not Given HS [facility] Carvedilol 6.25 mg 12/11/19 17:00 12/17/19 17:10 Coreg PO Not Given BID-WM [facility] Famotidine 20 mg 12/17/19 09:00 12/17/19 09:32 Pepcid PO Not Given DAILY [facility] Heparin Sodium (Porcine) 0 units 12/17/19 10:00 12/17/19 11:14 Heparin 1,000 Units/Ml (10 Ml) SLOW IVP 6.6 ml ASDIR ADALGISA Administration Protocol Piperacillin Sod/Tazobactam 100 mls @ 200 mls/hr 12/14/19 23:00 12/18/19 05: 06 Sod 3.375 gm/ Sodium Chloride IVPB 100 mls 0500,1100,1700,2300 ADALGISA Administration Dextrose/Sodium Chloride 1,000 mls @ 100 mls/hr 12/16/19 11:30 12/18/19 05:22 D5 1/2 Ns IV 1,000 mls .Q10H ADALGISA Administration Levetiracetam 500 mg/ Device 100 mls @ 200 mls/hr 12/16/19 21:00 12/18/19 09: 43 IVPB 100 mls BID ADALGISA Administration Heparin Sodium/Dextrose 500 mls @ 0 mls/hr 12/17/19 10:00 12/17/19 11:17 Heparin 25,000 Units/D5w IVPB 500 mls INF ADALGISA Administration Protocol Per Protocol Polyethylene Glycol 17 gm 12/06/19 21:00 12/17/19 21:15 Miralax PO Not Given BID ADALGISA Senna/Docusate Sodium 2 tab 12/05/19 21:00 12/17/19 21:16 Senokot S PO Not Given BID ADALGISA Sodium Chloride 10 ml 12/01/19 23:09 12/10/19 20:14 Flush - Normal Saline IVF 10 ml PRN PRN Administration Saline Flush Terazosin HCl 1 mg 12/04/19 09:00 12/17/19 09:32 Hytrin PO Not Given DAILY ADALGISA - Exam General Appearance: ill appearing Eye: PERRL, anicteric sclera ENT: no oropharyngeal lesions, dry oral mucosa Neck: supple, no JVD Heart: RRR, no murmur Respiratory: no wheezes, no rales, rhonchi Gastrointestinal: soft, non-tender, non-distended, normal bowel sounds Extremities: no cyanosis, 1+ LE edema Neurological: hemiplegia, speech deficit Hosp A/P (1) Acute CVA (cerebrovascular accident) Code(s): I63.9 - CEREBRAL INFARCTION, UNSPECIFIED Status: Acute (2) Seizure disorder Code(s): G40.909 - EPILEPSY, UNSP, NOT INTRACTABLE, WITHOUT STATUS EPILEPTICUS Status: Chronic (3) Chronic hepatitis Code(s): K73.9 - CHRONIC HEPATITIS, UNSPECIFIED Status: Chronic (4) BPH (benign prostatic hyperplasia) Code(s): N40.0 - BENIGN PROSTATIC HYPERPLASIA WITHOUT LOWER URINRY TRACT SYMP Status: Acute Qualifiers: Lower urinary tract symptom presence: symptoms present Lower urinary tract symptom detail: urinary retention Qualified Code(s): N40.1 - Benign prostatic hyperplasia with lower urinary tract symptoms; R33.8 - Other retention of urine (5) H/O: CVA (cerebrovascular accident) Code(s): Z86.73 - PRSNL HX OF TIA (TIA), AND CEREB INFRC W/O RESID DEFICITS Status: Chronic (6) Acute metabolic encephalopathy Code(s): G93.41 - METABOLIC ENCEPHALOPATHY Status: Acute (7) Cardiomyopathy Code(s): I42.9 - CARDIOMYOPATHY, UNSPECIFIED Status: Acute Qualifiers: Cardiomyopathy type: unspecified Qualified Code(s): I42.9 - Cardiomyopathy , unspecified (8) Expressive aphasia Code(s): R47.01 - APHASIA Status: Acute (9) Physical deconditioning Code(s): R53.81 - OTHER MALAISE Status: Acute (10) Rhabdomyolysis Code(s): M62.82 - RHABDOMYOLYSIS Status: Resolved Qualifiers: Rhabdomyolysis type: non-traumatic Qualified Code(s): M62.82 - Rhabdomyolysis (11) Chronic atrial fibrillation Code(s): I48.20 - CHRONIC ATRIAL FIBRILLATION, UNSPECIFIED Status: Chronic (12) HTN (hypertension) Code(s): I10 - ESSENTIAL (PRIMARY) HYPERTENSION Status: Chronic Qualifiers: Hypertension type: essential hypertension Qualified Code(s): I10 - Essential (primary) hypertension (13) DVT (deep venous thrombosis) Code(s): I82.409 - ACUTE EMBOLISM AND THOMBOS UNSP DEEP VN UNSP LOWER EXTREMITY Status: Acute Qualifiers: DVT location: lower extremity Chronicity: acute Laterality: bilateral (14) Aspiration pneumonia Code(s): J69.0 - PNEUMONITIS DUE TO INHALATION OF FOOD AND VOMIT Status: Acute Qualifiers: Aspiration pneumonia type: due to regurgitated food Laterality: bilateral Lung location: lower lobe of lung Qualified Code(s): J69.0 - Pneumonitis due to inhalation of food and vomit (15) LYNN (acute kidney injury) Code(s): N17.9 - ACUTE KIDNEY FAILURE, UNSPECIFIED Status: Acute - Plan has new acute left mca infarct with right hemiparesis, aphasia and dysphagia new b/l dvt, on heparin drip held for peg tube today is on zosyn, iv fluids watch for renal function, labs today needs peg tube for nutrition and medications h/o large right mca infarct with encephalomalacia on MRI rhabdomyolysis resolved afib is rate controlled echo showed ef of 25% with severe mitral regurgitation. continue coreg, low dose lipitor, keppra, hytrin, off entresto due to lynn will add coumadin once procedures are completed life vest is not an option as patient is not oriented to follow instructions. very severe deconditioning, barely able to stand with therapy, needs [facility]elling guillen, needs outpt urology appointment in 2 weeks hemo/neuorstable awaiting [facility] bed
[2019-12-18] MEDS: Aspirin 81 mg Enteric Coated Tablet PO SCH (12:44)
[2019-12-18] MEDS: Senokot S 8.6-50 MG TAB PO SCH ×2 (12:44→23:25)
[2019-12-18] MEDS: Polyethylene Glycol 3350 17 GM Packet PO SCH ×2 (12:44→23:25)
[2019-12-18] MEDS: Carvedilol 3.125 MG TAB PO SCH ×3 (12:44→17:28)
[2019-12-18] MEDS: Famotidine 20 MG TAB PO SCH (12:44)
[2019-12-18] MEDS: Terazosin HCl 1 MG CAP PO SCH (12:45)
[2019-12-18] MEDS: Sacubitril 49 MG/Valsartan 51 MG TABLET PO SCH (12:45)
[2019-12-18 14:24] LABS: #Eosinphils 0.1 thou/uL (0.0-0.7); #Lymphocytes 1.4 thou/uL (1.20-3.40); #Monocytes 0.6 thou/uL (0.11-0.59); #Neutrophils 8.1 thou/uL (1.40-6.50); %Basophils 0.1 % (0.0-1.0); %Eosinophils 0.5 % (0.0-10.0); %Lymphocytes 13.6 % (21.0-51.0); %Monocytes 5.7 % (0.0-10.0); %Neutrophils 80.1 % (42.0-75.0); Hemoglobin 16.6 g/dL (14.0-18.0); Mean Corpuscular HGB CONC 31.1 g/dL (32.0-36.0); Mean Corpuscular Hemoglobin 31.6 pg (27.0-31.0); Platelet Count 126 thou/uL (130-400); RBC Distribution Width 12.4 % (11.5-14.5); Red Blood Cell (RBC) Count 5.26 mill/uL (4.70-6.10); White Blood Cell (WBC) Count 10.1 thou/uL (4.8-10.8)
[2019-12-18 14:30] LABS: INR-International Normal Ratio 1.3; PTT 26.9 SEC (22.9-36.1); Prothrombin Time 15.8 sec (12.0-14.7)
[2019-12-18 14:46] LABS: Anion Gap 15 mmol/L (10-20); BUN (Urea Nitrogen) 74 mg/dL (8.4-25.7); Calc. Creatinine Clearance 31 mL/min (70-130); Calcium 8.2 mg/dL (7.8-10.44); Carbon Dioxide 17 mmol/L (23-31); Estimated GFR-MDRD 23; Glucose 107 mg/dL (80-115); Potassium 3.9 mmol/L (3.5-5.1); Sodium 155 mmol/L (136-145)
[2019-12-18 14:52] LABS: Chloride 127 mmol/L (98-107)
[2019-12-18 17:54] LABS: Hemoglobin 16.4 g/dL (14.0-18.0); Platelet Count 130 thou/uL (130-400)
[2019-12-18] MEDS: Heparin 25,000 units/D5W 500 ML IVPB SCH (19:28)
--- NOTE | 2019-12-18 20:04 | OP ---
DATE OF PROCEDURE: 12/18/2019 PROCEDURE PERFORMED: Esophagogastroduodenoscopy with NG tube placement and aborted PEG tube placement. PREOPERATIVE DIAGNOSIS: Oropharyngeal dysphagia secondary to stroke. DESCRIPTION OF PROCEDURE: Informed consent was obtained. The patient was sedated with total intravenous anesthesia. The bite block was placed and the endoscope was advanced easily to the second portion of the duodenum and retroflexion was performed in the stomach. The esophagus was normal. There was a 4 cm hiatal hernia present. The stomach was normal otherwise including retroflexed views. The pylorus and first and second portions of the duodenum were normal. The stomach was fully insufflated, and the appropriate site underneath the left ribs was palpated. There was good one-to-one motion with digital palpation, however, transillumination could not be adequately achieved. The skin was anesthetized with 1% lidocaine. The skin was sterilized with chlorhexidine. The 22-gauge 1.5 inch needle was inserted to the hub and the tip of the needle did protrude through into the stomach lumen. However, this takes pressure to apply and when the needle was let up, the stomach pulled away from the tip of the needle. This indicates that there could be potential for bowel pinched in between the abdominal wall and stomach preventing transillumination and the stomach pulling away from the finding needle. His abdominal wall is not that thick and therefore we did not proceed with gastrostomy placement. Air was suctioned from the stomach and the NG tube was then placed. The NG tube was verified to have passed on beyond the hiatal hernia with the endoscope. IMPRESSION: 1. 4 cm hiatal hernia. 2. Otherwise normal EGD. 3. Aborted percutaneous endoscopic gastrostomy tube. There was good one-to-one palpation, however, inadequate transillumination and the stomach pulled away from the tip of the 1.5 inch 22-gauge needle with the lidocaine. Gastrostomy tube was aborted to avoid potential bowel injury. 4. NG tube was placed beyond the hiatal hernia. RECOMMENDATIONS: 1. Consult General Surgery to consider gastrostomy. 2. NG tube feeds can be started in the meantime. 3. CT scan of the abdomen and pelvis to help delineate the anatomy. The patient does have a scar in his left lower quadrant of undetermined origin. Job ID: [id number]
[2019-12-18] MEDS: Heparin 10,000 UNITS/ 10 ML VIAL SLOW IVP SCH (20:53)
[2019-12-18] MEDS: Atorvastatin Calcium 10 MG TAB PO SCH (23:25)
[2019-12-19] MEDS: Dextrose 5 %-0.45 % NaCl 1,000 ML IV SCH
[2019-12-19] MEDS: Piperacillin/Tazobactam 3.375 GM in Sodium Chloride 0.9% 100 ML IVPB SCH ×2 (01:19→05:56)
--- NOTE | 2019-12-19 02:13 | CON ---
DATE OF CONSULTATION: 12/18/2019 CHIEF COMPLAINT: Dysphagia, inability to eat, inability to place PEG tube in standard fashion. HISTORY OF PRESENT ILLNESS: Mr. Saini is a 64-year-old male who is a [facility] inmate. He was admitted to the hospital a couple of weeks ago after he sustained a cerebrovascular accident. He has diminished/altered mental status, inability to speak, and inability to swallow. He has also recently been diagnosed with extensive lower extremity DVTs, for which he is currently on a heparin drip. Gastroenterology was consulted for PEG tube placement. This was attempted this morning, but was unsuccessful. I am consulted for laparoscopic-assisted PEG tube placement. PAST MEDICAL HISTORY: 1. Hypertension. 2. Chronic hepatitis C. 3. Atrial fibrillation. 4. Dementia. 5. Benign prostatic hypertrophy. 6. Degenerative joint disease. 7. Cerebrovascular accident. PAST SURGICAL HISTORY: Unknown. PERSONAL SOCIAL HISTORY: Currently a prisoner. ALLERGIES: NO KNOWN DRUG ALLERGIES. MEDICATIONS: As listed in the chart. Of significance, he is currently on a heparin drip. PHYSICAL EXAMINATION: VITAL SIGNS: He is afebrile. Vital signs within normal limits. GENERAL: He is an elderly-appearing white male, resting in bed. Nasogastric tube is in place and is receiving tube feeds through this currently. He arouses easily and nods his head and then mouths words to communicate. HEAD, EYES, EARS, NOSE, AND THROAT: Unremarkable. NECK: Supple. LUNGS: Clear to auscultation. ABDOMEN: Soft, nontender, and nondistended. Bowel sounds are present and normoactive. EXTREMITIES: Unremarkable. ASSESSMENT: The patient with stroke which has made it impossible for him to maintain appropriate nutrition with oral intake. PEG tube placement is requested for nutritional reasons. The PEG tube was unable to be placed using standard endoscopic technique. I have been requested to place a laparoscopic-assisted PEG tube. I have discussed this in general with the patient who understands and agrees to proceed. Consent will be obtained either with 2 physicians or through the correction system. Job ID: [id number]
[2019-12-19 05:12] LABS: #Eosinphils 0.1 thou/uL (0.0-0.7); #Lymphocytes 1.3 thou/uL (1.20-3.40); #Monocytes 0.5 thou/uL (0.11-0.59); #Neutrophils 7.1 thou/uL (1.40-6.50); %Basophils 0.1 % (0.0-1.0); %Eosinophils 0.8 % (0.0-10.0); %Lymphocytes 14.3 % (21.0-51.0); %Monocytes 5.6 % (0.0-10.0); %Neutrophils 79.3 % (42.0-75.0); Hemoglobin 16.1 g/dL (14.0-18.0); Mean Corpuscular Hemoglobin 31.2 pg (27.0-31.0); Mean Platelet Volume 11.2 fL (7.4-10.4); Platelet Count 120 thou/uL (130-400); RBC Distribution Width 12.3 % (11.5-14.5); Red Blood Cell (RBC) Count 5.15 mill/uL (4.70-6.10)
[2019-12-19 05:37] LABS: Anion Gap 15 mmol/L (10-20); BUN (Urea Nitrogen) 76 mg/dL (8.4-25.7); Calc. Creatinine Clearance 30 mL/min (70-130); Calcium 8.3 mg/dL (7.8-10.44); Carbon Dioxide 18 mmol/L (23-31); Estimated GFR-MDRD 22; Glucose 120 mg/dL (80-115); Potassium 3.8 mmol/L (3.5-5.1); Sodium 156 mmol/L (136-145)
[2019-12-19 05:41] LABS: Chloride 127 mmol/L (98-107)
[2019-12-19] MEDS: Terazosin HCl 1 MG CAP PO SCH (09:48)
[2019-12-19] MEDS: Famotidine 20 MG TAB PO SCH (09:48)
[2019-12-19] MEDS: Polyethylene Glycol 3350 17 GM Packet PO SCH ×2 (09:48→22:34)
[2019-12-19] MEDS: Carvedilol 3.125 MG TAB PO SCH ×2 (09:48→17:32)
[2019-12-19] MEDS: Aspirin 81 mg Enteric Coated Tablet PO SCH (09:48)
[2019-12-19] MEDS: Senokot S 8.6-50 MG TAB PO SCH ×2 (09:48→22:34)
[2019-12-19] MEDS ORDERED: Fentanyl 100 MCG/2 ML VIAL ONE (10:24)
[2019-12-19] MEDS ORDERED: Bupivacaine 0.25% HCL 30 ML VIAL ONE (10:28)
[2019-12-19] MEDS ORDERED: Lidocaine 1% w/Epinephrine 1:100K 20 ML VIAL ONE (10:28)
[2019-12-19] MEDS ORDERED: Albumin 5% 500 ML ONE (10:36)
[2019-12-19] MEDS ORDERED: Sodium Chloride 0.9% 0 ML ONE ×2 (10:45→10:46)
[2019-12-19] MEDS ORDERED: Sodium Chloride 0.9% 10 ML ONE (10:46)
--- NOTE | 2019-12-19 10:55 | PDOC.HOSPP ---
- Subjective Encounter Date: 12/19/19 Encounter Time: 09:00 Subjective: lethargic, not oriented - Objective Vital Signs & Weight: Vital Signs (12 hours) Temp Pulse Resp BP Pulse Ox 12/19/19 08:04 98 12/19/19 08:00 98.3 F 92 16 121/95 H 96 12/19/19 04:00 97.8 F 88 18 108/89 98 12/19/19 00:00 98.3 F 54 L 18 118/70 96 Weight Admit Weight 200 lb Weight 182 lb 15.739 oz I&O: 12/18/19 12/19/19 12/20/19 06:59 06:59 06:59 Intake Total 2550 1434 Output Total 1250 1150 Balance 1300 284 Result Diagrams: 12/19/19 04:50 12/19/19 04:50 Hospitalist ROS - Medication Medications: Active Medications Generic Name Dose Route Start Last Admin Trade Name Freq PRN Reason Stop Dose Admin Acetaminophen 650 mg 12/14/19 19:43 12/16/19 08:48 Tylenol WI 650 mg Q4H PRN Administration Headache/Fever or Pain Aspirin 81 mg 12/11/19 09:00 12/19/19 09:48 Ecotrin PO Not Given DAILY [facility] Atorvastatin Calcium 10 mg 12/02/19 21:00 12/18/19 23:25 Lipitor PO Not Given [facility] Carvedilol 6.25 mg 12/11/19 17:00 12/19/19 09:48 Coreg PO Not Given BID-WM [facility] Famotidine 20 mg 12/17/19 09:00 12/19/19 09:48 Pepcid PO Not Given DAILY [facility] Heparin Sodium (Porcine) 0 units 12/17/19 10:00 12/18/19 20:53 Heparin 1,000 Units/Ml (10 Ml) SLOW IVP 6,584 unit ASDIR ADALGISA Administration Protocol Levetiracetam 500 mg/ Device 100 mls @ 200 mls/hr 12/16/19 21:00 12/19/19 00: 14 IVPB 100 mls BID ADALGISA Administration Heparin Sodium/Dextrose 500 mls @ 0 mls/hr 12/17/19 10:00 12/18/19 19:28 Heparin 25,000 Units/D5w IVPB 500 mls INF ADALGISA Administration Protocol Per Protocol Polyethylene Glycol 17 gm 12/06/19 21:00 12/19/19 09:48 Miralax PO Not Given BID ADALGISA Senna/Docusate Sodium 2 tab 12/05/19 21:00 12/19/19 09:48 Senokot S PO Not Given BID ADALGISA Sodium Chloride 10 ml 12/01/19 23:09 12/10/19 20:14 Flush - Normal Saline IVF 10 ml PRN PRN Administration Saline Flush Terazosin HCl 1 mg 12/04/19 09:00 12/19/19 09:48 Hytrin PO Not Given DAILY ADALGISA - Exam General Appearance: ill appearing Eye: PERRL, anicteric sclera ENT: no oropharyngeal lesions, dry oral mucosa Neck: supple, no JVD Heart: RRR, no gallops Respiratory: no wheezes, no rales, rhonchi Gastrointestinal: soft, non-tender, non-distended, normal bowel sounds Extremities: no cyanosis, 1+ LE edema Neurological: hemiplegia, speech deficit Hosp A/P (1) Acute CVA (cerebrovascular accident) Code(s): I63.9 - CEREBRAL INFARCTION, UNSPECIFIED Status: Acute (2) Seizure disorder Code(s): G40.909 - EPILEPSY, UNSP, NOT INTRACTABLE, WITHOUT STATUS EPILEPTICUS Status: Chronic (3) Chronic hepatitis Code(s): K73.9 - CHRONIC HEPATITIS, UNSPECIFIED Status: Chronic (4) BPH (benign prostatic hyperplasia) Code(s): N40.0 - BENIGN PROSTATIC HYPERPLASIA WITHOUT LOWER URINRY TRACT SYMP Status: Acute Qualifiers: Lower urinary tract symptom presence: symptoms present Lower urinary tract symptom detail: urinary retention Qualified Code(s): N40.1 - Benign prostatic hyperplasia with lower urinary tract symptoms; R33.8 - Other retention of urine (5) H/O: CVA (cerebrovascular accident) Code(s): Z86.73 - PRSNL HX OF TIA (TIA), AND CEREB INFRC W/O RESID DEFICITS Status: Chronic (6) Acute metabolic encephalopathy Code(s): G93.41 - METABOLIC ENCEPHALOPATHY Status: Acute (7) Cardiomyopathy Code(s): I42.9 - CARDIOMYOPATHY, UNSPECIFIED Status: Acute Qualifiers: Cardiomyopathy type: unspecified Qualified Code(s): I42.9 - Cardiomyopathy , unspecified (8) Expressive aphasia Code(s): R47.01 - APHASIA Status: Acute (9) Physical deconditioning Code(s): R53.81 - OTHER MALAISE Status: Acute (10) Rhabdomyolysis Code(s): M62.82 - RHABDOMYOLYSIS Status: Resolved Qualifiers: Rhabdomyolysis type: non-traumatic Qualified Code(s): M62.82 - Rhabdomyolysis (11) Chronic atrial fibrillation Code(s): I48.20 - CHRONIC ATRIAL FIBRILLATION, UNSPECIFIED Status: Chronic (12) HTN (hypertension) Code(s): I10 - ESSENTIAL (PRIMARY) HYPERTENSION Status: Chronic Qualifiers: Hypertension type: essential hypertension Qualified Code(s): I10 - Essential (primary) hypertension (13) DVT (deep venous thrombosis) Code(s): I82.409 - ACUTE EMBOLISM AND THOMBOS UNSP DEEP VN UNSP LOWER EXTREMITY Status: Acute Qualifiers: DVT location: lower extremity Chronicity: acute Laterality: bilateral (14) Aspiration pneumonia Code(s): J69.0 - PNEUMONITIS DUE TO INHALATION OF FOOD AND VOMIT Status: Acute Qualifiers: Aspiration pneumonia type: due to regurgitated food Laterality: bilateral Lung location: lower lobe of lung Qualified Code(s): J69.0 - Pneumonitis due to inhalation of food and vomit (15) LYNN (acute kidney injury) Code(s): N17.9 - ACUTE KIDNEY FAILURE, UNSPECIFIED Status: Acute - Plan new acute left mca infarct with right hemiparesis, aphasia and dysphagia this admission. new b/l dvt, on heparin drip held for peg tube today is on clindamycin, D5W iv fluids renal function is getting worse sec to pre renal and combination of zosyn ( switched to clinda)and entresto (stopped x 2 days now), plus ef of 25%. needs peg tube for nutrition and medications h/o large right mca infarct with encephalomalacia on MRI rhabdomyolysis resolved afib is rate controlled echo showed ef of 25% with severe mitral regurgitation. continue coreg, low dose lipitor, keppra, hytrin will add coumadin once procedures are completed life vest is not an option as patient is not oriented to follow instructions. very severe deconditioning, barely able to stand with therapy/ confused, multiple organ failure, needs [facility] has indwelling guillen, needs outpt urology appointment in 2 weeks awaiting [facility] bed
[2019-12-19] MEDS ORDERED: Glycopyrrolate 0.2 MG/ML 5 ML SYRINGE ONE (11:32)
[2019-12-19] MEDS ORDERED: Dexamethasone 20 MG/5 ML VIAL ONE (11:32)
[2019-12-19] MEDS ORDERED: Lidocaine 1% PF 5 ML VIAL ONE (11:32)
[2019-12-19] MEDS ORDERED: Succinylcholine Chloride 20 MG/ML 10 ml SYRINGE FS ONE (11:32)
[2019-12-19] MEDS ORDERED: Ondansetron PF 4 MG/2 ML Vial ONE (11:32)
[2019-12-19] MEDS ORDERED: Rocuronium Bromide 10 MG/ML (10ML VIAL) ONE (11:32)
[2019-12-19] MEDS ORDERED: Promethazine HCl 25 MG/ML VIAL SLOW IVP PRN (11:59)
[2019-12-19] MEDS ORDERED: Promethazine HCl 25 MG/ML VIAL IM PRN (11:59)
[2019-12-19] MEDS ORDERED: Ondansetron HCl/PF 4 MG/2 ML Vial IVP PRN (11:59)
--- NOTE | 2019-12-19 12:13 | RAD ---
EXAM: CHEST ONE VIEW HISTORY: Central line insertion. COMPARISON: 12/14/2019 FINDINGS: A left subclavian vascular catheter is noted in place with the tip overlying the expected location of the right atrium. No pneumothorax is visualized. Cardiac silhouette remains moderately enlarged. Pulmonary vasculature is within normal limits. The lungs are clear. Patchy parenchymal density right lung base and in the left midlung zone has improved. IMPRESSION: 1. Interval placement of a left subclavian vascular catheter with tip overlying the expected location of the right atrium. 2. Marked cardiomegaly without overt CHF. 3. Improvement in aeration and resolution of previously seen patchy parenchymal densities at the righ t lung base and left midlung zone.
[2019-12-19] MEDS: Dextrose 5% in Water 1,000 ML IV SCH ×3 (13:35→22:32)
[2019-12-19] MEDS: Clindamycin/D5W 600 MG in Premix Bag 1 BAG IVPB SCH ×2 (14:53→17:59)
[2019-12-19 16:46] LABS: Hemoglobin 15.9 g/dL (14.0-18.0); Platelet Count 105 thou/uL (130-400)
[2019-12-19] MEDS: Heparin 25,000 units/D5W 500 ML IVPB SCH (17:28)
--- NOTE | 2019-12-19 18:51 | OP ---
DATE OF PROCEDURE: 12/19/2019 PREOPERATIVE DIAGNOSES: Cerebrovascular accident, dysphagia with inability to swallow, inability to place standard percutaneous endoscopic gastrostomy tube. POSTOPERATIVE DIAGNOSES: Cerebrovascular accident, dysphagia with inability to swallow, inability to place standard percutaneous endoscopic gastrostomy tube. PROCEDURES PERFORMED: Laparoscopic-assisted percutaneous endoscopic gastrostomy tube placement, esophagogastroduodenoscopy. ANESTHESIA: General endotracheal. INDICATIONS: The patient is a 64-year-old white male. He has been in the hospital for a couple of weeks in treatment of new stroke. He is unable to speak. He has been found unable to swallow appropriately. PEG tube placement was requested and Gastroenterology attempted this yesterday. It was unsuccessful and I am therefore consulted for laparoscopic PEG tube placement. DESCRIPTION OF OPERATION: Informed consent was obtained from the detention fashion styling intern. The patient was taken to the operating room, where general endotracheal anesthesia was obtained with the patient in supine position. Abdomen was prepped with ChloraPrep and draped in sterile fashion. Local anesthetic was infiltrated and 5-mm umbilical incision was created through which a Veress needle was passed into the peritoneal cavity and pneumoperitoneum was established using carbon dioxide up to pressure of 15 mmHg. A 5-mm trocar port was passed through the same incision. Laparoscopic camera was passed through the camera. I was able to inspect the upper abdomen. There was no evidence of blood within the upper abdomen. He had a nodular appearing liver consistent with some degree of cirrhosis. At this juncture, the gastroscope was advanced into the stomach uneventfully. The stomach was insufflated and this was visualized laparoscopically. I selected a segment of the anterior abdominal wall that was appropriate for access into the stomach. This was slightly inferior to the area of the puncture still made by Dr. Fraser yesterday. Local anesthetic was infiltrated and a 5-mm incision was created. Through this incision, the Angiocath was advanced into the lumen of the stomach and this was visualized both with the laparoscope and the endoscope. Guidewire was advanced through the needle and retrieved using the snare. The wire was pulled back out through the mouth, where it was affixed to the tapered end of the PEG tube. This was withdrawn back to the anterior abdominal wall. Care was taken to only use sterile gloves during the abdominal portion of the operation. The external flange was placed along with the external clamp and the external tube connections. Antibiotic ointment and gauze dressing were applied. The pneumoperitoneum was carefully evacuated. The scope and hand port were removed. The incision was closed with a 4-0 Monocryl subcuticular suture and Dermabond was placed externally. There were no complications. Blood loss was essentially none. The patient tolerated the procedure well. Job ID: [id number]
--- NOTE | 2019-12-19 20:46 | CON ---
DATE OF CONSULTATION: 12/19/2019 CONSULTING PHYSICIAN: Dr. Ackerman. REASON FOR CONSULTATION: Acute kidney injury and hypernatremia. REASON FOR ADMISSION: Altered mentation. HISTORY OF PRESENT ILLNESS: A 64-year-old male with a history of CVA, hypertension, atrial fibrillation, who was admitted to the hospital a few weeks back after episode of CVA and had a complicated course. He was found to have elevated creatinine and elevated sodium. Nephrology consulted. He was getting a PEG tube placed today and he was seen after the PEG tube placement. He was very lethargic, not able to give a good history. He was also found to have a DVT and is on heparin drip. PAST MEDICAL HISTORY: Positive for hypertension, atrial fibrillation, hepatitis C, dementia, BPH, DJD, and hemorrhoids. PAST SURGICAL HISTORY: Not available. HOME MEDICATIONS: Reviewed. ALLERGIES: NO KNOWN DRUG ALLERGIES. SOCIAL HISTORY: Not obtainable. FAMILY HISTORY: Not obtainable. REVIEW OF SYSTEMS: Could not be obtained as the patient was sedative after the procedure. PHYSICAL EXAMINATION: GENERAL: This is a well-built male, very lethargic. VITAL SIGNS: Temperature 98.3, pulse 90, respiratory rate 16, blood pressure 120/95. HEENT: Atraumatic and normocephalic. NECK: Supple. CV: S1 and S2. RESPIRATORY: Clear. GASTROINTESTINAL: Abdomen is soft. MUSCULOSKELETAL: 1+ edema. DERMATOLOGIC: No skin rash. NEUROLOGIC: Somnolent. LABORATORY DATA: Sodium 156, chloride 127, BUN is 76, and creatinine is 2.8. ASSESSMENT AND PLAN: 1. Acute kidney injury, most likely from volume depletion. Agree with hydration. 2. Hypernatremia. 3. Hyperchloremia. 4. Acidosis. 5. Anemia of chronic disease. 6. History of hypertension. Prognosis is extremely poor, given the multiple complex diagnosis and conditions. We will continue on IV fluids for now. Recommend free water if can tolerate through PEG tube and also continue on D5W for now. We will continue close monitoring of labs and we will follow. Thank you for the consult. Job ID: [id number]
[2019-12-19] MEDS: Atorvastatin Calcium 10 MG TAB PO SCH (22:33)
[2019-12-20] MEDS: Clindamycin/D5W 600 MG in Premix Bag 1 BAG IVPB SCH ×4 (00:45→23:35)
[2019-12-20 02:49] LABS: Potassium 4.2 mmol/L (3.5-5.1); Sodium 150 mmol/L (136-145)
[2019-12-20 02:50] LABS: Calcium 8.3 mg/dL (7.8-10.44)
[2019-12-20 02:52] LABS: Anion Gap 15 mmol/L (10-20); Carbon Dioxide 13 mmol/L (23-31)
[2019-12-20 02:54] LABS: Calc. Creatinine Clearance 34 mL/min (70-130); Estimated GFR-MDRD 26; Phosphorus 4.1 mg/dL (2.3-4.7)
[2019-12-20 02:55] LABS: BUN (Urea Nitrogen) 66 mg/dL (8.4-25.7)
[2019-12-20 02:56] LABS: Glucose 153 mg/dL (80-115); Magnesium 2.4 mg/dL (1.6-2.6)
[2019-12-20 02:57] LABS: Chloride 126 mmol/L (98-107)
[2019-12-20 05:34] LABS: Hemoglobin 14.4 g/dL (14.0-18.0); Platelet Count 97 thou/uL (130-400)
[2019-12-20 05:44] LABS: PTT 129.7 SEC (22.9-36.1)
[2019-12-20] MEDS: Dextrose 5% in Water 1,000 ML IV SCH (07:15)
--- NOTE | 2019-12-20 07:51 | PDOC.HOSPP ---
- Subjective Encounter Date: 12/20/19 Subjective: The patient was seen and examined. He was able to wake up and hold both of his arms up in the air on command. - Objective Vital Signs & Weight: Vital Signs (12 hours) Temp Pulse Resp BP BP Pulse Ox 12/20/19 07:42 100 12/20/19 04:48 97.5 F L 87 16 113/87 100 12/20/19 01:58 98.2 F 92 16 120/87 93 L Weight Admit Weight 200 lb Weight 190 lb 14.725 oz I&O: 12/19/19 12/20/19 12/21/19 06:59 06:59 06:59 Intake Total 1434 1080 Output Total 1150 1580 Balance 284 -500 Result Diagrams: 12/20/19 05:22 12/20/19 05:22 Hospitalist ROS - Medication Medications: Active Medications Generic Name Dose Route Start Last Admin Trade Name Freq PRN Reason Stop Dose Admin Acetaminophen 650 mg 12/14/19 19:43 12/16/19 08:48 Tylenol [place] 650 mg Q4H PRN Administration Headache/Fever or Pain Aspirin 81 mg 12/11/19 09:00 12/19/19 09:48 Ecotrin PO Not Given DAILY ADALGISA Atorvastatin Calcium 10 mg 12/02/19 21:00 12/19/19 22:33 Lipitor PO 10 mg HS ADALGISA Administration Carvedilol 6.25 mg 12/11/19 17:00 12/19/19 17:32 Coreg PO 6.25 mg BID-WM ADALGISA Administration Famotidine 20 mg 12/17/19 09:00 12/19/19 09:48 Pepcid PO Not Given DAILY ADALGISA Heparin Sodium (Porcine) 0 units 12/17/19 10:00 12/18/19 20:53 Heparin 1,000 Units/Ml (10 Ml) SLOW IVP 6,584 unit ASDIR ADALGISA Administration Protocol Levetiracetam 500 mg/ Device 100 mls @ 200 mls/hr 12/16/19 21:00 12/19/19 23: 38 IVPB 100 mls BID ADALGISA Administration Heparin Sodium/Dextrose 500 mls @ 0 mls/hr 12/17/19 10:00 12/19/19 17:28 Heparin 25,000 Units/D5w IVPB 500 mls INF ADALGISA Administration Protocol Per Protocol Dextrose/Water 1,000 mls @ 125 mls/hr 12/19/19 07:15 12/19/19 22:32 D5w IV 1,000 mls .Q8H ADALGISA Administration Clindamycin Phosphate/Dextrose 50 mls @ 100 mls/hr 12/19/19 23:00 12/20/19 06 :00 600 mg/ Device IVPB 50 mls 0700,1500,2300 ADALGISA Administration Polyethylene Glycol 17 gm 12/06/19 21:00 12/19/19 22:34 Miralax PO Not Given BID ADALGISA Senna/Docusate Sodium 2 tab 12/05/19 21:00 12/19/19 22:34 Senokot S PO Not Given BID ADALGISA Sodium Chloride 10 ml 12/01/19 23:09 12/10/19 20:14 Flush - Normal Saline IVF 10 ml PRN PRN Administration Saline Flush Terazosin HCl 1 mg 12/04/19 09:00 12/19/19 09:48 Hytrin PO Not Given DAILY ADALGISA - Exam General Appearance: awake alert, ill appearing ENT: normocephalic atraumatic Neck: supple Heart: RRR Respiratory: CTAB, normal chest expansion Gastrointestinal: soft, non-tender, non-distended, normal bowel sounds Neurological - other findings: 3 out of 5 weakness is bilateral upper and lower extremities. Hosp A/P (1) Acute CVA (cerebrovascular accident) Code(s): I63.9 - CEREBRAL INFARCTION, UNSPECIFIED Status: Acute (2) Hypernatremia Code(s): E87.0 - HYPEROSMOLALITY AND HYPERNATREMIA Status: Acute (3) Hyperchloremia Code(s): E87.8 - OTH DISORDERS OF ELECTROLYTE AND FLUID BALANCE, NEC Status: Acute (4) LYNN (acute kidney injury) Code(s): N17.9 - ACUTE KIDNEY FAILURE, UNSPECIFIED Status: Acute (5) Aspiration pneumonia Code(s): J69.0 - PNEUMONITIS DUE TO INHALATION OF FOOD AND VOMIT Status: Acute Qualifiers: Aspiration pneumonia type: due to regurgitated food Laterality: bilateral Lung location: lower lobe of lung Qualified Code(s): J69.0 - Pneumonitis due to inhalation of food and vomit (6) Cardiomyopathy Code(s): I42.9 - CARDIOMYOPATHY, UNSPECIFIED Status: Acute Qualifiers: Cardiomyopathy type: unspecified Qualified Code(s): I42.9 - Cardiomyopathy , unspecified (7) DVT (deep venous thrombosis) Code(s): I82.409 - ACUTE EMBOLISM AND THOMBOS UNSP DEEP VN UNSP LOWER EXTREMITY Status: Acute Qualifiers: DVT location: lower extremity Chronicity: acute Laterality: bilateral (8) Physical deconditioning Code(s): R53.81 - OTHER MALAISE Status: Acute (9) Chronic atrial fibrillation Code(s): I48.20 - CHRONIC ATRIAL FIBRILLATION, UNSPECIFIED Status: Chronic (10) Seizure disorder Code(s): G40.909 - EPILEPSY, UNSP, NOT INTRACTABLE, WITHOUT STATUS EPILEPTICUS Status: Chronic (11) Rhabdomyolysis Code(s): M62.82 - RHABDOMYOLYSIS Status: Resolved Qualifiers: Rhabdomyolysis type: non-traumatic Qualified Code(s): M62.82 - Rhabdomyolysis - Plan 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 Aspirin on hold due to bleeding risk. Status post PEG tube. Tube feeding at 40 mL/h. The goal is 60 mL/h which we will try to achieve within the next 48 hours. Acute kidney injury with hypernatremia and hyperchloremia is improving with D5W. Increase free water flushes to 200 mL every 4 hours. Bilateral lower extremity DVT. On heparin drip currently being bridged to warfarin. Check INR daily. Aspiration pneumonia resolving on chest x-ray. No evidence of sepsis. We will DC supplemental oxygen and see patient's response. Plan to DC clindamycin tomorrow. Seizures likely related to CVA. Continue Keppra. Chronic atrial fibrillation is controlled and not on anticoagulation. History of dementia and overall poor functional status given his stroke and multiple organ failure. Will discuss with palliative care and neurosurgery team tomorrow with plan to transition to DNR status. Case management working on placement.
[2019-12-20] MEDS: Terazosin HCl 1 MG CAP PO SCH (08:40)
[2019-12-20] MEDS: Aspirin 81 mg Enteric Coated Tablet PO SCH (08:40)
[2019-12-20] MEDS: Famotidine 20 MG TAB PO SCH (08:41)
[2019-12-20] MEDS: Carvedilol 3.125 MG TAB PO SCH ×2 (08:41→16:16)
[2019-12-20] MEDS: Senokot S 8.6-50 MG TAB PO SCH ×2 (08:41→23:35)
[2019-12-20] MEDS: Polyethylene Glycol 3350 17 GM Packet PO SCH ×2 (08:43→23:34)
[2019-12-20] MEDS: Heparin 25,000 units/D5W 500 ML IVPB SCH (11:22)
--- NOTE | 2019-12-20 11:32 | PRG ---
DATE OF SERVICE: 12/20/2019 SUBJECTIVE: Mr. Saini is postoperative day #1 following a laparoscopic-assisted PEG tube placement. He is resting in bed and appears to be comfortable. He is actually more alert than he has been in the past couple of days when I have seen him. His eyes are open and he responds with simple yes and no's to questions. He denies pain. His tube feeds were apparently tolerated overnight. OBJECTIVE: VITAL SIGNS: On examination, he is afebrile with temperature of 97.7, pulse 90, blood pressure is 125/90. LUNGS: Clear to auscultation. GI: Abdomen is soft and nontender with normoactive bowel sounds. PEG tube site appears to be clean and healing appropriately. LABORATORY DATA: Labs show that his hemoglobin is 14.4 with a hematocrit of 46, and platelet count is 97. Chemistries show that his creatinine has dropped from 2.86 yesterday morning down to 2.39 this morning. However, his sodium and chloride are still substantially elevated. His sodium this morning was 150 and his chloride was 126. This is in spite of IV fluids of D5W and flushes of his tube feeds of water, 100 mL q.4 hours. ASSESSMENT: He appears to be stable following PEG tube placement. PLAN: His tube feeds maybe advanced to goal nutritional rate and certainly continue flushes as appropriate to try to normalize his electrolytes. He appears to have no other surgical issues. I will see him in the future as needed. Please contact me if I maybe of further assistance in this patient's care. Job ID: [id number]
[2019-12-20] MEDS: Sodium Bicarbonate 75 MEQ in Dextrose 5% in Water 1,000 ML IV SCH (14:43)
[2019-12-20] MEDS ORDERED: Warfarin Sodium 5 MG TAB PO SCH (17:00)
--- NOTE | 2019-12-20 17:30 | PRG ---
DATE OF SERVICE: 12/20/2019 SUBJECTIVE: Patient was seen and examined at bedside and overnight events noted. Patient denies any shortness of breath or chest pain or palpitation. No history of nausea or vomiting or diarrhea or fever or chills or cramps. OBJECTIVE: GENERAL: This is a well-built male, in no apparent distress. VITAL SIGNS: Temperature 98.4. Pulse 94. Respiratory rate . Blood pressure 120/86. HEENT: Atraumatic, normocephalic. Oral mucosa is moist NECK: Supple. CARDIOVASCULAR: S1, S2 heard. Rate and rhythm regular. RESPIRATORY: Clear to auscultation. GASTROINTESTINAL: Abdomen is soft. MUSCULOSKELETAL: No tenderness. No edema. DERMATOLOGIC: No skin rash. NEUROLOGIC: Alert and awake and oriented X3. No focal neurologic deficits. Moving all the extremities. PSYCHIATRIC: Mood and affect normal. LABORATORY DATA: Sodium 150, potassium 4.2, bicarb 13, BUN 66, and creatinine 2.4. ASSESSMENT AND PLAN: 1. Acute kidney injury, getting better. 2. Hypernatremia, better. 3. Hyperchloremia. 4. Acidosis, getting worse. We will add bicarb. We will continue free water. 5. History of hypertension. 6. Prognosis is extremely poor. We will follow. Job ID: [id number]
[2019-12-20] MEDS: Atorvastatin Calcium 10 MG TAB PO SCH (22:14)
[2019-12-20] MEDS: Acetaminophen 650 MG/20.3 ML UDCUP PO PRN (23:35)
[2019-12-21] MEDS: Sodium Bicarbonate 75 MEQ in Dextrose 5% in Water 1,000 ML IV SCH ×2 (01:55→13:25)
[2019-12-21] MEDS: Heparin 25,000 units/D5W 500 ML IVPB SCH (04:38)
[2019-12-21 04:55] LABS: INR-International Normal Ratio 1.4; Prothrombin Time 17.4 sec (12.0-14.7)
[2019-12-21 04:56] LABS: PTT 78.4 SEC (22.9-36.1)
[2019-12-21 05:03] LABS: Hemoglobin 14.2 g/dL (14.0-18.0); Mean Corpuscular HGB CONC 31.3 g/dL (32.0-36.0); Mean Corpuscular Hemoglobin 31.2 pg (27.0-31.0); Mean Corpuscular Volume 99.8 fL (78.0-98.0); Mean Platelet Volume 11.5 fL (7.4-10.4); Platelet Count 110 thou/uL (130-400); RBC Distribution Width 12.3 % (11.5-14.5); Red Blood Cell (RBC) Count 4.54 mill/uL (4.70-6.10); White Blood Cell (WBC) Count 9.9 thou/uL (4.8-10.8)
[2019-12-21 05:04] LABS: Band 3 % (5-11); Eosinophils 1 % (0-10); Lymphocytes 22 % (21-51); MDiff Complete? YES; Metamyelocyte 1 % (0-0); Monocytes 9 % (0-10); Neutrophil 64 % (42-75); Platelet Morphology Comment Appears Decreased
[2019-12-21 05:13] LABS: Anion Gap 12 mmol/L (10-20); BUN (Urea Nitrogen) 59 mg/dL (8.4-25.7); Calc. Creatinine Clearance 43 mL/min (70-130); Carbon Dioxide 21 mmol/L (23-31); Chloride 116 mmol/L (98-107); Estimated GFR-MDRD 31; Glucose 111 mg/dL (80-115); Potassium 3.6 mmol/L (3.5-5.1); Sodium 145 mmol/L (136-145)
[2019-12-21] MEDS: Terazosin HCl 1 MG CAP PO SCH (08:35)
[2019-12-21] MEDS: Carvedilol 3.125 MG TAB PO SCH ×2 (08:35→16:46)
[2019-12-21] MEDS: Clindamycin/D5W 600 MG in Premix Bag 1 BAG IVPB SCH (08:35)
[2019-12-21] MEDS: Famotidine 20 MG TAB PO SCH (08:35)
[2019-12-21] MEDS: Aspirin 81 mg Enteric Coated Tablet PO SCH (08:35)
[2019-12-21] MEDS: Polyethylene Glycol 3350 17 GM Packet PO SCH ×2 (08:36→23:04)
[2019-12-21] MEDS: Senokot S 8.6-50 MG TAB PO SCH ×2 (08:36→23:04)
[2019-12-21 10:14] LABS: Hemoglobin 13.6 g/dL (14.0-18.0); Platelet Count 117 thou/uL (130-400)
--- NOTE | 2019-12-21 14:19 | PRG ---
DATE OF SERVICE: 12/21/2019 SUBJECTIVE: A 64-year-old gentleman, being seen for acute kidney injury. The patient denies any nausea, vomiting, or chest pain. OBJECTIVE: GENERAL: The patient is awake and alert. VITAL SIGNS: Afebrile, pulse 75, breathing at 16, blood pressure was 140/100. HEENT: Head normocephalic and atraumatic. Eyes intact, no ulcers. Nose intact, no ulcers. Ears intact, no ulcers. NECK: Supple. No JVD. CHEST: Symmetrical and clear. CARDIOVASCULAR: Shows S1 and S2, no rub, no murmur. GASTROINTESTINAL: Abdomen is soft, bowel sounds positive. EXTREMITIES: Show no edema or ulcers. SKIN: Shows no rash or petechiae. MUSCULOSKELETAL: Shows no joint swelling or stiffness. GENITOURINARY: Shows no Reese or CVA tenderness. NEUROLOGIC: Motor intact. Cranial nerves intact. LABORATORY DATA: Show hemoglobin 13.6. Creatinine is 2.1. ASSESSMENT AND RECOMMENDATIONS: 1. Acute kidney injury, improved. 2. Hypertension, stable. 3. Anemia, stable. 4. Hypernatremia, stable. No indication for dialysis. Continue hydration. Job ID: [id number]
--- NOTE | 2019-12-21 18:18 | PDOC.HOSPP ---
- Subjective Encounter Date: 12/21/19 - Objective Vital Signs & Weight: Vital Signs (12 hours) Temp Pulse Pulse Pulse Resp BP BP 12/21/19 16:00 98.7 F 89 18 12/21/19 12:00 98 F 93 20 12/21/19 09:08 84 83 139/91 H 128/103 H 12/21/19 08:34 98.5 F 88 26 H BP Pulse Ox 12/21/19 16:00 139/85 95 12/21/19 12:00 140/100 H 93 L 12/21/19 09:08 12/21/19 08:34 154/104 H 95 Weight Admit Weight 200 lb Weight 198 lb 13.711 oz I&O: 12/20/19 12/21/19 12/22/19 06:59 06:59 06:59 Intake Total 0832 533 1818.2 Output Total 2679 477 7146 Balance -569 169 3088.2 Result Diagrams: 12/21/19 09:56 12/21/19 04:25 Additional Labs: Accuchecks 12/21/19 02:16 POC Glucose 104 Hospitalist ROS - Medication Medications: Active Medications Generic Name Dose Route Start Last Admin Trade Name Freq PRN Reason Stop Dose Admin Acetaminophen 650 mg 12/14/19 19:43 12/16/19 08:48 Tylenol [place] 650 mg Q4H PRN Administration Headache/Fever or Pain Acetaminophen 650 mg 12/20/19 21:22 12/20/19 23:35 Tylenol Elixir PO 650 mg Q4H PRN Administration Headache/Fever /MILD Pain 1-3 Aspirin 81 mg 12/11/19 09:00 12/21/19 08:35 Ecotrin PO 81 mg DAILY ADALGISA Administration Atorvastatin Calcium 10 mg 12/02/19 21:00 12/20/19 22:14 Lipitor PO 10 mg HS ADALGISA Administration Carvedilol 6.25 mg 12/11/19 17:00 12/21/19 16:46 Coreg PO 6.25 mg BID-WM ADALGISA Administration Famotidine 20 mg 12/17/19 09:00 12/21/19 08:35 Pepcid PO 20 mg DAILY ADALGISA Administration Heparin Sodium (Porcine) 0 units 12/17/19 10:00 12/18/19 20:53 Heparin 1,000 Units/Ml (10 Ml) SLOW IVP 6,584 unit ASDIR ADALGISA Administration Protocol Levetiracetam 500 mg/ Device 100 mls @ 200 mls/hr 12/16/19 21:00 12/21/19 08: 34 IVPB 100 mls BID ADALGISA Administration Sodium Bicarbonate 75 meq/ 1,075 mls @ 100 mls/hr 12/20/19 14:30 12/21/19 13: 25 Dextrose/Water IV 1,075 mls .[id number] ADALGISA Administration Polyethylene Glycol 17 gm 12/06/19 21:00 12/21/19 08:36 Miralax PO Not Given BID ADALGISA Senna/Docusate Sodium 2 tab 12/05/19 21:00 12/21/19 08:36 Senokot S PO Not Given BID ADALGISA Sodium Chloride 10 ml 12/01/19 23:09 12/10/19 20:14 Flush - Normal Saline IVF 10 ml PRN PRN Administration Saline Flush Terazosin HCl 1 mg 12/04/19 09:00 12/21/19 08:35 Hytrin PO 1 mg DAILY ADALGISA Administration - Exam General Appearance: ill appearing Neck: supple Heart: RRR Respiratory: normal chest expansion, no tachypnea Gastrointestinal: soft, normal bowel sounds Extremities: no cyanosis, no clubbing Hosp A/P (1) Acute CVA (cerebrovascular accident) Code(s): I63.9 - CEREBRAL INFARCTION, UNSPECIFIED Status: Acute (2) Hypernatremia Code(s): E87.0 - HYPEROSMOLALITY AND HYPERNATREMIA Status: Acute (3) Hyperchloremia Code(s): E87.8 - OTH DISORDERS OF ELECTROLYTE AND FLUID BALANCE, NEC Status: Acute (4) LYNN (acute kidney injury) Code(s): N17.9 - ACUTE KIDNEY FAILURE, UNSPECIFIED Status: Acute (5) Aspiration pneumonia Code(s): J69.0 - PNEUMONITIS DUE TO INHALATION OF FOOD AND VOMIT Status: Acute Qualifiers: Aspiration pneumonia type: due to regurgitated food Laterality: bilateral Lung location: lower lobe of lung Qualified Code(s): J69.0 - Pneumonitis due to inhalation of food and vomit (6) Cardiomyopathy Code(s): I42.9 - CARDIOMYOPATHY, UNSPECIFIED Status: Acute Qualifiers: Cardiomyopathy type: unspecified Qualified Code(s): I42.9 - Cardiomyopathy , unspecified (7) DVT (deep venous thrombosis) Code(s): I82.409 - ACUTE EMBOLISM AND THOMBOS UNSP DEEP VN UNSP LOWER EXTREMITY Status: Acute Qualifiers: DVT location: lower extremity Chronicity: acute Laterality: bilateral (8) Physical deconditioning Code(s): R53.81 - OTHER MALAISE Status: Acute (9) Chronic atrial fibrillation Code(s): I48.20 - CHRONIC ATRIAL FIBRILLATION, UNSPECIFIED Status: Chronic (10) Seizure disorder Code(s): G40.909 - EPILEPSY, UNSP, NOT INTRACTABLE, WITHOUT STATUS EPILEPTICUS Status: Chronic (11) Rhabdomyolysis Code(s): M62.82 - RHABDOMYOLYSIS Status: Resolved Qualifiers: Rhabdomyolysis type: non-traumatic Qualified Code(s): M62.82 - Rhabdomyolysis - Plan 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 Status post PEG tube. Tube feeding at 55 mL/h. The goal is 60 mL/h which we will try to achieve within the next 24 hours. Acute kidney injury with hypernatremia and hyperchloremia is improving with D5W. Free water flushes to 200 mL every 4 hours. Bilateral lower extremity DVT. On low dose eliquis. Aspiration pneumonia resolving on chest x-ray. No evidence of sepsis. We will DC supplemental oxygen and see patient's response. DC clindamycin. Seizures likely related to CVA. Continue Keppra. Chronic atrial fibrillation is controlled and on anticoagulation. History of dementia and overall poor functional status given his stroke and multiple organ failure. Case management working on placement.
[2019-12-21] MEDS: Acetaminophen 650 MG/20.3 ML UDCUP PO PRN (22:24)
[2019-12-21] MEDS: Apixaban 2.5 MG TAB PO SCH (22:24)
[2019-12-21] MEDS: Atorvastatin Calcium 10 MG TAB PO SCH (22:24)
[2019-12-22] MEDS: Sodium Bicarbonate 75 MEQ in Dextrose 5% in Water 1,000 ML IV SCH ×2 (00:31→13:48)
[2019-12-22 05:37] LABS: INR-International Normal Ratio 1.4; Prothrombin Time 16.9 sec (12.0-14.7)
[2019-12-22 05:52] LABS: Anion Gap 14 mmol/L (10-20); BUN (Urea Nitrogen) 49 mg/dL (8.4-25.7); Calc. Creatinine Clearance 55 mL/min (70-130); Calcium 8.3 mg/dL (7.8-10.44); Carbon Dioxide 22 mmol/L (23-31); Chloride 111 mmol/L (98-107); Estimated GFR-MDRD 41; Glucose 113 mg/dL (80-115); Potassium 3.9 mmol/L (3.5-5.1); Sodium 143 mmol/L (136-145)
[2019-12-22 05:54] LABS: Eosinophils 3 % (0-10); Hemoglobin 14.9 g/dL (14.0-18.0); Lymphocytes 11 % (21-51); MDiff Complete? YES; Mean Corpuscular HGB CONC 29.6 g/dL (32.0-36.0); Mean Platelet Volume 11.7 fL (7.4-10.4); Monocytes 1 % (0-10); Neutrophil 85 % (42-75); Platelet Count 125 thou/uL (130-400); Platelet Morphology Comment Appears Adequate; RBC Distribution Width 12.4 % (11.5-14.5); RBC Morphology Normal; Red Blood Cell (RBC) Count 4.98 mill/uL (4.70-6.10); White Blood Cell (WBC) Count 11.7 thou/uL (4.8-10.8)
[2019-12-22] MEDS: Acetaminophen 650 MG/20.3 ML UDCUP PO PRN ×3 (06:16→19:46)
[2019-12-22] MEDS: Carvedilol 3.125 MG TAB PO SCH ×2 (09:16→17:57)
[2019-12-22] MEDS: Terazosin HCl 1 MG CAP PO SCH (09:16)
[2019-12-22] MEDS: Apixaban 2.5 MG TAB PO SCH ×2 (09:16→21:38)
[2019-12-22] MEDS: Famotidine 20 MG TAB PO SCH (09:16)
[2019-12-22] MEDS: Aspirin 81 mg Enteric Coated Tablet PO SCH (09:16)
[2019-12-22] MEDS: Polyethylene Glycol 3350 17 GM Packet PO SCH ×2 (09:17→21:38)
[2019-12-22] MEDS: Senokot S 8.6-50 MG TAB PO SCH ×2 (09:17→21:38)
--- NOTE | 2019-12-22 10:07 | PDOC.HOSPP ---
- Subjective Encounter Date: 12/22/19 - Objective Vital Signs & Weight: Vital Signs (12 hours) Temp Pulse Resp BP Pulse Ox 12/22/19 07:36 99.1 F 105 H 30 H 154/100 H 95 12/22/19 04:26 107 H 24 H 98 12/22/19 04:01 98 12/22/19 03:35 99.0 F 108 H 29 H 160/111 H 92 L 12/22/19 00:42 99.2 F 107 H 34 H 12/22/19 00:00 91 L 12/21/19 23:29 100.1 F H 98 18 116/85 91 L Weight Admit Weight 200 lb Weight 200 lb 13.458 oz I&O: 12/21/19 12/22/19 12/23/19 06:59 06:59 06:59 Intake Total 800 7850.2 Output Total 600 3075 Balance 200 4775.2 Result Diagrams: 12/22/19 05:19 12/22/19 05:19 Additional Labs: Accuchecks 12/22/19 00:39 POC Glucose 112 H Hospitalist ROS - Medication Medications: Active Medications Generic Name Dose Route Start Last Admin Trade Name Freq PRN Reason Stop Dose Admin Acetaminophen 650 mg 12/14/19 19:43 12/16/19 08:48 Tylenol [place] 650 mg Q4H PRN Administration Headache/Fever or Pain Acetaminophen 650 mg 12/20/19 21:22 12/22/19 06:16 Tylenol Elixir PO 650 mg Q4H PRN Administration Headache/Fever /MILD Pain 1-3 Apixaban 2.5 mg 12/21/19 21:00 12/22/19 09:16 Eliquis PO 2.5 mg BID ADALGISA Administration Aspirin 81 mg 12/11/19 09:00 12/22/19 09:16 Ecotrin PO 81 mg DAILY ADALGISA Administration Atorvastatin Calcium 10 mg 12/02/19 21:00 12/21/19 22:24 Lipitor PO 10 mg HS ADALGISA Administration Carvedilol 6.25 mg 12/11/19 17:00 12/22/19 09:16 Coreg PO 6.25 mg BID-WM ADALGISA Administration Famotidine 20 mg 12/17/19 09:00 12/22/19 09:16 Pepcid PO 20 mg DAILY ADALGISA Administration Levetiracetam 500 mg/ Device 100 mls @ 200 mls/hr 12/16/19 21:00 12/22/19 08: 58 IVPB 100 mls BID ADALGISA Administration Sodium Bicarbonate 75 meq/ 1,075 mls @ 100 mls/hr 12/20/19 14:30 12/22/19 00: 31 Dextrose/Water IV 1,075 mls .[id number] ADALGISA Administration Polyethylene Glycol 17 gm 12/06/19 21:00 12/22/19 09:17 Miralax PO Not Given BID ADALGISA Senna/Docusate Sodium 2 tab 12/05/19 21:00 12/22/19 09:17 Senokot S PO 2 tab BID ADALGISA Administration Sodium Chloride 10 ml 12/01/19 23:09 12/22/19 09:17 Flush - Normal Saline IVF 10 ml PRN PRN Administration Saline Flush Terazosin HCl 1 mg 12/04/19 09:00 12/22/19 09:16 Hytrin PO 1 mg DAILY ADALGISA Administration - Exam General Appearance: awake alert ENT: normocephalic atraumatic Neck: supple Respiratory: normal chest expansion, no tachypnea Gastrointestinal: soft Neurological: cranial nerve grossly intact Hosp A/P (1) Acute CVA (cerebrovascular accident) Code(s): I63.9 - CEREBRAL INFARCTION, UNSPECIFIED Status: Acute (2) Hypernatremia Code(s): E87.0 - HYPEROSMOLALITY AND HYPERNATREMIA Status: Acute (3) Hyperchloremia Code(s): E87.8 - OTH DISORDERS OF ELECTROLYTE AND FLUID BALANCE, NEC Status: Acute (4) LYNN (acute kidney injury) Code(s): N17.9 - ACUTE KIDNEY FAILURE, UNSPECIFIED Status: Acute (5) Aspiration pneumonia Code(s): J69.0 - PNEUMONITIS DUE TO INHALATION OF FOOD AND VOMIT Status: Acute Qualifiers: Aspiration pneumonia type: due to regurgitated food Laterality: bilateral Lung location: lower lobe of lung Qualified Code(s): J69.0 - Pneumonitis due to inhalation of food and vomit (6) Cardiomyopathy Code(s): I42.9 - CARDIOMYOPATHY, UNSPECIFIED Status: Acute Qualifiers: Cardiomyopathy type: unspecified Qualified Code(s): I42.9 - Cardiomyopathy , unspecified (7) DVT (deep venous thrombosis) Code(s): I82.409 - ACUTE EMBOLISM AND THOMBOS UNSP DEEP VN UNSP LOWER EXTREMITY Status: Acute Qualifiers: DVT location: lower extremity Chronicity: acute Laterality: bilateral (8) Physical deconditioning Code(s): R53.81 - OTHER MALAISE Status: Acute (9) Chronic atrial fibrillation Code(s): I48.20 - CHRONIC ATRIAL FIBRILLATION, UNSPECIFIED Status: Chronic (10) Seizure disorder Code(s): G40.909 - EPILEPSY, UNSP, NOT INTRACTABLE, WITHOUT STATUS EPILEPTICUS Status: Chronic (11) Rhabdomyolysis Code(s): M62.82 - RHABDOMYOLYSIS Status: Resolved Qualifiers: Rhabdomyolysis type: non-traumatic Qualified Code(s): M62.82 - Rhabdomyolysis - Plan 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 Status post PEG tube. Tube feeding is at goal 60 mL/h. Acute kidney injury with hypernatremia and hyperchloremia is improving with D5W. Free water flushes to 200 mL every 4 hours. Bilateral lower extremity DVT. On low dose eliquis. Aspiration pneumonia resolving on chest x-ray. No evidence of sepsis. Currently on RA. Seizures likely related to CVA. Continue Keppra. Chronic atrial fibrillation is controlled and on anticoagulation. History of dementia and overall poor functional status given his stroke and multiple organ failure. Case management working on placement.
--- NOTE | 2019-12-22 14:03 | PRG ---
DATE OF SERVICE: 12/22/2019 SUBJECTIVE: This is a 64-year-old gentleman, being seen for acute kidney injury. The patient denied any nausea, vomiting, or chest pain. PHYSICAL EXAMINATION: General: The patient is awake and alert. Vital Signs: Temperature is 100.6, pulse 110, breathing at 16, blood pressure 142/98. HEENT: Head normocephalic and atraumatic. Eyes intact, no ulcers. Nose intact, no ulcers. Ears intact, no ulcers. Neck: Supple. No JVD. Chest: Symmetrical and clear. Cardiovascular: Shows S1 and S2, no rub, no murmur. Gastrointestinal: Abdomen is soft, bowel sounds positive. Extremities: Show no edema or ulcers. Skin: Shows no rash or petechiae. Musculoskeletal: Shows no joint swelling or stiffness. Genitourinary: Shows no Reese or CVA tenderness. Neurologic: Motor intact. Cranial nerves intact. LABORATORY DATA: Reviewed. ASSESSMENT: 1. Acute kidney, improved. 2. Chronic kidney disease, stage 3, stable. 3. Hypertension, stable. 4. Anemia, stable. 5. Medication based on GFR, appropriate. Job ID: [id number]
[2019-12-22 18:31] LABS: Actual Bicarbonate (HCO3a) 26.1 mEq/L (22-28); Base Excess (BEa) 3.5 mEq/L (-2.0 to +3.0); CO2 Tension 33.5 mmHg (35.0-45.0); Calcium, Ionized 1.18 mmol/L (1.12-1.30); Carboxyhemoglobin (COHb) 0.9 gm% (0.0-3.0); Hemoglobin (Hb) 14.3 g/dL (14.0-18.0); O2 Tension (PaO2), arterial 68.4 mmHg (> 80.0); Potassium - ABG Lab 4.01 mmol/L (3.70-5.30); pH, Arterial 7.51 (7.35-7.45)
[2019-12-22 18:32] LABS: Puncture Site LRA
[2019-12-22 18:33] LABS: ALV-art Gradient 39.455 (0-20)
--- NOTE | 2019-12-22 18:43 | RAD ---
Exam: Chest one view HISTORY:Increased respirations Comparison: 12/19/2019 FINDINGS: Cardiac silhouette:Cardiomegaly. Aorta: Unremarkable Pulmonary vessels: Normal Costophrenic angles: Bilateral pleural effusions. LUNGS: Bibasilar opacities which have progressed since the previous examination. Lines and tubes: Interval removal of previous noted left-sided subclavian vascular catheter. Pneumothorax: None Osseous abnormalities: Old left rib fractures. IMPRESSION: 1. Cardiomegaly. 2. Bibasilar pleural and parenchymal changes. Correlate for congestive heart failure. 3. Interval removal of previously noted central venous catheter.
[2019-12-22] MEDS ORDERED: Furosemide 40 MG/4 ML VIAL SLOW IVP SCH (19:00)
[2019-12-22] MEDS: Atorvastatin Calcium 10 MG TAB PO SCH (21:38)
[2019-12-22] MEDS: levETIRAcetam 500 mg/5 ml Oral Solution PER TUBE SCH (21:38)
[2019-12-23] MEDS: Sodium Bicarbonate 75 MEQ in Dextrose 5% in Water 1,000 ML IV SCH (00:06)
[2019-12-23] MEDS: Acetaminophen 650 MG/20.3 ML UDCUP PO PRN ×3 (01:42→20:59)
[2019-12-23 05:08] LABS: Band 10 % (5-11); Hemoglobin 13.9 g/dL (14.0-18.0); INR-International Normal Ratio 1.3; Lymphocytes 13 % (21-51); MDiff Complete? YES; Mean Corpuscular HGB CONC 31.1 g/dL (32.0-36.0); Mean Corpuscular Hemoglobin 30.7 pg (27.0-31.0); Mean Corpuscular Volume 98.9 fL (78.0-98.0); Mean Platelet Volume 11.1 fL (7.4-10.4); Monocytes 5 % (0-10); Neutrophil 72 % (42-75); Platelet Count 126 thou/uL (130-400); Platelet Morphology Comment Appears Adequate; Prothrombin Time 16.5 sec (12.0-14.7); RBC Distribution Width 12.5 % (11.5-14.5); Red Blood Cell (RBC) Count 4.51 mill/uL (4.70-6.10); White Blood Cell (WBC) Count 19.6 thou/uL (4.8-10.8)
[2019-12-23 05:18] LABS: Anion Gap 15 mmol/L (10-20); BUN (Urea Nitrogen) 43 mg/dL (8.4-25.7); Calc. Creatinine Clearance 61 mL/min (70-130); Calcium 8.4 mg/dL (7.8-10.44); Carbon Dioxide 24 mmol/L (23-31); Chloride 108 mmol/L (98-107); Estimated GFR-MDRD 46; Glucose 124 mg/dL (80-115); Sodium 143 mmol/L (136-145)
[2019-12-23] MEDS: Senokot S 8.6-50 MG TAB PO SCH ×2 (07:34→20:59)
[2019-12-23] MEDS: Polyethylene Glycol 3350 17 GM Packet PO SCH ×2 (07:34→20:59)
[2019-12-23] MEDS: Famotidine 20 MG TAB PO SCH (09:02)
[2019-12-23] MEDS: Terazosin HCl 1 MG CAP PO SCH (09:02)
[2019-12-23] MEDS: Apixaban 2.5 MG TAB PO SCH ×2 (09:02→20:59)
[2019-12-23] MEDS: levETIRAcetam 500 mg/5 ml Oral Solution PER TUBE SCH ×2 (09:02→20:59)
[2019-12-23] MEDS: Aspirin 81 mg Enteric Coated Tablet PO SCH (09:02)
[2019-12-23] MEDS: Carvedilol 3.125 MG TAB PO SCH ×2 (09:02→16:40)
[2019-12-23 10:42] LABS: Hemoglobin 14.2 g/dL (14.0-18.0); Platelet Count 130 thou/uL (130-400)
[2019-12-23 11:01] LABS: Lactic Acid 1.4 mmol/L (0.5-2.2)
[2019-12-23] MEDS: Vancomycin HCl 1.75 GM in Sodium Chloride 0.9% 500 ML IVPB SCH (11:05)
[2019-12-23 11:25] LABS: SARS-CoV-2 MS2 Positive; SARS-CoV-2 N Gene Negative; SARS-CoV-2 S Gene Negative; SARS-CoV-2 orf1ab Negative
--- NOTE | 2019-12-23 11:56 | PDOC.HOSPP ---
- Subjective Encounter Date: 12/23/19 Subjective: The patient appears to be in distress this morning. He is tachypneic and tachycardic and has been persistently febrile. - Objective Vital Signs & Weight: Vital Signs (12 hours) Temp Pulse Resp BP BP Pulse Ox 12/23/19 11:05 148/110 H 12/23/19 09:15 96 12/23/19 09:11 102.8 F H 131 H 28 H 174/115 H 96 12/23/19 03:08 100.5 F H 109 H 30 H 137/107 H 96 12/23/19 01:25 102 F H 115 H 30 H 146/101 H 96 Weight Admit Weight 200 lb Weight 198 lb 6.4 oz I&O: 12/22/19 12/23/19 12/24/19 06:59 06:59 06:59 Intake Total 7850.2 4297 Output Total 3075 4675 Balance 4775.2 -378 Result Diagrams: 12/23/19 10:15 12/23/19 04:49 Hospitalist ROS - Medication Medications: Active Medications Generic Name Dose Route Start Last Admin Trade Name Freq PRN Reason Stop Dose Admin Acetaminophen 650 mg 12/14/19 19:43 12/16/19 08:48 Tylenol LA 650 mg Q4H PRN Administration Headache/Fever or Pain Acetaminophen 650 mg 12/20/19 21:22 12/23/19 01:42 Tylenol Elixir PO 650 mg Q4H PRN Administration Headache/Fever /MILD Pain 1-3 Apixaban 2.5 mg 12/21/19 21:00 12/23/19 09:02 Eliquis PO 2.5 mg BID ADALGISA Administration Aspirin 81 mg 12/11/19 09:00 12/23/19 09:02 Ecotrin PO 81 mg DAILY ADALGISA Administration Atorvastatin Calcium 10 mg 12/02/19 21:00 12/22/19 21:38 Lipitor PO 10 mg HS ADALGISA Administration Carvedilol 6.25 mg 12/11/19 17:00 12/23/19 09:02 Coreg PO 6.25 mg BID-WM ADALGISA Administration Famotidine 20 mg 12/17/19 09:00 12/23/19 09:02 Pepcid PO 20 mg DAILY ADALGISA Administration Vancomycin HCl 1.75 gm/ Sodium 500 mls @ 250 mls/hr 12/23/19 11:00 12/23/19 11:05 Chloride IVPB 500 mls 1100 ADALGISA Administration Labetalol HCl 10 mg 12/02/19 00:54 12/22/19 18:05 Normodyne SLOW IVP 10 mg Q4H PRN Administration Systolic BP > 180 Levetiracetam 500 mg 12/22/19 21:00 12/23/19 09:02 Keppra Oral Solution PER TUBE 500 mg BID ADALGISA Administration Polyethylene Glycol 17 gm 12/06/19 21:00 12/23/19 07:34 Miralax PO Not Given BID ADALGISA Senna/Docusate Sodium 2 tab 12/05/19 21:00 12/23/19 07:34 Senokot S PO Not Given BID ADALGISA Sodium Chloride 10 ml 12/01/19 23:09 12/22/19 09:17 Flush - Normal Saline IVF 10 ml PRN PRN Administration Saline Flush Terazosin HCl 1 mg 12/04/19 09:00 12/23/19 09:02 Hytrin PO 1 mg DAILY ADALGISA Administration - Exam General Appearance: ill appearing ENT: normocephalic atraumatic Neck: supple Heart - other findings: Tachycardic with Irregular rhythm Respiratory - other findings: Crackles are heard bilaterally Gastrointestinal: soft Neurological - other findings: The patient is not awake enough to follow commands. Hosp A/P (1) Acute CVA (cerebrovascular accident) Code(s): I63.9 - CEREBRAL INFARCTION, UNSPECIFIED Status: Acute (2) Hypernatremia Code(s): E87.0 - HYPEROSMOLALITY AND HYPERNATREMIA Status: Acute (3) Hyperchloremia Code(s): E87.8 - OTH DISORDERS OF ELECTROLYTE AND FLUID BALANCE, NEC Status: Acute (4) LYNN (acute kidney injury) Code(s): N17.9 - ACUTE KIDNEY FAILURE, UNSPECIFIED Status: Acute (5) Aspiration pneumonia Code(s): J69.0 - PNEUMONITIS DUE TO INHALATION OF FOOD AND VOMIT Status: Acute Qualifiers: Aspiration pneumonia type: due to regurgitated food Laterality: bilateral Lung location: lower lobe of lung Qualified Code(s): J69.0 - Pneumonitis due to inhalation of food and vomit (6) Cardiomyopathy Code(s): I42.9 - CARDIOMYOPATHY, UNSPECIFIED Status: Acute Qualifiers: Cardiomyopathy type: unspecified Qualified Code(s): I42.9 - Cardiomyopathy , unspecified (7) DVT (deep venous thrombosis) Code(s): I82.409 - ACUTE EMBOLISM AND THOMBOS UNSP DEEP VN UNSP LOWER EXTREMITY Status: Acute Qualifiers: DVT location: lower extremity Chronicity: acute Laterality: bilateral (8) Physical deconditioning Code(s): R53.81 - OTHER MALAISE Status: Acute (9) Chronic atrial fibrillation Code(s): I48.20 - CHRONIC ATRIAL FIBRILLATION, UNSPECIFIED Status: Chronic (10) Seizure disorder Code(s): G40.909 - EPILEPSY, UNSP, NOT INTRACTABLE, WITHOUT STATUS EPILEPTICUS Status: Chronic (11) Rhabdomyolysis Code(s): M62.82 - RHABDOMYOLYSIS Status: Resolved Qualifiers: Rhabdomyolysis type: non-traumatic Qualified Code(s): M62.82 - Rhabdomyolysis - Plan 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 Status post PEG tube. Tube feeding is at goal 60 mL/h. Acute kidney injury with hypernatremia and hyperchloremia improved with D5W and free water flushes. I discontinue IV fluids due to new pulmonary edema. The patient is septic. His central line was removed yesterday. 2 sets of blood cultures were ordered. Vancomycin and meropenem has been ordered as well. He became tachypneic starting yesterday. ABG did not show any respiratory acidosis. Lactic acid is pending. Chest x-ray revealed pulmonary edema. A dose of Lasix was given yesterday and another dose will be administered today. We will transfer the patient to the intensive care unit for further monitoring. Bilateral lower extremity DVT. On low dose eliquis. Seizures likely related to CVA. Continue Keppra. Chronic atrial fibrillation is controlled and on anticoagulation. History of dementia and overall poor functional status given his stroke and multiple organ failure. Case management working on placement.
[2019-12-23] MEDS ORDERED: Furosemide 40 MG/4 ML VIAL SLOW IVP SCH (12:00)
[2019-12-23] MEDS: MEROPENEM 1 GM/50 ML 1 GM in Premix Bag 1 BAG IVPB SCH ×2 (12:59→21:00)
[2019-12-23] MEDS ORDERED: Meropenem 1 GM in Sodium Chloride 0.9% 100 ML IVPB SCH (14:00)
--- NOTE | 2019-12-23 19:18 | PRG ---
DATE OF SERVICE: 12/23/2019 SUBJECTIVE: 64-year-old gentleman being seen for acute kidney injury. Patient denied nausea, vomiting, or chest pain. PHYSICAL EXAMINATION: GENERAL: Patient is awake and alert. VITAL SIGNS: Pulse 110, breathing 16, blood pressure 121/88. HEENT: Head normocephalic and atraumatic. Eyes intact, no ulcers. Nose intact, no ulcers. Ears intact, no ulcers. Neck: Supple. No JVD. Chest: Symmetrical and clear. Cardiovascular: Shows S1 and S2, no rub, no murmur. Gastrointestinal: Abdomen is soft, bowel sounds positive. Extremities: Show no edema or ulcers. Skin: Shows no rash or petechiae. Musculoskeletal: Shows no joint swelling or stiffness. Genitourinary: Shows no Reese or CVA tenderness. Neurologic: Motor intact. Cranial nerves intact. LABORATORY DATA: Reviewed. ASSESSMENT AND PLAN: 1. Chronic kidney disease stage 3, stable. 2. Acute kidney injury, resolved. 3. Hypertension, stable. 4. Medication based on GFR appropriate. I will sign off on this patient. Please reconsult as needed. Job ID: [id number]
[2019-12-23] MEDS: Atorvastatin Calcium 10 MG TAB PO SCH (20:59)
[2019-12-23] MEDS ORDERED: Vancomycin 1.5 GRAM/300 ML BAG 1.5 GM in Premix Bag 1 BAG IVPB SCH (21:00)
[2019-12-24 03:39] LABS: INR-International Normal Ratio 1.5; Prothrombin Time 17.6 sec (12.0-14.7)
[2019-12-24 03:49] LABS: Band 3 % (5-11); Eosinophils 1 % (0-10); Hemoglobin 14.1 g/dL (14.0-18.0); Lymphocytes 7 % (21-51); MDiff Complete? YES; Mean Corpuscular HGB CONC 32.5 g/dL (32.0-36.0); Mean Corpuscular Volume 98.4 fL (78.0-98.0); Mean Platelet Volume 11.4 fL (7.4-10.4); Monocytes 2 % (0-10); Neutrophil 87 % (42-75); Platelet Count 126 thou/uL (130-400); Platelet Morphology Comment Appears Adequate; RBC Distribution Width 12.5 % (11.5-14.5); RBC Morphology Normal; Red Blood Cell (RBC) Count 4.42 mill/uL (4.70-6.10); White Blood Cell (WBC) Count 17.9 thou/uL (4.8-10.8)
[2019-12-24 03:53] LABS: Anion Gap 16 mmol/L (10-20); BUN (Urea Nitrogen) 49 mg/dL (8.4-25.7); Calc. Creatinine Clearance 56 mL/min (70-130); Calcium 8.5 mg/dL (7.8-10.44); Carbon Dioxide 26 mmol/L (23-31); Chloride 109 mmol/L (98-107); Estimated GFR-MDRD 42; Glucose 116 mg/dL (80-115); Potassium 4.2 mmol/L (3.5-5.1); Sodium 147 mmol/L (136-145)
[2019-12-24] MEDS: MEROPENEM 1 GM/50 ML 1 GM in Premix Bag 1 BAG IVPB SCH ×3 (06:21→21:07)
[2019-12-24] MEDS: Apixaban 2.5 MG TAB PO SCH ×2 (08:43→21:08)
[2019-12-24] MEDS: Aspirin 81 mg Enteric Coated Tablet PO SCH (08:43)
[2019-12-24] MEDS: Carvedilol 3.125 MG TAB PO SCH ×2 (08:43→16:39)
[2019-12-24] MEDS: Famotidine 20 MG TAB PO SCH (08:43)
[2019-12-24] MEDS: Polyethylene Glycol 3350 17 GM Packet PO SCH ×2 (08:44→21:08)
[2019-12-24] MEDS: levETIRAcetam 500 mg/5 ml Oral Solution PER TUBE SCH ×2 (08:44→21:08)
[2019-12-24] MEDS: Senokot S 8.6-50 MG TAB PO SCH ×2 (08:44→21:08)
[2019-12-24] MEDS: Terazosin HCl 1 MG CAP PO SCH (08:44)
[2019-12-24] MEDS: Vancomycin HCl 1.75 GM in Sodium Chloride 0.9% 500 ML IVPB SCH (10:34)
--- NOTE | 2019-12-24 10:53 | PDOC.HOSPP ---
- Subjective Encounter Date: 12/24/19 non-verbal - Objective Vital Signs & Weight: Vital Signs (12 hours) Temp Pulse Ox 12/24/19 08:00 96 12/24/19 07:12 99.0 F 12/24/19 04:30 98.8 F 12/24/19 00:03 98.0 F Weight Admit Weight 200 lb Weight 195 lb 7 oz Most Recent Monitor Data Heart Rate from ECG 103 NIBP 146/88 NIBP BP-Mean 107 Respiration from ECG 47 SpO2 99 I&O: 12/23/19 12/24/19 12/25/19 06:59 06:59 06:59 Intake Total 4297 2390 Output Total 4657 1240 Balance -378 -910 Result Diagrams: 12/24/19 03:06 12/24/19 03:06 Hospitalist ROS - Medication Medications: Active Medications Generic Name Dose Route Start Last Admin Trade Name Freq PRN Reason Stop Dose Admin Acetaminophen 650 mg 12/14/19 19:43 12/16/19 08:48 Tylenol [place] 650 mg Q4H PRN Administration Headache/Fever or Pain Acetaminophen 650 mg 12/20/19 21:22 12/23/19 20:59 Tylenol Elixir PO 650 mg Q4H PRN Administration Headache/Fever /MILD Pain 1-3 Apixaban 2.5 mg 12/21/19 21:00 12/24/19 08:43 Eliquis PO 2.5 mg BID ADALGISA Administration Aspirin 81 mg 12/11/19 09:00 12/24/19 08:43 Ecotrin PO 81 mg DAILY ADALGISA Administration Atorvastatin Calcium 10 mg 12/02/19 21:00 12/23/19 20:59 Lipitor PO 10 mg HS ADALGISA Administration Carvedilol 6.25 mg 12/11/19 17:00 12/24/19 08:43 Coreg PO 6.25 mg BID-WM ADALGISA Administration Famotidine 20 mg 12/17/19 09:00 12/24/19 08:43 Pepcid PO 20 mg DAILY ADALGISA Administration Vancomycin HCl 1.75 gm/ Sodium 500 mls @ 250 mls/hr 12/23/19 11:00 12/24/19 10:34 Chloride IVPB 500 mls 1100 ADALGISA Administration Meropenem 1 gm/ Device 50 mls @ 100 mls/hr 12/23/19 14:00 12/24/19 06:21 IVPB 50 mls Q8HR ADALGISA Administration Labetalol HCl 10 mg 12/02/19 00:54 12/22/19 18:05 Normodyne SLOW IVP 10 mg Q4H PRN Administration Systolic BP > 180 Levetiracetam 500 mg 12/22/19 21:00 12/24/19 08:44 Keppra Oral Solution PER TUBE 500 mg BID ADALGISA Administration Polyethylene Glycol 17 gm 12/06/19 21:00 12/24/19 08:44 Miralax PO Not Given BID ADALGISA Senna/Docusate Sodium 2 tab 12/05/19 21:00 12/24/19 08:44 Senokot S PO Not Given BID ADALGISA Sodium Chloride 10 ml 12/01/19 23:09 12/23/19 20:59 Flush - Normal Saline IVF 10 ml PRN PRN Administration Saline Flush Terazosin HCl 1 mg 12/04/19 09:00 12/24/19 08:44 Hytrin PO 1 mg DAILY ADALGISA Administration - Exam General Appearance: awake alert, ill appearing ENT: normocephalic atraumatic Neck: supple Heart - other findings: TACHYCARDIA Respiratory: CTAB, normal chest expansion, normal percussion Gastrointestinal: soft, normal bowel sounds Neurological: cranial nerve grossly intact Hosp A/P (1) Acute CVA (cerebrovascular accident) Code(s): I63.9 - CEREBRAL INFARCTION, UNSPECIFIED Status: Acute (2) Hypernatremia Code(s): E87.0 - HYPEROSMOLALITY AND HYPERNATREMIA Status: Acute (3) Hyperchloremia Code(s): E87.8 - OTH DISORDERS OF ELECTROLYTE AND FLUID BALANCE, NEC Status: Acute (4) LYNN (acute kidney injury) Code(s): N17.9 - ACUTE KIDNEY FAILURE, UNSPECIFIED Status: Acute (5) Aspiration pneumonia Code(s): J69.0 - PNEUMONITIS DUE TO INHALATION OF FOOD AND VOMIT Status: Acute Qualifiers: Aspiration pneumonia type: due to regurgitated food Laterality: bilateral Lung location: lower lobe of lung Qualified Code(s): J69.0 - Pneumonitis due to inhalation of food and vomit (6) Cardiomyopathy Code(s): I42.9 - CARDIOMYOPATHY, UNSPECIFIED Status: Acute Qualifiers: Cardiomyopathy type: unspecified Qualified Code(s): I42.9 - Cardiomyopathy , unspecified (7) DVT (deep venous thrombosis) Code(s): I82.409 - ACUTE EMBOLISM AND THOMBOS UNSP DEEP VN UNSP LOWER EXTREMITY Status: Acute Qualifiers: DVT location: lower extremity Chronicity: acute Laterality: bilateral (8) Physical deconditioning Code(s): R53.81 - OTHER MALAISE Status: Acute (9) Chronic atrial fibrillation Code(s): I48.20 - CHRONIC ATRIAL FIBRILLATION, UNSPECIFIED Status: Chronic (10) Seizure disorder Code(s): G40.909 - EPILEPSY, UNSP, NOT INTRACTABLE, WITHOUT STATUS EPILEPTICUS Status: Chronic (11) Rhabdomyolysis Code(s): M62.82 - RHABDOMYOLYSIS Status: Resolved Qualifiers: Rhabdomyolysis type: non-traumatic Qualified Code(s): M62.82 - Rhabdomyolysis - Plan 12/22: 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 Status post PEG tube. Tube feeding is at goal 60 mL/h. Acute kidney injury with hypernatremia and hyperchloremia improved with D5W and free water flushes. I discontinue IV fluids due to new pulmonary edema. The patient is septic. His central line was removed yesterday. 2 sets of blood cultures were ordered. Vancomycin and meropenem has been ordered as well. He became tachypneic starting yesterday. ABG did not show any respiratory acidosis. Lactic acid is pending. Chest x-ray revealed pulmonary edema. A dose of Lasix was given yesterday and another dose will be administered today. We will transfer the patient to the intensive care unit for further monitoring. Bilateral lower extremity DVT. On low dose eliquis. Seizures likely related to CVA. Continue Keppra. Chronic atrial fibrillation is controlled and on anticoagulation. History of dementia and overall poor functional status given his stroke and multiple organ failure. Case management working on placement. 12/23: The patient was transitioned to the [facility] yesterday due to deterioration of his condition but with due to sepsis. Hip sepsis is improving on broad-spectrum antibiotics today. He saturating well on room air. Remains altered. Tolerating tube feeding. I will obtain a CT scan of his head to assess progression of his CVA. The patient is on low-dose Eliquis. Clonidine 0.1mg 3 times daily for uncontrolled hypertension.
--- NOTE | 2019-12-24 12:21 | PRG ---
DATE OF SERVICE: 12/24/2019 SUBJECTIVE: A 64-year-old gentleman being seen for acute kidney injury. The patient denied nausea, vomiting, or chest pain. OBJECTIVE: GENERAL: The patient is awake. The patient is resting. VITAL SIGNS: Afebrile, pulse 80, breathing at 16, and blood pressure 146/88. HEENT: Head normocephalic and atraumatic. Eyes intact, no ulcers. Nose intact, no ulcers. Ears intact, no ulcers. Neck: Supple. No JVD. Chest: Symmetrical and clear. Cardiovascular: Shows S1 and S2, no rub, no murmur. Gastrointestinal: Abdomen is soft, bowel sounds positive. Extremities: Show no edema or ulcers. Skin: Shows no rash or petechiae. Musculoskeletal: Shows no joint swelling or stiffness. Genitourinary: Shows no Reese or CVA tenderness. Neurologic: The patient is resting. LABORATORY DATA: Hemoglobin 14.1. Sodium is 147, creatinine 1.6. ASSESSMENT: 1. Chronic kidney disease stage 3, stable. 2. Acute kidney injury, stable. 3. Hypernatremia. Recommend starting free water and rechecking sodium at 4 p.m. Job ID: [id number]
--- NOTE | 2019-12-24 12:42 | CT ---
CT BRAIN WITHOUT CONTRAST: Date: 12/24/2019 HISTORY: Altered mental status, recent CVA follow-up. COMPARISON: 12/17/2019. FINDINGS: Expected changes of evolution of the acute left frontal lobe infarction are seen without hemorrhagic transformation. Old right frontotemporal infarction is stable. Ventricular size is stable and the bas ilar cisterns are patent. The bony calvarium is intact. The visualized paranasal sinuses and mastoid air cells are well aerated. IMPRESSION: 1. No evidence of hemorrhagic transformation of the evolving acute left frontal infarction since . 2. Stable old right MCA infarction. POS: C
[2019-12-24] MEDS: Dextrose 5% in Water 1,000 ML IV SCH (14:11)
[2019-12-24] MEDS: cloNIDine 0.1 MG TAB PO SCH ×2 (14:11→21:07)
--- NOTE | 2019-12-24 14:32 | CON ---
DATE OF CONSULTATION: HISTORY OF PRESENT ILLNESS: Robert Saini is a 64-year-old prisoner from the local [facility] here, who has been 23 days in the hospital. As of yesterday, he was tachypneic, tachycardic, and febrile. He was transferred to a step-down MICU unit on the reason for consultation. His last CT showed evidence of stable acute left MCA infarct. Chest x-ray yesterday shows nonspecific findings. No obvious consolidation was seen. Bibasilar parenchymal changes. His EF is 30%. He is aphasic, but he does nod when you ask him a question. He has had ultrasound done of his leg, which showed bilateral lower extremity DVT. He is on low-dose Eliquis 2.5 mg twice a day just for his renal failure. He now has positive blood cultures from his central line. The patient is an inmate from [facility], who had a PEG placed in. PAST MEDICAL HISTORY: 1. Hepatitis C. 2. Atrial fibrillation. 3. Dementia. 4. BPH. 5. CHF 30%. 6. CVA, bilateral. PAST SURGICAL HISTORY: Otherwise unknown. SOCIAL AND FAMILY HISTORY: Otherwise unknown. HOME MEDICINES: 1. 250. 2. Terazosin 1 mg. 3. Keppra 500 twice a day. 4. Cymbalta 30. 5. Entresto 1 tablet twice a day. 6. Coreg 6.25. 7. Lipitor 10. 8. Aspirin 81. He is now started on vancomycin and meropenem. Awaiting additional cultures. ALLERGIES: NONE. REVIEW OF SYSTEMS: Difficult to obtain. PHYSICAL EXAMINATION: VITAL SIGNS: He is clearly afebrile. Temperature 99, saturations 98% ____ on room air, respiratory rate is 40, blood pressure 146/88. CHEST: Decreased breath sounds. No wheezing. CARDIAC: Normal S1, S2. No gallops. ABDOMEN: No masses. LABORATORY DATA: White count 17,000, H and H of 14 and 43, with platelet count of 126. Creatinine is 1.64, BUN is 49. Blood culture, coagulase negative Staph right arm. IMPRESSION: 1. Tachypnea and tachycardia, possibly sepsis related. 2. Cerebrovascular accident, new. 3. Deep venous thrombosis, on long-term anticoagulation. 4. Cardiomyopathy, EF 30%. PLAN: Difficult situation. I will continue antibiotics to see whether this improves his respiratory drive. He is a full code. He is in the [facility]. We have no one to make a decision on the patient. We have asked Palliative Care to see the patient to see whether there is any way we can try and make him a DNR with appropriate intervention from the snf system. May consider repeating CT of chest to rule out PE and a CT of head to see whether he has worsening infarct. TIME SPENT: This is a 70-minute consultation note, 50% of direct patient care. Job ID: [id number]
[2019-12-24] MEDS: Acetaminophen 650 MG/20.3 ML UDCUP PO PRN (16:39)
[2019-12-24] MEDS: Atorvastatin Calcium 10 MG TAB PO SCH (21:07)
[2019-12-25] MEDS: Acetaminophen 650 MG/20.3 ML UDCUP PO PRN ×2 (00:29→09:54)
[2019-12-25] MEDS: MEROPENEM 1 GM/50 ML 1 GM in Premix Bag 1 BAG IVPB SCH ×3 (05:59→22:42)
[2019-12-25 06:45] LABS: INR-International Normal Ratio 1.2; Prothrombin Time 14.7 sec (12.0-14.7)
[2019-12-25 07:05] LABS: Anion Gap 13 mmol/L (10-20); BUN (Urea Nitrogen) 47 mg/dL (8.4-25.7); Calc. Creatinine Clearance 56 mL/min (70-130); Calcium 8.9 mg/dL (7.8-10.44); Carbon Dioxide 28 mmol/L (23-31); Chloride 108 mmol/L (98-107); Estimated GFR-MDRD 43; Glucose 115 mg/dL (80-115); Potassium 4.3 mmol/L (3.5-5.1); Sodium 145 mmol/L (136-145)
[2019-12-25 07:48] LABS: Band 3 % (5-11); Hemoglobin 14.4 g/dL (14.0-18.0); Large Platelets SLIGHT; Lymphocytes 8 % (21-51); MDiff Complete? YES; Mean Corpuscular HGB CONC 30.2 g/dL (32.0-36.0); Mean Corpuscular Hemoglobin 30.4 pg (27.0-31.0); Mean Platelet Volume 11.1 fL (7.4-10.4); Monocytes 2 % (0-10); Neutrophil 86 % (42-75); Platelet Count 158 thou/uL (130-400); Platelet Morphology Comment Appears Adequate; RBC Distribution Width 12.8 % (11.5-14.5); RBC Morphology Normal; Red Blood Cell (RBC) Count 4.74 mill/uL (4.70-6.10); White Blood Cell (WBC) Count 10.2 thou/uL (4.8-10.8)
[2019-12-25] MEDS: Senokot S 8.6-50 MG TAB PO SCH ×2 (09:34→20:30)
[2019-12-25] MEDS: Polyethylene Glycol 3350 17 GM Packet PO SCH ×2 (09:34→20:29)
[2019-12-25] MEDS: levETIRAcetam 500 mg/5 ml Oral Solution PER TUBE SCH ×2 (09:47→20:30)
[2019-12-25] MEDS: Famotidine 20 MG TAB PO SCH (09:48)
[2019-12-25] MEDS: cloNIDine 0.1 MG TAB PO SCH ×3 (09:48→20:30)
[2019-12-25] MEDS: Terazosin HCl 1 MG CAP PO SCH (09:48)
[2019-12-25] MEDS: Apixaban 2.5 MG TAB PO SCH ×2 (09:48→20:30)
[2019-12-25] MEDS: Aspirin 81 mg Enteric Coated Tablet PO SCH (09:49)
[2019-12-25] MEDS: Carvedilol 3.125 MG TAB PO SCH ×2 (09:49→18:33)
--- NOTE | 2019-12-25 10:23 | PRG ---
DATE OF SERVICE: 12/25/2019 SUBJECTIVE: Robert Saini is a 64-year-old gentleman. OBJECTIVE: VITAL SIGNS: Temperature 99, blood pressure 141/113, pulse 112, sats 90%. Breathing rapidly at 40 minute. CHEST: Decreased breath sounds, no wheezing. CARDIAC: Normal S1, S2. No gallops. ABDOMEN: No masses. LABORATORY DATA: Creatinine is 1.6, BUN 47. ASSESSMENT: Deep venous thrombosis. Cerebrovascular accident. Resting tachypnea and tachycardia. We are in the process of trying to see, if we can make him a DNR. e was started on broad-spectrum antibiotics assuming he may be septic. As of today, he has coagulase-negative staph in the blood, probably contamination. I will continue antibiotics until we have cultures back. If his renal function improves, we may consider doing his CT pulmonary angio to rule out pulmonary emboli. Even though he is on Eliquis, if he has one, he may require a filter. PROGNOSIS: Guarded. Job ID: [id number]
[2019-12-25 10:51] LABS: Platelet Count 156 thou/uL (130-400)
[2019-12-25] MEDS ORDERED: cloNIDine 0.1 MG TAB PO SCH (11:05)
[2019-12-25 11:10] LABS: Vancomycin, Trough 17.6 ug/mL
--- NOTE | 2019-12-25 12:23 | PRG ---
DATE OF SERVICE: 12/25/2019 SUBJECTIVE: A 64-year-old gentleman being seen for acute kidney injury. The patient is resting and comatose. OBJECTIVE: VITAL SIGNS: On exam, the patient is afebrile, pulse 112, breathing is 16, and blood pressure 160/112. HEENT: Head normocephalic and atraumatic. Eyes intact, no ulcers. Nose intact, no ulcers. Ears intact, no ulcers. NECK: Supple. No JVD. CHEST: Symmetrical and clear. CARDIOVASCULAR: Shows S1 and S2, no rub, no murmur. GASTROINTESTINAL: Abdomen is soft, bowel sounds positive. EXTREMITIES: Show no edema or ulcers. SKIN: Shows no rash or petechiae. MUSCULOSKELETAL: Shows no joint swelling or stiffness. GENITOURINARY: Shows no Reese or CVA tenderness. NEUROLOGIC: Motor intact. Cranial nerves intact. LABORATORY DATA: Labs show hemoglobin 14. Creatinine is 1.6. ASSESSMENT AND PLAN: 1. Chronic kidney disease, stage 3, stable. 2. Hypertension, stable. 3. Hyperlipidemia, resolved. 4. Hypernatremia, resolved. The patient has multiorgan failure and I would recommend palliative care to follow. I will sign off on this patient. Please reconsult as needed. Job ID: [id number]
[2019-12-25] MEDS: Vancomycin HCl 1.75 GM in Sodium Chloride 0.9% 500 ML IVPB SCH (12:37)
[2019-12-25] MEDS: Dextrose 5% in Water 1,000 ML IV SCH (12:37)
--- NOTE | 2019-12-25 13:52 | PDOC.PALPN ---
Palliative Progress Note - Subjective non responsive at time of assessment. - Objective Vital Signs: Vital Signs - Most Recent Temp Pulse Resp BP Pulse Ox 98.2 F 131 H 28 H 160/112 H 95 12/25/19 11:11 12/23/19 09:11 12/23/19 09:11 12/25/19 12:31 12/25/19 08:00 - Physical Exam Constitutional: encephalitic, ill appearing HEENT: moist MMs Respiratory: unlabored breathing, diminished lung sound, tachypnea Cardiovascular: RRR Gastrointestinal: soft, non-tender Genitourinary: guillen catheter Musculoskeletal: no cyanosis, no clubbing, diffuse muscle atrophy Skin: cap refill <2 seconds Deviation from normal: Pallor Deviation from normal: encephalopathic - Assessment (1) Palliative care encounter Code(s): Z51.5 - ENCOUNTER FOR PALLIATIVE CARE Current Visit: Yes Status: Acute (2) Physical deconditioning Code(s): R53.81 - OTHER MALAISE Current Visit: Yes Status: Acute (3) Acute CVA (cerebrovascular accident) Code(s): I63.9 - CEREBRAL INFARCTION, UNSPECIFIED Current Visit: Yes Status : Acute (4) Chronic atrial fibrillation Code(s): I48.20 - CHRONIC ATRIAL FIBRILLATION, UNSPECIFIED Current Visit: Yes Status: Chronic - Plan Plan: Palliative Care communicated again with [place] and no family for patient. As per warden and utilization review all decisions can be made by agreement of two physicians. If decided to seek comfort measures Case Management can communicate with Utilization Review for [facility] system and coordinate transition to system inpatient. Relayed to Dr Timmons, also communicated with Dr Leroy [40] minutes spent on this encounter with >50% of the time in counseling and coordination of care. - ROS Non Response: due to mental status
--- NOTE | 2019-12-25 14:47 | PDOC.EVN ---
Event Note - Event Note Event Note: I was asked by Dr. Timmons to evaluate re: prognosis. Chart reviewed and patient seen. Pt is unresponsive. Prognosis extremely poor, and chances of successful resuscitation in case of cardiopulmonary arrest are low. Agree with DNAR status.
--- NOTE | 2019-12-25 18:34 | PDOC.HOSPP ---
- Subjective Encounter Date: 12/25/19 Subjective: Remains poorly responsive. - Objective Vital Signs & Weight: Vital Signs (12 hours) Temp BP Pulse Ox 12/25/19 15:31 99.2 F 12/25/19 15:06 141/96 H 12/25/19 12:31 160/112 H 12/25/19 11:11 98.2 F 12/25/19 09:48 160/112 H 12/25/19 08:00 95 12/25/19 07:25 99.7 F H Weight Admit Weight 200 lb Weight 192 lb 7 oz Most Recent Monitor Data Heart Rate from ECG 121 NIBP 162/133 NIBP BP-Mean 142 Respiration from ECG 28 SpO2 93 I&O: 12/24/19 12/25/19 12/26/19 06:59 06:59 06:59 Intake Total 2390 4141 900 Output Total 3300 1700 Balance -910 2441 900 Result Diagrams: 12/25/19 10:36 12/25/19 06:29 Hospitalist ROS - Medication Medications: Active Medications Generic Name Dose Route Start Last Admin Trade Name Freq PRN Reason Stop Dose Admin Acetaminophen 650 mg 12/14/19 19:43 12/16/19 08:48 Tylenol AR 650 mg Q4H PRN Administration Headache/Fever or Pain Acetaminophen 650 mg 12/20/19 21:22 12/25/19 09:54 Tylenol Elixir PO 650 mg Q4H PRN Administration Headache/Fever /MILD Pain 1-3 Apixaban 2.5 mg 12/21/19 21:00 12/25/19 09:48 Eliquis PO 2.5 mg BID ADALGISA Administration Aspirin 81 mg 12/11/19 09:00 12/25/19 09:49 Ecotrin PO 81 mg DAILY ADALGISA Administration Atorvastatin Calcium 10 mg 12/02/19 21:00 12/24/19 21:07 Lipitor PO 10 mg HS ADALGISA Administration Carvedilol 6.25 mg 12/11/19 17:00 12/25/19 09:49 Coreg PO 6.25 mg BID-WM ADALGISA Administration Clonidine 0.2 mg 12/25/19 15:00 12/25/19 15:06 Catapres PO 0.2 mg TID ADALGISA Administration Famotidine 20 mg 12/17/19 09:00 12/25/19 09:48 Pepcid PO 20 mg DAILY ADALGISA Administration Vancomycin HCl 1.75 gm/ Sodium 500 mls @ 250 mls/hr 12/23/19 11:00 12/25/19 12:37 Chloride IVPB 500 mls 1100 ADALGISA Administration Meropenem 1 gm/ Device 50 mls @ 100 mls/hr 12/23/19 14:00 12/25/19 15:06 IVPB 50 mls Q8HR ADALGISA Administration Dextrose/Water 1,000 mls @ 30 mls/hr 12/24/19 11:00 12/25/19 12:37 D5w IV 1,000 mls .Q24H ADALGISA Administration Labetalol HCl 10 mg 12/02/19 00:54 12/22/19 18:05 Normodyne SLOW IVP 10 mg Q4H PRN Administration Systolic BP > 180 Levetiracetam 500 mg 12/22/19 21:00 12/25/19 09:47 Keppra Oral Solution PER TUBE 500 mg BID ADALGISA Administration Polyethylene Glycol 17 gm 12/06/19 21:00 12/25/19 09:34 Miralax PO Not Given BID ADALGISA Senna/Docusate Sodium 2 tab 12/05/19 21:00 12/25/19 09:34 Senokot S PO Not Given BID ADALGSIA Sodium Chloride 10 ml 12/01/19 23:09 12/24/19 21:07 Flush - Normal Saline IVF 10 ml PRN PRN Administration Saline Flush Terazosin HCl 1 mg 12/04/19 09:00 12/25/19 09:48 Hytrin PO 1 mg DAILY ADALGISA Administration - Exam General Appearance: ill appearing ENT: normocephalic atraumatic Neck: supple Heart: RRR Respiratory: rhonchi, tachypneic Gastrointestinal: soft, non-tender Neurological - other findings: GCS is 8 Hosp A/P (1) Acute CVA (cerebrovascular accident) Code(s): I63.9 - CEREBRAL INFARCTION, UNSPECIFIED Status: Acute (2) Hypernatremia Code(s): E87.0 - HYPEROSMOLALITY AND HYPERNATREMIA Status: Acute (3) Hyperchloremia Code(s): E87.8 - OTH DISORDERS OF ELECTROLYTE AND FLUID BALANCE, NEC Status: Acute (4) LYNN (acute kidney injury) Code(s): N17.9 - ACUTE KIDNEY FAILURE, UNSPECIFIED Status: Acute (5) Aspiration pneumonia Code(s): J69.0 - PNEUMONITIS DUE TO INHALATION OF FOOD AND VOMIT Status: Acute Qualifiers: Aspiration pneumonia type: due to regurgitated food Laterality: bilateral Lung location: lower lobe of lung Qualified Code(s): J69.0 - Pneumonitis due to inhalation of food and vomit (6) Cardiomyopathy Code(s): I42.9 - CARDIOMYOPATHY, UNSPECIFIED Status: Acute Qualifiers: Cardiomyopathy type: unspecified Qualified Code(s): I42.9 - Cardiomyopathy , unspecified (7) DVT (deep venous thrombosis) Code(s): I82.409 - ACUTE EMBOLISM AND THOMBOS UNSP DEEP VN UNSP LOWER EXTREMITY Status: Acute Qualifiers: DVT location: lower extremity Chronicity: acute Laterality: bilateral (8) Physical deconditioning Code(s): R53.81 - OTHER MALAISE Status: Acute (9) Chronic atrial fibrillation Code(s): I48.20 - CHRONIC ATRIAL FIBRILLATION, UNSPECIFIED Status: Chronic (10) Seizure disorder Code(s): G40.909 - EPILEPSY, UNSP, NOT INTRACTABLE, WITHOUT STATUS EPILEPTICUS Status: Chronic (11) Rhabdomyolysis Code(s): M62.82 - RHABDOMYOLYSIS Status: Resolved Qualifiers: Rhabdomyolysis type: non-traumatic Qualified Code(s): M62.82 - Rhabdomyolysis - Plan 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 Remains poorly responsive with Abby Coma Scale of 8. CODE STATUS changed to DNR. Status post PEG tube. Tube feeding is at goal 60 mL/h. Acute kidney injury with hypernatremia and hyperchloremia improved with D5W and free water flushes. Discontinue IV fluids due to new pulmonary edema. The patient Was transitioned to IMCU due to sepsis that appears to be improving on IV antibiotics. Continue Vancomycin and meropenem. Chest x-ray revealed pulmonary edema. Low dose lasix initiated. Bilateral lower extremity DVT. On low dose eliquis. Seizures likely related to CVA. Continue Keppra. Chronic atrial fibrillation is controlled and on anticoagulation. History of dementia and overall poor functional status given his stroke and multiple organ failure.
[2019-12-25] MEDS: Atorvastatin Calcium 10 MG TAB PO SCH (20:30)
[2019-12-26] MEDS ORDERED: Morphine 2 MG/ML SYRINGE SLOW IVP SCH (02:30)
[2019-12-26] MEDS: MEROPENEM 1 GM/50 ML 1 GM in Premix Bag 1 BAG IVPB SCH (05:18)
[2019-12-26] MEDS: Polyethylene Glycol 3350 17 GM Packet PO SCH ×2 (10:18→21:59)
[2019-12-26] MEDS: Senokot S 8.6-50 MG TAB PO SCH ×2 (10:18→21:59)
[2019-12-26] MEDS: Aspirin 81 mg Enteric Coated Tablet PO SCH (10:19)
[2019-12-26] MEDS: cloNIDine 0.1 MG TAB PO SCH ×3 (10:19→21:59)
[2019-12-26] MEDS: Famotidine 20 MG TAB PO SCH (10:19)
[2019-12-26] MEDS: Apixaban 2.5 MG TAB PO SCH (10:19)
[2019-12-26] MEDS: Terazosin HCl 1 MG CAP PO SCH (10:19)
[2019-12-26] MEDS: Carvedilol 3.125 MG TAB PO SCH ×2 (10:19→17:32)
[2019-12-26] MEDS: levETIRAcetam 500 mg/5 ml Oral Solution PER TUBE SCH ×2 (10:20→22:14)
[2019-12-26] MEDS: Furosemide 20 MG/2 ML VIAL SLOW IVP SCH (10:20)
[2019-12-26] MEDS: Vancomycin HCl 1.75 GM in Sodium Chloride 0.9% 500 ML IVPB SCH (10:21)
[2019-12-26] MEDS: Dextrose 5% in Water 1,000 ML IV SCH (10:21)
--- NOTE | 2019-12-26 13:31 | PRG ---
DATE OF SERVICE: 12/26/2019 SUBJECTIVE: Robert Saini remains afebrile. OBJECTIVE: VITAL SIGNS: Heart rate is 108, blood pressure 151/107, respiratory rates in the high 20s. NEUROLOGIC: He has signs of severe muscle weakness. He is dysarthric. LUNGS: He has rhonchi bilaterally. HEART: Regular rhythm. ABDOMEN: Soft. LABORATORY DATA: Hemoglobin was 14 yesterday and there is no lab today. IMPRESSION: Apparently, the warden has informed the hospital staff that there is no family to make decisions. After discussing with my associate, reviewing the records, and talking with the hospitalist, I believe this is a situation, where palliative care is the best option. Two doctors have signed a do not resuscitate status. His code status will be changed to DNR. We will continue with comfort measures. Job ID: [id number]
[2019-12-26] MEDS: Morphine 2 MG/ML SYRINGE SLOW IVP PRN ×2 (14:58→22:26)
--- NOTE | 2019-12-26 17:23 | PDOC.HOSPP ---
- Subjective Encounter Date: 12/26/19 Encounter Time: 17:20 Subjective: f/u for L frontal territorial CVA with dysarthria, poorly responsive. Converting comfort measures/DNAR. - Objective Vital Signs & Weight: Vital Signs (12 hours) Temp BP Pulse Ox 12/26/19 15:42 99.3 F 12/26/19 11:55 99.1 F 12/26/19 10:19 141/96 H 12/26/19 08:00 98.6 F 95 Weight Admit Weight 200 lb Weight 183 lb 6.4 oz Most Recent Monitor Data Heart Rate from ECG 96 NIBP 106/90 NIBP BP-Mean 95 Respiration from ECG 26 SpO2 93 I&O: 12/25/19 12/26/19 12/27/19 06:59 06:59 06:59 Intake Total 4141 5332 900 Output Total 1700 2350 Balance 2441 2982 900 Result Diagrams: 12/25/19 10:36 12/25/19 06:29 Additional Labs: Microbiology 12/24/19 15:10 Stool C. difficile GDH Antigen & Toxins - Final 12/23/19 00:43 Venous blood - Right Arm Blood Culture - Final Coagulase Neg Staphylococcus 12/14/19 22:27 Urine guillen catheter Urine Culture - Final Escherichia coli 12/23/19 00:44 Venous blood - Left Hand Blood Culture - Preliminary NO GROWTH AT 48 HOURS 12/01/19 22:11 Venous blood - Left Hand Blood Culture - Preliminary Specimen has been received and culture in progress. No Growth to date. 12/01/19 22:11 Venous blood - Left Hand Blood Culture - Preliminary NO GROWTH AT 48 HOURS 12/01/19 21:42 Venous blood - Left Hand Blood Culture - Preliminary Specimen has been received and culture in progress. No Growth to date. 12/01/19 21:42 Venous blood - Left Hand Blood Culture - Preliminary NO GROWTH AT 48 HOURS Laboratory Tests 12/01/19 12/01/19 12/01/19 17:30 17:30 21:48 WBC Sodium Creatinine Lactic Acid 1.2 Magnesium 1.8 AST 55 H Creatine Kinase 2595 H TSH 3rd Generation COVID-19 PCR 12/01/19 12/02/19 12/02/19 22:25 05:09 05:09 WBC Sodium Creatinine Lactic Acid Magnesium 1.7 AST 58 H Creatine Kinase 2558 H TSH 3rd Generation 1.0758 COVID-19 PCR Not Detected 12/22/19 12/23/19 12/24/19 05:19 04:49 03:06 WBC Sodium 147 H Creatinine 1.69 H 1.53 H 1.64 H Lactic Acid Magnesium AST Creatine Kinase TSH 3rd Generation COVID-19 PCR 12/24/19 03:06 WBC 17.9 H Sodium Creatinine Lactic Acid Magnesium AST Creatine Kinase TSH 3rd Generation COVID-19 PCR Radiology Reviewed by me: Yes (CT brain - L frontal CVA, old R frontotemporal CVA) EKG Reviewed by me: Yes (Tele - SR) Hospitalist ROS - Medication Medications: Active Medications Generic Name Dose Route Start Last Admin Trade Name Freq PRN Reason Stop Dose Admin Acetaminophen 650 mg 12/14/19 19:43 12/16/19 08:48 Tylenol MT 650 mg Q4H PRN Administration Headache/Fever or Pain Acetaminophen 650 mg 12/20/19 21:22 12/25/19 09:54 Tylenol Elixir PO 650 mg Q4H PRN Administration Headache/Fever /MILD Pain 1-3 Aspirin 81 mg 12/11/19 09:00 12/26/19 10:19 Ecotrin PO 81 mg DAILY ADALGISA Administration Carvedilol 6.25 mg 12/11/19 17:00 12/26/19 10:19 Coreg PO 6.25 mg BID-WM ADALGISA Administration Clonidine 0.2 mg 12/25/19 15:00 12/26/19 10:19 Catapres PO 0.2 mg TID ADALGISA Administration Furosemide 20 mg 12/26/19 09:00 12/26/19 10:20 Lasix SLOW IVP 20 mg DAILY ADALGISA Administration Dextrose/Water 1,000 mls @ 30 mls/hr 12/24/19 11:00 12/26/19 10:21 D5w IV 1,000 mls .Q24H ADALGISA Administration Labetalol HCl 10 mg 12/02/19 00:54 12/22/19 18:05 Normodyne SLOW IVP 10 mg Q4H PRN Administration Systolic BP > 180 Levetiracetam 500 mg 12/22/19 21:00 12/26/19 10:20 Keppra Oral Solution PER TUBE 500 mg BID ADALGISA Administration Morphine Sulfate 2 mg 12/26/19 10:43 12/26/19 14:58 Morphine SLOW IVP 2 mg Q4H PRN Administration Anxiety/Restlessness/Sleep Polyethylene Glycol 17 gm 12/06/19 21:00 12/26/19 10:18 Miralax PO 17 gm BID ADALGISA Administration Senna/Docusate Sodium 2 tab 12/05/19 21:00 12/26/19 10:18 Senokot S PO 2 tab BID ADALGISA Administration Sodium Chloride 10 ml 12/01/19 23:09 12/24/19 21:07 Flush - Normal Saline IVF 10 ml PRN PRN Administration Saline Flush Terazosin HCl 1 mg 12/04/19 09:00 12/26/19 10:19 Hytrin PO 1 mg DAILY ADALGISA Administration - Exam General Appearance: ill appearing General - other findings: lethargic Eye: PERRL, anicteric sclera ENT: normocephalic atraumatic, no oropharyngeal lesions Neck: supple, symmetric, no JVD, no thyromegaly Heart: RRR, no murmur, no gallops, no rubs, normal peripheral pulses Heart - other findings: S1, S2 Respiratory: rales, rhonchi, tachypneic Gastrointestinal: soft, non-tender, non-distended, normal bowel sounds Extremities: no cyanosis, no clubbing, no edema Neurological: no new deficit Neurological - other findings: dysarthric, minimally responsive Psychiatric: somnolent, lethargic Hosp A/P (1) Acute CVA (cerebrovascular accident) Code(s): I63.9 - CEREBRAL INFARCTION, UNSPECIFIED Status: Acute (2) Expressive aphasia Code(s): R47.01 - APHASIA Status: Acute (3) Acute metabolic encephalopathy Code(s): G93.41 - METABOLIC ENCEPHALOPATHY Status: Acute (4) Rhabdomyolysis Code(s): M62.82 - RHABDOMYOLYSIS Status: Resolved Qualifiers: Rhabdomyolysis type: non-traumatic Qualified Code(s): M62.82 - Rhabdomyolysis (5) Chronic atrial fibrillation Code(s): I48.20 - CHRONIC ATRIAL FIBRILLATION, UNSPECIFIED Status: Chronic (6) Cardiomyopathy Code(s): I42.9 - CARDIOMYOPATHY, UNSPECIFIED Status: Acute Qualifiers: Cardiomyopathy type: unspecified Qualified Code(s): I42.9 - Cardiomyopathy , unspecified (7) HTN (hypertension) Code(s): I10 - ESSENTIAL (PRIMARY) HYPERTENSION Status: Chronic Qualifiers: Hypertension type: essential hypertension Qualified Code(s): I10 - Essential (primary) hypertension - Plan social human services assistants Consults: Palliative Care Transition to comfort care measures Continue ASA Add Morphine Sulfate IV Ativan IV PRN Continue IVF's Continue Keppra 500mg BID Code Status: DNAR, no family for decision making Transfer to medical floor
[2019-12-27] MEDS ORDERED: Morphine 2 MG/ML SYRINGE SLOW IVP PRN (00:03)
[2019-12-27] MEDS: Morphine 4 MG/ML VIAL SLOW IVP PRN ×3 (00:32→18:46)
[2019-12-27] MEDS ORDERED: Scopolamine 1.5 mg/72 hour Patch TD SCH (01:00)
[2019-12-27] MEDS: Dextrose 5% in Water 1,000 ML IV SCH (09:00)
[2019-12-27] MEDS: levETIRAcetam 500 mg/5 ml Oral Solution PER TUBE SCH ×2 (09:33→21:23)
[2019-12-27] MEDS: Terazosin HCl 1 MG CAP PO SCH (09:33)
[2019-12-27] MEDS: Furosemide 20 MG/2 ML VIAL SLOW IVP SCH (09:36)
[2019-12-27] MEDS: Carvedilol 3.125 MG TAB PO SCH ×2 (09:36→16:27)
[2019-12-27] MEDS: Senokot S 8.6-50 MG TAB PO SCH ×2 (09:37→21:22)
[2019-12-27] MEDS: Aspirin 81 mg Enteric Coated Tablet PO SCH (09:37)
[2019-12-27] MEDS: Polyethylene Glycol 3350 17 GM Packet PO SCH ×2 (09:38→21:24)
[2019-12-27] MEDS: cloNIDine 0.1 MG TAB PO SCH ×3 (09:41→21:23)
[2019-12-27] MEDS: Acetaminophen 650 MG Suppository PR PRN (13:59)
--- NOTE | 2019-12-27 15:43 | PDOC.HOSPP ---
- Subjective Encounter Date: 12/27/19 Encounter Time: 15:40 Subjective: f/u for L MCA distribution CVA, dysphagia and now transitioning to comfort care with DNAR status. Nursing reports fever spike today. - Objective Vital Signs & Weight: Vital Signs (12 hours) Temp Pulse Resp BP BP Pulse Ox 12/27/19 15:31 134/91 H 12/27/19 11:23 100.3 F H 95 16 102/67 92 L 12/27/19 09:41 134/91 H 12/27/19 08:00 98.5 F 12/27/19 07:54 98.5 F 96 16 134/91 H 94 L Weight Admit Weight 200 lb Weight 183 lb 6.4 oz Most Recent Monitor Data Heart Rate from ECG 93 NIBP 119/91 NIBP BP-Mean 100 Respiration from ECG 30 SpO2 91 I&O: 12/26/19 12/27/19 12/28/19 06:59 06:59 06:59 Intake Total 5332 3418 230 Output Total 2350 3150 Balance 2982 268 230 Result Diagrams: 12/25/19 10:36 12/25/19 06:29 Additional Labs: Microbiology 12/24/19 15:10 Stool C. difficile GDH Antigen & Toxins - Final 12/23/19 00:43 Venous blood - Right Arm Blood Culture - Final Coagulase Neg Staphylococcus 12/14/19 22:27 Urine guillen catheter Urine Culture - Final Escherichia coli 12/23/19 00:44 Venous blood - Left Hand Blood Culture - Preliminary NO GROWTH AT 48 HOURS 12/01/19 22:11 Venous blood - Left Hand Blood Culture - Preliminary Specimen has been received and culture in progress. No Growth to date. 12/01/19 22:11 Venous blood - Left Hand Blood Culture - Preliminary NO GROWTH AT 48 HOURS 12/01/19 21:42 Venous blood - Left Hand Blood Culture - Preliminary Specimen has been received and culture in progress. No Growth to date. 12/01/19 21:42 Venous blood - Left Hand Blood Culture - Preliminary NO GROWTH AT 48 HOURS Laboratory Tests 12/01/19 12/01/19 12/01/19 17:30 17:30 21:48 WBC Sodium Creatinine Lactic Acid 1.2 Magnesium 1.8 AST 55 H Creatine Kinase 2595 H TSH 3rd Generation COVID-19 PCR 12/01/19 12/02/19 12/02/19 22:25 05:09 05:09 WBC Sodium Creatinine Lactic Acid Magnesium 1.7 AST 58 H Creatine Kinase 2558 H TSH 3rd Generation 1.0758 COVID-19 PCR Not Detected 12/22/19 12/23/19 12/24/19 05:19 04:49 03:06 WBC Sodium 147 H Creatinine 1.69 H 1.53 H 1.64 H Lactic Acid Magnesium AST Creatine Kinase TSH 3rd Generation COVID-19 PCR 12/24/19 03:06 WBC 17.9 H Sodium Creatinine Lactic Acid Magnesium AST Creatine Kinase TSH 3rd Generation COVID-19 PCR Hospitalist ROS - Medication Medications: Active Medications Generic Name Dose Route Start Last Admin Trade Name Freq PRN Reason Stop Dose Admin Acetaminophen 650 mg 12/14/19 19:43 12/27/19 13:59 Tylenol [place] 650 mg Q4H PRN Administration Headache/Fever or Pain Acetaminophen 650 mg 12/20/19 21:22 12/25/19 09:54 Tylenol Elixir PO 650 mg Q4H PRN Administration Headache/Fever /MILD Pain 1-3 Aspirin 81 mg 12/11/19 09:00 12/27/19 09:37 Ecotrin PO 81 mg DAILY ADALGISA Administration Carvedilol 6.25 mg 12/11/19 17:00 12/27/19 09:36 Coreg PO 6.25 mg BID-WM ADALGISA Administration Clonidine 0.2 mg 12/25/19 15:00 12/27/19 15:31 Catapres PO Not Given TID ADALGISA Furosemide 20 mg 12/26/19 09:00 12/27/19 09:36 Lasix SLOW IVP 20 mg DAILY ADALGISA Administration Dextrose/Water 1,000 mls @ 30 mls/hr 12/24/19 11:00 12/27/19 09:00 D5w IV 1,000 mls .Q24H ADALGISA Administration Labetalol HCl 10 mg 12/02/19 00:54 12/22/19 18:05 Normodyne SLOW IVP 10 mg Q4H PRN Administration Systolic BP > 180 Levetiracetam 500 mg 12/22/19 21:00 12/27/19 09:33 Keppra Oral Solution PER TUBE 500 mg BID ADALGISA Administration Morphine Sulfate 4 mg 12/26/19 13:11 12/27/19 14:02 Morphine SLOW IVP 4 mg Q1H PRN Administration Congestion Polyethylene Glycol 17 gm 12/06/19 21:00 12/27/19 09:38 Miralax PO 17 gm BID ADALGISA Administration Scopolamine 1.5 mg 12/27/19 01:00 12/27/19 00:29 Transderm Scop TD 1.5 mg Q3D@0100 ADALGISA Administration Senna/Docusate Sodium 2 tab 12/05/19 21:00 12/27/19 09:37 Senokot S PO 2 tab BID ADALGISA Administration Sodium Chloride 10 ml 12/01/19 23:09 12/24/19 21:07 Flush - Normal Saline IVF 10 ml PRN PRN Administration Saline Flush Terazosin HCl 1 mg 12/04/19 09:00 12/27/19 09:33 Hytrin PO 1 mg DAILY ADALGISA Administration - Exam General Appearance: ill appearing General - other findings: somnolent Eye: PERRL ENT: normocephalic atraumatic, no oropharyngeal lesions Neck: supple, symmetric, no JVD, no thyromegaly Heart: no gallops, no rubs, normal peripheral pulses, irregular Heart - other findings: S1, S2 Respiratory - other findings: few scattered coarse sounds Gastrointestinal: soft, non-tender, non-distended, normal bowel sounds Gastrointestinal - other findings: PEG in place Extremities: no cyanosis, no clubbing Skin: normal turgor, no lesions Neurological: no new deficit Neurological - other findings: mumbles, dyarthria, dysphagia Musculoskeletal: generalized weakness Psychiatric: somnolent, lethargic Hosp A/P (1) Acute CVA (cerebrovascular accident) Code(s): I63.9 - CEREBRAL INFARCTION, UNSPECIFIED Status: Acute Plan: Appears to be end-stage process, continue comfort measures (2) Expressive aphasia Code(s): R47.01 - APHASIA Status: Acute (3) Acute metabolic encephalopathy Code(s): G93.41 - METABOLIC ENCEPHALOPATHY Status: Acute (4) Chronic atrial fibrillation Code(s): I48.20 - CHRONIC ATRIAL FIBRILLATION, UNSPECIFIED Status: Chronic (5) Cardiomyopathy Code(s): I42.9 - CARDIOMYOPATHY, UNSPECIFIED Status: Acute Qualifiers: Cardiomyopathy type: unspecified Qualified Code(s): I42.9 - Cardiomyopathy , unspecified (6) HTN (hypertension) Code(s): I10 - ESSENTIAL (PRIMARY) HYPERTENSION Status: Chronic Qualifiers: Hypertension type: essential hypertension Qualified Code(s): I10 - Essential (primary) hypertension (7) Rhabdomyolysis Code(s): M62.82 - RHABDOMYOLYSIS Status: Resolved Qualifiers: Rhabdomyolysis type: non-traumatic Qualified Code(s): M62.82 - Rhabdomyolysis - Plan Consults: Palliative Care Continue comfort care measures Continue ASA/Coreg Add Morphine Sulfate IV Ativan IV PRN Saline lock IVF's Continue Keppra 500mg BID Code Status: DNAR, no family for decision making
[2019-12-27] MEDS: Lorazepam 2 MG/ML VIAL SLOW IVP PRN (21:55)
[2019-12-28] MEDS: Morphine 4 MG/ML VIAL SLOW IVP PRN ×5 (00:34→13:47)
[2019-12-28] MEDS: Lorazepam 2 MG/ML VIAL SLOW IVP PRN (02:16)
[2019-12-28] MEDS: Acetaminophen 650 MG Suppository PR PRN (06:02)
[2019-12-28] MEDS: cloNIDine 0.1 MG TAB PO SCH (08:16)
[2019-12-28] MEDS: levETIRAcetam 500 mg/5 ml Oral Solution PER TUBE SCH (08:16)
[2019-12-28] MEDS: Aspirin 81 mg Enteric Coated Tablet PO SCH (08:17)
[2019-12-28] MEDS: Carvedilol 3.125 MG TAB PO SCH (08:17)
[2019-12-28] MEDS: Senokot S 8.6-50 MG TAB PO SCH (08:17)
[2019-12-28] MEDS: Furosemide 20 MG/2 ML VIAL SLOW IVP SCH ×2 (08:17→10:39)
[2019-12-28] MEDS: Terazosin HCl 1 MG CAP PO SCH (08:18)
[2019-12-28] MEDS: Polyethylene Glycol 3350 17 GM Packet PO SCH (08:19)
[2019-12-28 12:00] VITALS: BP 138/74; TEMP 100.2
--- NOTE | 2019-12-28 12:56 | PDOC.HOSPP ---
- Subjective Encounter Date: 12/28/19 Encounter Time: 12:50 Subjective: f/u for L MCA territorial CVA on comfort care. Receiving Morphine/Ativan PRN. Nursing reports intermittent fevers. - Objective Vital Signs & Weight: Vital Signs (12 hours) Temp Pulse Resp BP BP Pulse Ox 12/28/19 11:30 100.2 F H 107 H 24 H 138/74 83 L 12/28/19 08:16 155/108 H 12/28/19 07:27 101.6 F H 112 H 20 155/108 H 90 L 12/28/19 05:50 102.2 F H 12/28/19 04:00 98.7 F 93 22 H 127/80 93 L 12/28/19 03:07 94 L Weight Admit Weight 200 lb Weight 183 lb 6.4 oz Most Recent Monitor Data Heart Rate from ECG 93 NIBP 119/91 NIBP BP-Mean 100 Respiration from ECG 30 SpO2 91 I&O: 12/27/19 12/28/19 12/29/19 06:59 06:59 06:59 Intake Total 3418 3797 Output Total 3150 2100 Balance 268 1697 Result Diagrams: 12/25/19 10:36 12/25/19 06:29 Additional Labs: Microbiology 12/24/19 15:10 Stool C. difficile GDH Antigen & Toxins - Final 12/23/19 00:43 Venous blood - Right Arm Blood Culture - Final Coagulase Neg Staphylococcus 12/14/19 22:27 Urine guillen catheter Urine Culture - Final Escherichia coli 12/23/19 00:44 Venous blood - Left Hand Blood Culture - Preliminary NO GROWTH AT 48 HOURS 12/01/19 22:11 Venous blood - Left Hand Blood Culture - Preliminary Specimen has been received and culture in progress. No Growth to date. 12/01/19 22:11 Venous blood - Left Hand Blood Culture - Preliminary NO GROWTH AT 48 HOURS 12/01/19 21:42 Venous blood - Left Hand Blood Culture - Preliminary Specimen has been received and culture in progress. No Growth to date. 12/01/19 21:42 Venous blood - Left Hand Blood Culture - Preliminary NO GROWTH AT 48 HOURS Laboratory Tests 12/01/19 12/01/19 12/01/19 17:30 17:30 21:48 WBC Sodium Creatinine Lactic Acid 1.2 Magnesium 1.8 AST 55 H Creatine Kinase 2595 H TSH 3rd Generation COVID-19 PCR 12/01/19 12/02/19 12/02/19 22:25 05:09 05:09 WBC Sodium Creatinine Lactic Acid Magnesium 1.7 AST 58 H Creatine Kinase 2558 H TSH 3rd Generation 1.0758 COVID-19 PCR Not Detected 12/22/19 12/23/19 12/24/19 05:19 04:49 03:06 WBC Sodium 147 H Creatinine 1.69 H 1.53 H 1.64 H Lactic Acid Magnesium AST Creatine Kinase TSH 3rd Generation COVID-19 PCR 12/24/19 03:06 WBC 17.9 H Sodium Creatinine Lactic Acid Magnesium AST Creatine Kinase TSH 3rd Generation COVID-19 PCR Hospitalist ROS - Medication Medications: Active Medications Generic Name Dose Route Start Last Admin Trade Name Freq PRN Reason Stop Dose Admin Acetaminophen 650 mg 12/14/19 19:43 12/28/19 06:02 Tylenol ND 650 mg Q4H PRN Administration Headache/Fever or Pain Acetaminophen 650 mg 12/20/19 21:22 12/25/19 09:54 Tylenol Elixir PO 650 mg Q4H PRN Administration Headache/Fever /MILD Pain 1-3 Aspirin 81 mg 12/11/19 09:00 12/28/19 08:17 Ecotrin PO 81 mg DAILY ADALGISA Administration Carvedilol 6.25 mg 12/11/19 17:00 12/28/19 08:17 Coreg PO 6.25 mg BID-WM ADALGISA Administration Clonidine 0.1 mg 12/27/19 21:00 12/28/19 08:16 Catapres PO 0.1 mg BID ADALGISA Administration Furosemide 20 mg 12/26/19 09:00 12/28/19 10:39 Lasix SLOW IVP 20 mg DAILY ADALGISA Administration Labetalol HCl 10 mg 12/02/19 00:54 12/22/19 18:05 Normodyne SLOW IVP 10 mg Q4H PRN Administration Systolic BP > 180 Levetiracetam 500 mg 12/22/19 21:00 12/28/19 08:16 Keppra Oral Solution PER TUBE 500 mg BID ADALGISA Administration Lorazepam 1 mg 12/26/19 10:44 12/28/19 02:16 Ativan SLOW IVP 1 mg Q4H PRN Administration Anxiety/Agitation Morphine Sulfate 4 mg 12/26/19 13:11 12/28/19 10:38 Morphine SLOW IVP 4 mg Q1H PRN Administration Congestion Polyethylene Glycol 17 gm 12/06/19 21:00 12/28/19 08:19 Miralax PO 17 gm BID ADALGISA Administration Scopolamine 1.5 mg 12/27/19 01:00 12/27/19 00:29 Transderm Scop TD 1.5 mg Q3D@0100 ADALGISA Administration Senna/Docusate Sodium 2 tab 12/05/19 21:00 12/28/19 08:17 Senokot S PO 2 tab BID ADALGISA Administration Sodium Chloride 10 ml 12/01/19 23:09 12/24/19 21:07 Flush - Normal Saline IVF 10 ml PRN PRN Administration Saline Flush Terazosin HCl 1 mg 12/04/19 09:00 12/28/19 08:18 Hytrin PO 1 mg DAILY ADALGISA Administration - Exam General Appearance: ill appearing General - other findings: unresponsive, dyspnea ENT: normocephalic atraumatic, no oropharyngeal lesions, dry oral mucosa Neck: supple, symmetric, no JVD, no thyromegaly Heart: no murmur, no gallops, no rubs, normal peripheral pulses, irregular Heart - other findings: S1, S2 tachycardic Respiratory: CTAB, tachypneic Respiratory - other findings: diminished in bases Gastrointestinal: soft, non-tender, non-distended, normal bowel sounds Gastrointestinal - other findings: PEG in place Extremities: no cyanosis, no edema Skin: normal turgor Neurological - other findings: Unresponsive Psychiatric: somnolent, lethargic Hosp A/P (1) Acute CVA (cerebrovascular accident) Code(s): I63.9 - CEREBRAL INFARCTION, UNSPECIFIED Status: Acute Plan: End-stage process, comfort measures (2) Expressive aphasia Code(s): R47.01 - APHASIA Status: Acute Plan: Continue TF's @ 60ml/h (3) Acute metabolic encephalopathy Code(s): G93.41 - METABOLIC ENCEPHALOPATHY Status: Acute (4) Chronic atrial fibrillation Code(s): I48.20 - CHRONIC ATRIAL FIBRILLATION, UNSPECIFIED Status: Chronic (5) Cardiomyopathy Code(s): I42.9 - CARDIOMYOPATHY, UNSPECIFIED Status: Acute Qualifiers: Cardiomyopathy type: unspecified Qualified Code(s): I42.9 - Cardiomyopathy , unspecified (6) HTN (hypertension) Code(s): I10 - ESSENTIAL (PRIMARY) HYPERTENSION Status: Chronic Qualifiers: Hypertension type: essential hypertension Qualified Code(s): I10 - Essential (primary) hypertension (7) Rhabdomyolysis Code(s): M62.82 - RHABDOMYOLYSIS Status: Resolved Qualifiers: Rhabdomyolysis type: non-traumatic Qualified Code(s): M62.82 - Rhabdomyolysis - Plan respiratory therapy, DVT proph w/SCDs Consults: Palliative Care Continue comfort care measures Continue ASA/Coreg Morphine Sulfate IV Ativan IV PRN Saline lock IVF's Continue Keppra 500mg BID Code Status: DNAR, no family for decision making
[2019-12-28 15:05] VITALS: BMI 26.3
--- NOTE | 2019-12-28 23:25 | DIS ---
DATE OF ADMISSION: 12/01/2019 DATE OF DISCHARGE: 12/28/2019 FINAL DIAGNOSES: 1. Acute left frontal lobe cerebrovascular accident. 2. Expressive aphasia secondary to #1. 3. Acute metabolic encephalopathy multifactorial. 4. Chronic atrial fibrillation. 5. Ischemic cardiomyopathy with ejection fraction of 25% to 30%. 6. Hypertension. 7. Acute kidney injury. 8. Urinary tract infection with Escherichia coli. CONSULTATIONS: 1. Dr. Stanton with Cardiology Service. 2. Dr. Fraser with GI Service. 3. Dr. Toro with General Surgery Service. 4. Dr. Griffin with Nephrology Service. 5. Dr. Randall with Neurology Service. 6. Dr. Leroy with Pulmonary Critical Care Service. PERTINENT LABORATORY AND X-RAY FINDINGS: Creatinine ranged between 0.63 to 2.86, estimated GFR ranged between 22 to greater than 90. Total cholesterol 65, triglycerides 44, HDL 21, LDL 35. TSH 1.08. CBC showed a white blood cell count ranging between 7.1 to 19.6, platelet count ranged between 97 to 193. COVID-19 PCR negative x2 on 12/01/2019 and 12/23/2019. Blood cultures x2 dated 12/01/2019, showed no growth at 5 days. Blood cultures x2 dated 12/14/2019, showed no growth at 5 days. Urine culture dated 12/14/2019, showed [id number] colonies of E coli pansensitive. Blood cultures x2 dated 12/23/2019, showed 1/2 positive for coagulase-negative Staphylococcus, likely skin contaminant. C difficile antigen and toxin dated 12/24/2019, negative. CT of the brain without contrast dated 12/01/2019, showed acute subacute infarct involving the left frontal lobe. Large area of encephalomalacia involving the right cerebral hemisphere consistent with old infarct. MRI of the brain dated 12/02/2019, showed moderately large acute/subacute infarct of the left middle cerebral artery territory. Small region of hemorrhagic transformation. Moderately large old infarction in the contralateral right middle cerebral artery distribution. 2D transthoracic echocardiogram dated 12/03/2019, showed ejection fraction of 25% to 30%. Moderately enlarged right ventricular cavity. Moderate left atrial enlargement. Moderate to severe mitral regurgitation. Moderate tricuspid regurgitation. Abdominal radiographs dated 12/05/2019. Large lower abdominal pelvic mass likely representing urinary distention. Multiple dilated small bowel loops. CT of the abdomen and pelvis dated 12/05/2019, showed severe distention of the urinary bladder. Mild bilateral hydronephrosis. Large volume constipation in the distal aspect of the rectum. CT of the brain without contrast dated 12/05/2019, showed acute early subacute moderate-sized infarct in the left middle cerebral artery territory. Moderately large old infarct in the contralateral right middle cerebral artery territory. CT of the brain without contrast dated 12/14/2019, showed slightly less prominent region of hemorrhagic conversion involving the left anterior insular cortex in the left middle cerebral artery distribution infarct. Improving cytotoxic edema of the left middle cerebral artery distribution infarct. Bilateral lower extremity venous Doppler study dated 12/16/2019, showed positive bilateral lower extremity deep venous thrombosis. Modified barium swallow exam dated 12/17/2019, showed partial clearance with secondary swallowing. Significant pooling within the vallecula and piriform sinuses. CT of the brain without contrast dated 12/24/2019, showed no evidence of hemorrhagic transformation of the acute left frontal infarct since 12/17/2019. Old right MCA territorial infarct. HOSPITAL COURSE: The patient was initially admitted after presenting with altered mentation. The patient underwent neurologic evaluation including CT imaging of the brain showing evidence of acute/subacute infarct of the left middle cerebral artery territory. The patient also with associated encephalopathy due to the CVA and low-grade fever of unclear etiology. The patient was placed on Keppra and vancomycin in the emergency room and transferred to the Stroke Unit. The patient received general stroke protocol with treatment with aspirin and statin agents. The patient was also initiated on IV fluids due to rhabdomyolysis, likely multifactorial including the use of statin agents. The patient continue general stroke protocol, undergoing MRI imaging of the brain confirming areas of acute and subacute infarct in the left middle cerebral artery territory. The patient was slow to clinically improve, however, was deemed an aspiration risk after modified barium swallow exam. The patient underwent subsequent PEG tube placement on 12/18/2019 and tolerated tube feeds. The patient remained with waxing and waning mental status, likely multifactorial process. The patient continued to clinically decline post CVA and was discussed regarding ongoing aggressive interventions versus palliative measures given patient's comorbid conditions for clinical improvement despite maximum stroke intervention and therapy. The patient was not deemed an appropriate candidate for ongoing aggressive measures and was converted to do not attempt resuscitation status and comfort care. The patient transferred to the medical floor and subsequently on 12/28/2019 at 1545 hours. Job ID: [id number]
== END 2019-12-28 15:45 | disposition expired | DRG 64 ==
LOC: ERS 17:04 → EEVIPCON 21:01 → 2SW 21:01 → 2SE 12-18 22:09 → IMCU/EMU 12-23 12:11 → T4-A 12-26 20:04
PROVIDERS: ADMIT Family Medicine; ATTEND Internal Medicine
PROC: 8E0ZXY6 Isolation (ICD-10-PCS; 2019-12-01)
PROC: 0DJ08ZZ Inspection of Upper Intestinal Tract, Via Natural or Artificial Opening Endoscopic (ICD-10-PCS; principal; 2019-12-18)
PROC: 0D9670Z Drainage of Stomach with Drainage Device, Via Natural or Artificial Opening (ICD-10-PCS; 2019-12-18)
PROC: 0DH64UZ Insertion of Feeding Device into Stomach, Percutaneous Endoscopic Approach (ICD-10-PCS; 2019-12-19)
PROC: 0DJ08ZZ Inspection of Upper Intestinal Tract, Via Natural or Artificial Opening Endoscopic (ICD-10-PCS; 2019-12-19)
DX: I63.9 Cerebral infarction, unspecified (principal); G92 Toxic encephalopathy; I61.9 Nontraumatic intracerebral hemorrhage, unspecified; J69.0 Pneumonitis due to inhalation of food and vomit; A41.9 Sepsis, unspecified organism; G93.6 Cerebral edema; N17.9 Acute kidney failure, unspecified; I69.354 Hemiplegia and hemiparesis following cerebral infarction affecting left non-dominant side; M62.82 Rhabdomyolysis; I42.0 Dilated cardiomyopathy; N13.6 Pyonephrosis; I47.1 Supraventricular tachycardia; I82.4Z3 Acute embolism and thrombosis of unspecified deep veins of distal lower extremity, bilateral; E87.0 Hyperosmolality and hypernatremia; E87.2 Acidosis; I13.0 Hypertensive heart and chronic kidney disease with heart failure and stage 1 through stage 4 chronic kidney disease, or unspecified chronic kidney disease; I50.22 Chronic systolic (congestive) heart failure; I48.20 Chronic atrial fibrillation, unspecified; Z20.828 Contact with and (suspected) exposure to other viral communicable diseases; Z51.5 Encounter for palliative care; Z66 Do not resuscitate; I08.1 Rheumatic disorders of both mitral and tricuspid valves; N32.89 Other specified disorders of bladder; K59.09 Other constipation; K74.60 Unspecified cirrhosis of liver; N40.0 Benign prostatic hyperplasia without lower urinary tract symptoms; F32.9 Major depressive disorder, single episode, unspecified; I25.5 Ischemic cardiomyopathy; B96.20 Unspecified Escherichia coli [E. coli] as the cause of diseases classified elsewhere; R47.01 Aphasia; G40.909 Epilepsy, unspecified, not intractable, without status epilepticus; E87.8 Other disorders of electrolyte and fluid balance, not elsewhere classified; F03.90 Unspecified dementia, unspecified severity, without behavioral disturbance, psychotic disturbance, mood disturbance, and anxiety; R33.9 Retention of urine, unspecified; E78.5 Hyperlipidemia, unspecified; M19.90 Unspecified osteoarthritis, unspecified site; R13.12 Dysphagia, oropharyngeal phase; B18.2 Chronic viral hepatitis C; D63.1 Anemia in chronic kidney disease; N18.3 Chronic kidney disease, stage 3 (moderate); R47.1 Dysarthria and anarthria; K44.9 Diaphragmatic hernia without obstruction or gangrene; Z79.01 Long term (current) use of anticoagulants
CPT/HCPCS: 36415; 36416; 51701; 70450; 70551; 71045; 74018; 74177; 74230; 80048; 80053; 80061; 80202; 81001; 81003; 81015; 82550; 82553; 82565; 82805; 83605; 83735; 84100; 84145; 84443; 84484; 85007; 85014; 85018; 85025; 85027; 85049; 85610; 85730; 87040; 87077; 87086; 87149; 87186; 87324; 87449; 87635; 93005; 93306; 93798; 93880; 93970; 94640; 94760; 95816; 95819; 96361; 96365; J0690; J0692; J1100; J1644; J1650; J1940; J1953; J2001; J2060; J2185; J2270; J2405; J2543; J2704; J3010; J3370; J3475; J3480; J3490; J7030; J7070; J7620; P9045; Q9967; S0020; S0028; U0003